=== PATIENT | female | born 1980 | race Caucasian/White ===

== ENCOUNTER 2016-06-22 16:48 | Emergency (ER) | payer MEDICAID ==
[~2016-06-22] VITALS: Ht 167.6 cm; Wt 132.3 kg
[~2016-06-22 16:48] MED LIST: ALBU17AE3 IH; AZIT-21; CEPH500C PO; CIPR-225 PO; HYDR-3714 PO; HYDR-87 PO; IBP600T1 PO; LORA10TA2; PHEN-640 PO; PRM25T PO; QUET100T PO; VNL75T PO
--- OUTSIDE RECORDS SUMMARY | 2016-06-22 16:53 | XMS REPORT | Continuity of Care Document ---
Author Author [facility] Organization [facility] Address Unknown Phone Unavailable Care Team Providers Care Web Systems Developer Name Role Phone PCP Unavailable Source Comments Some departments are not documenting in the electronic medical record. If you do not see the information that you expected, contact Release of Information in the Health Information Management department at [phone] for further assistance in locating additional records.[facility] Active Allergies and Adverse Reactions Not on File Current Medications Not on file Active Problems Not on file Social History Tobacco Use Types Packs/Day Years Used Date Never Assessed Plan of Care Health Maintenance Due Date Last Done Comments Physical (Comprehensive) 02/23/1988 Exam Pertussis Vaccine 02/23/1992 Tetanus Vaccine 1998 Cervical Cancer Screening 2002 Influenza Vaccine 01/15/2016 Results from Last 3 Months Not on file
[2016-06-22] MEDS ORDERED: FURO40TA4 PO (17:31)
[2016-06-22] MEDS ORDERED: POTA10TA10 PO (17:31)
--- NOTE | 2016-06-22 17:38 | ED Upper Extremity ---
General Chief Complaint: Upper Extremity Stated Complaint: L HAND PAIN FROM INJURY Nursing Triage Note: l finger pain after injuring it last night. Nursing Sepsis Screen: No Definite Risk Source: patient, family (sister) Exam Limitations: language barrier (sister interprets) History of Present Illness Time seen by provider: 17:38 Initial Comments 36-year-old female patient presents to the emergency department complains of left 2nd finger pain after falling last night. Reports jamming the finger into the ground. Denies hitting her head, loss of consciousness, neck pain, back pain. Location Injury Occurred: home Onset: yesterday Pain/Injury Location: left 2nd finger Method of Injury: direct blow Modifying Factors: Worse With Movement Allergies and Home Medications Allergies Coded Allergies: pseudoephedrine (Unverified Allergy, Unknown, 01/20/16) Home Medications Furosemide 40 Mg Tablet #30 40 MG PO DAILY (Reported) Hydrocodone/Ibuprofen 1 Each Tablet 1 EACH PO Q6H PRN PRN PAIN (Reported) Potassium Chloride 10 Meq Tablet.er #30 10 MEQ PO DAILY (Reported) Quetiapine Fumarate 100 Mg Tablet 100 MG PO HS (Reported) Venlafaxine HCl 75 Mg Tab 75 MG PO BID (Reported) Constitutional: no symptoms reported Musculoskeletal: see HPI joint pain (left second finger)No joint swelling Skin: No change in color, No lumps Psychiatric/Neurological: Denies Numbness, Denies Paresthesia, Denies Tingling , Denies Weakness All Other Systems Reviewed Negative Unless Noted: Yes (Negative excepted noted.) Past Dhehbsf-Vhhlmj-Xwnech Hx Patient Social History Alcohol Use: Denies Use Recreational Drug Use: No Smoking Status: Current Everyday Smoker Type Used: Cigarettes Recent Foreign Travel: No Contact w/Someone Who Travel: No Recent Infectious Disease Expo: No Recent Hopitalizations: No Seasonal Allergies Seasonal Allergies: No Surgeries HX Surgeries: Yes (kidney surgery at age 4, R knee scope) Surgeries: Gallbladder, Orthopedic Respiratory Hx Respiratory Disorders: Yes Respiratory Disorders: Asthma Cardiovascular Hx Cardiac Disorders: No Neurological Hx Neurological Disorders: No Reproductive System Hx Reproductive Disorders: No Sexually Transmitted Disease: No Genitourinary Hx Genitourinary Disorders: Yes (kidney surgery at age 4, left ureteral obstruction) Gastrointestinal Hx Gastrointestinal Disorders: No Musculoskeletal Hx Musculoskeletal Disorders: No Endocrine Hx Endocrine Disorders: No HEENT HX ENT Disorders: Yes Hearing Impairment: Hard of Hearing, Deaf Cancer Hx Cancer: No Psychosocial Hx Psychiatric Problems: Yes Behavioral Health Disorders: Anxiety, Bipolar, Depression Integumentary HX Skin/Integumentary Disorder: Yes Skin/Integumentary Disorders: Psoriasis Blood Transfusions Hx Blood Disorders: No Reviewed Nursing Assessment Reviewed/Agree w Nursing PMH: Yes Family Medical History Significant Family History: No Pertinent Family Hx Physical Exam Vital Signs Vital Sign - Last 12Hours 06/22/16 17:31 Temp 96.0 Pulse 66 Resp 20 B/P 116/72 Pulse Ox 100 Capillary Refill : Less Than 3 Seconds General Appearance: WD/WN no apparent distress Elbow/Forearm: normal inspection, non-tender, no evidence of injury, normal ROM , Left Wrist: Yes normal inspection, Yes non-tender, Yes no evidence of injury, Yes normal ROM Hand: Left, bone tenderness (left second finger), limited ROM (left second finger), soft tissue tenderness (left second finger), stiffness (left second finger) Neurologic/Tendon: normal sensation normal motor functions normal tendon functions responds to pain no evidence tendon injury Neurologic/Psychiatric: no motor/sensory deficits alert normal mood/affect oriented x 3 Skin: normal color warm/dry Progress/Results/Core Measures Results/Orders My Orders Orders-ASIA MCMILLAN Hand, Left, 3 Views (06/22/16 17:09) Tramadol Tablet (Ultram Tablet) (06/22/16 17:53) Vital Signs/I&O Vital Sign - Last 12Hours 06/22/16 17:31 Temp 96.0 Pulse 66 Resp 20 B/P 116/72 Pulse Ox 100 Blood Pressure Mean: 87 Diagnostic Imaging Diagonstic Imaging: Xray Plain Films/CT/US/NM/MRI: hand Comments FINDINGS: Three views of the left hand demonstrate normal ossification. No fracture, dislocation or foreign body is present. IMPRESSION: Normal left hand. Dictated by: Dictated on workstation # [id number] Reviewed: Reviewed by Me (radiology report reviewed by me) Departure Communication Progress Notes Diagnostic findings discussed with the patient and family. Proceed with discharge to home. Fingers jaylin taped in the ED. Impression Impression: Primary Impression: Jammed interphalangeal joint of finger of left hand Qualified Code: S69.92XA - Unspecified injury of left wrist, hand and finger(s ), initial encounter Disposition: 01 HOME, SELF-CARE Condition: Improved Departure-Patient Inst. Decision time for Depature: :56 Referrals: SINAN QUINONES MD (PCP/Family) Primary Care Physician Patient Instructions: Lissa Stout (DC) Add. Discharge Instructions: All discharge instructions reviewed with patient and/or family. Voiced understanding. Tylenol extra strength [id number] as directed for pain. Ibuprofen 800 mg by mouth every 8 hours as needed for pain. Elevate the left hand on pillows, ice pack for 20 minute intervals as needed for pain. States that he tape the finger to the middle finger. Follow-up with the family practitioner if no improvement in symptoms in 7-10 days. Return to the emergency department for worsened symptoms or any other concerns. ASIA MCMILLAN Jun 22, 2016 17:38
--- NOTE | 2016-06-22 17:40 | Diagnostic Imaging Report ---
INDICATION: Fell last night, jammed left second digit; pain entire digit. FINDINGS: Three views of the left hand demonstrate normal ossification. No fracture, dislocation or foreign body is present. IMPRESSION: Normal left hand. Dictated by: Dictated on workstation # [id number]
[2016-06-22 18:06] VITALS: BP 130/72
== END 2016-06-22 18:06 | disposition home or self-care (01) ==
LOC: EDUNIT# 16:48 → ER 16:49
DX: S69.82XA Other specified injuries of left wrist, hand and finger(s), initial encounter (principal); W23.1XXA Caught, crushed, jammed, or pinched between stationary objects, initial encounter; W01.0XXA Fall on same level from slipping, tripping and stumbling without subsequent striking against object, initial encounter; Y99.8 Other external cause status; F17.210 Nicotine dependence, cigarettes, uncomplicated
CPT/HCPCS: 73130; 99282

== ENCOUNTER 2016-07-10 22:33 | Emergency (ER) | payer MEDICAID ==
[~2016-07-10] VITALS: Ht 167.6 cm; Wt 127.9 kg
[~2016-07-10 22:33] MED LIST changes: +FURO40TA4 PO; +POTA10TA10 PO
--- OUTSIDE RECORDS SUMMARY | 2016-07-10 22:39 | XMS REPORT | Continuity of Care Document ---
Author Author [facility] Organization [facility] Address Unknown Phone Unavailable Care Team Providers Care C Developer Name Role Phone PCP Unavailable Source Comments Some departments are not documenting in the electronic medical record. If you do not see the information that you expected, contact Release of Information in the Health Information Management department at [phone] for further assistance in locating additional records.[facility] Active Allergies and Adverse Reactions Not on [...]
--- NOTE | 2016-07-10 23:00 | ED Lower Extremity ---
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 NO OTHER C/O VOICED Nursing Sepsis Screen: No Definite Risk Source: patient, RN notes reviewed Exam Limitations: no limitations History of Present Illness Time seen by provider: 23:00 Initial Comments As above and below. C/O pain and an abrasion. Tetanus is reportedly up to date. Denies any other injuries. Onset: just prior to arrival Severity: moderate Pain/Injury Location: left knee Method of Injury: fell Modifying Factors: Worse With Movement, Improves With Rest Allergies and Home Medications Allergies Coded Allergies: pseudoephedrine (Unverified Allergy, Unknown, 01/20/16) Home Medications Diclofenac Potassium 50 Mg Tablet #30 50 MG PO Q8H PRN PRN KNEE PAIN/SWELLING Prescribed by: BANDAR OSORIO on 07/10/16 2340 Furosemide 40 Mg Tablet #30 40 MG PO DAILY (Reported) Hydrocodone/Ibuprofen 1 Each Tablet 1 EACH PO Q6H PRN PRN PAIN (Reported) Potassium Chloride 10 Meq Tablet.er #30 10 MEQ PO DAILY (Reported) Quetiapine Fumarate 100 Mg Tablet 100 MG PO HS (Reported) Venlafaxine HCl 75 Mg Tab 75 MG PO BID (Reported) Constitutional: see HPI : No Musculoskeletal: see HPI other ((+) left knee pain) Skin: see HPI other ((+) abrasion left knee) All Other Systems Reviewed Negative Unless Noted: Yes (Negative excepted noted.) Past Cvctyit-Rbkihk-Jrimqf Hx Patient Social History Alcohol Use: Denies Use Recreational Drug Use: No Smoking Status: Current Everyday Smoker Type Used: Cigarettes Recent Foreign Travel: No Contact w/Someone Who Travel: No Recent Infectious Disease Expo: No Recent Hopitalizations: No Seasonal Allergies Seasonal Allergies: No Surgeries HX Surgeries: Yes (kidney surgery at age 4, R knee scope) Surgeries: Gallbladder, Orthopedic Respiratory Hx Respiratory Disorders: Yes Respiratory Disorders: Asthma Cardiovascular Hx Cardiac Disorders: No Neurological Hx Neurological Disorders: No Reproductive System Hx Reproductive Disorders: No Sexually Transmitted Disease: No Genitourinary Hx Genitourinary Disorders: Yes (kidney surgery at age 4, left ureteral obstruction) Gastrointestinal Hx Gastrointestinal Disorders: No Musculoskeletal Hx Musculoskeletal Disorders: No Endocrine Hx Endocrine Disorders: No HEENT HX ENT Disorders: Yes Hearing Impairment: Hard of Hearing, Deaf Cancer Hx Cancer: No Psychosocial Hx Psychiatric Problems: Yes Behavioral Health Disorders: Anxiety, Bipolar, Depression Integumentary HX Skin/Integumentary Disorder: Yes Skin/Integumentary Disorders: Psoriasis Blood Transfusions Hx Blood Disorders: No Family Medical History Significant Family History: No Pertinent Family Hx Physical Exam Vital Signs Vital Sign - Last 12Hours 07/10/16 22:45 Temp 97.8 Pulse 77 Resp 20 B/P 116/81 Pulse Ox 99 O2 Delivery Room Air Capillary Refill : Less Than 3 Seconds General Appearance: WD/WN mild distress obese Cardiovascular: regular rate, rhythm Respiratory: no respiratory distress Gastrointestinal: other (obese) Knees: left knee pain, left knee soft tissue tenderness Neurologic/Psychiatric: no motor/sensory deficits alert oriented x 3 Skin: warm/dry other (road rash like abrasion left anterior knee) Progress/Results/Core Measures Results/Orders My Orders Orders-BANDAR OSORIO DO Knee, Left, 3 Views (07/10/16 23:00) Knee Immobilizer (07/10/16 23:36) Rx-Tramadol Hcl (Rx-Ultram) (07/10/16 23:36) Vital Signs/I&O Vital Sign - Last 12Hours 07/10/16 22:45 Temp 97.8 Pulse 77 Resp 20 B/P 116/81 Pulse Ox 99 O2 Delivery Room Air Blood Pressure Mean: 93 Diagnostic Imaging Diagonstic Imaging: Xray Plain Films/CT/US/NM/MRI: knee (appears negative for anything acute) Departure Impression Impression: Primary Impression: Fall Additional Impressions: Contusion of knee, left Abrasion Disposition: 01 HOME, SELF-CARE Condition: Stable Departure-Patient Inst. Decision time for Depature: 23:38 Referrals: SINAN QUINONES MD (PCP/Family) Primary Care Physician Patient Instructions: Contusion (DC), Skin Abrasions (DC) Add. Discharge Instructions: All discharge instructions reviewed with patient and/or family. Voiced understanding. WILL NEED TO FOLLOW UP WITH YOUR PCP IF NOT DOING BETTER IN 5-7 DAYS. IF THAT IS THE CASE, MAY NEED A MRI OF YOUR KNEE. Scripts Diclofenac Potassium 50 Mg Tcreia91 Mg PO Q8H PRN KNEE PAIN/SWELLING #30 TAB Ref 0 Prov:BANDAR OSORIO DO 07/10/16 BANDAR OSORIO DO Jul 10, 2016 23:00
[2016-07-10] MEDS ORDERED: RX-TRAMADOL 50 MG (ULTRAM) TAB PPK#4 PO STA (23:36)
[2016-07-10] MEDS ORDERED: DICL50TA4 PO (23:40)
[2016-07-10 23:43] VITALS: BP 0/0
--- NOTE | 2016-07-11 06:45 | Diagnostic Imaging Report ---
INDICATION: Knee pain COMPARISON: 01/11/13 FINDINGS: 3 views of the left knee are obtained. No acute fracture, malalignment or osseous destructive process is seen. The joint spaces are preserved and the articular margins appear smooth. There is no evidence of joint effusion. There is, however, moderate soft tissue swelling ventral to the patella and patellar tendon. IMPRESSION: Soft tissue swelling ventral to the knee. No additional abnormality is demonstrated. Dictated by: Dictated on workstation # [id number]
== END 2016-07-10 23:43 | disposition home or self-care (01) ==
LOC: EDUNIT# 22:33 → ER 22:36
DX: S80.02XA Contusion of left knee, initial encounter (principal); F17.210 Nicotine dependence, cigarettes, uncomplicated; W01.0XXA Fall on same level from slipping, tripping and stumbling without subsequent striking against object, initial encounter; Y99.8 Other external cause status
CPT/HCPCS: 73562; 99283

== ENCOUNTER 2016-07-28 08:45 | Outpatient (RCR) | payer MEDICAID ==
--- OUTSIDE RECORDS SUMMARY | 2016-07-27 16:37 | XMS REPORT | Continuity of Care Document ---
Author Author [facility] Organization [facility] Address Unknown Phone Unavailable Care Team Providers Care Die Barber Name Role Phone PCP Unavailable Source Comments Some departments are not documenting in the electronic medical record. If you do not see the information that you expected, contact Release of Information in the Health Information Management department at [phone] for further assistance in locating additional records.[facility] Active Allergies and Adverse Reactions Not [...]
[2016-07-27 17:00] LABS: RED BLOOD COUNT 2.72 10^6/uL (4.35-5.85); RETICULOCYTE % 2.31 % (0.50-2.40)
[~2016-07-28] VITALS: Ht 167.6 cm; Wt 128.2 kg
[2016-07-28] VITALS (8 sets, daily range): BP systolic 107–128; BP diastolic 61–83
[~2016-07-28 08:45] MED LIST changes: +DICL50TA4 PO
--- OUTSIDE RECORDS SUMMARY | 2016-07-28 08:57 | XMS REPORT | Continuity of Care Document ---
Author Author [facility] Organization [facility] Address Unknown Phone Unavailable Care Team Providers Care Surfboard Maker Name Role Phone PCP Unavailable Source Comments Some departments are not documenting in the electronic medical record. If you do not see the information that you expected, contact Release of Information in the Health Information Management department at [phone] for further assistance in locating additional records.[facility] Active Allergies and Adverse Reactions Not [...]
[2016-07-28] MEDS ORDERED: NS IV 500 ML 500 ML IV ONE (14:15)
[2016-07-28 15:34] LABS: %SAT TOTAL IRON BINDING CAPIC 2 % (15-50); TIBC <461 ug/dL (280-380)
[2016-07-29 07:37] LABS: UIBC 451 ug/dL (55-450)
[2016-08-01] MEDS ORDERED: CEFD300C3 PO (02:32)
[2016-08-20] MEDS ORDERED: FERR-65 PO (02:02)
[2016-08-20] MEDS ORDERED: PERM60CR4 TP (02:06)
[2016-08-20] MEDS ORDERED: PERM59LI4 TP (02:06)
[2016-09-20] MEDS ORDERED: FERR-74 PO (16:36)
[2016-09-20] MEDS ORDERED: QUET100T69 PO (16:36)
[2016-09-21] MEDS ORDERED: VNL75T PO (15:46)
[2016-09-25] MEDS ORDERED: SULF1TAB35 PO (10:47)
[2016-09-25] MEDS ORDERED: PANT40TA3 PO (10:47)
== END 2016-10-25 | disposition home or self-care (01) ==
LOC: LAB 08:45 → EDSTATUS 08:53
PROVIDERS: ATTEND Internal Medicine
DX: D64.9 Anemia, unspecified (principal)
CPT/HCPCS: 36415; 36430; 82728; 83540; 85045; 86850; 86900; 86901; 86920

== ENCOUNTER 2016-07-31 23:12 | Emergency (ER) | payer MEDICAID ==
[~2016-07-31] VITALS: Ht 167.6 cm; Wt 127.5 kg
--- OUTSIDE RECORDS SUMMARY | 2016-07-31 23:19 | XMS REPORT | Continuity of Care Document ---
Author Author [facility] Organization [facility] Address Unknown Phone Unavailable Care Team Providers Care Continuous Improvement Facilitator Name Role Phone PCP Unavailable Source Comments Some departments are not documenting in the electronic medical record. If you do not see the information that you expected, contact Release of Information in the Health Information Management department at [phone] for further assistance in locating additional records.[facility] Active Allergies and Adverse Reactions Not [...]
[2016-08-01 00:40] LABS: BASOPHILS % (AUTO) 0 % (0-10); EOSINOPHILS # (AUTO) 0.7 10^3/uL (0.0-0.3); EOSINOPHILS % (AUTO) 7 % (0-10); LYMPHOCYTES # (AUTO) 1.3 X 10^3 (1.0-4.0); LYMPHOCYTES % (AUTO) 12 % (12-44); MEAN CORPUSCULAR HEMOGLOBIN 22 PG (25-34); MEAN CORPUSCULAR HGB CONC 29 G/DL (32-36); MEAN CORPUSCULAR VOLUME 73 FL (80-99); MEAN PLATELET VOLUME 9.8 FL (7.4-10.4); MONOCYTES % (AUTO) 9 % (0-12); NEUTROPHILS # (AUTO) 7.8 X 10^3 (1.8-7.8); NEUTROPHILS % (AUTO) 72 % (42-75); PLATELET COUNT 510 10^3/uL (130-400); RED BLOOD COUNT 3.25 10^6/uL (4.35-5.85); WHITE BLOOD COUNT 10.8 10^3/uL (4.3-11.0)
[2016-08-01 00:48] LABS: INR 1.1 (0.8-1.4); PROTHROMBIN TIME PATIENT 14.3 SEC (12.2-14.7)
[2016-08-01 01:02] LABS: ALANINE AMINOTRANSFERASE 12 U/L (0-55); ALBUMIN 3.1 G/DL (3.2-4.5); ANION GAP 11 MMOL/L (5-14); ASPARTATE AMINO TRANSFERASE 12 U/L (5-34); BILIRUBIN,TOTAL 0.4 MG/DL (0.1-1.0); BLOOD UREA NITROGEN 11 MG/DL (7-18); BUN/CREATININE RATIO 15; CALCIUM 9.1 MG/DL (8.5-10.1); CARBON DIOXIDE 24 MMOL/L (21-32); CHLORIDE 102 MMOL/L (98-107); CREATININE SERUM 0.74 MG/DL (0.60-1.30); GFR ESTIMATED > 60; GLUCOSE 96 MG/DL (70-105); POTASSIUM 2.8 MMOL/L (3.6-5.0); SODIUM 137 MMOL/L (135-145)
[2016-08-01 01:51] LABS: BILIRUBIN,URINE NEGATIVE (NEGATIVE); KETONES,URINE NEGATIVE (NEGATIVE); LEUKOCYTE ESTERASE ,URINE 3+ (NEGATIVE); NITRITE,URINE NEGATIVE (NEGATIVE); PH,URINE 6 (5-9); PROTEIN,URINE 1+ (NEGATIVE); UROBILINOGEN,URINE NORMAL (NORMAL)
[2016-08-01 02:18] LABS: WBC,URINE 0-2 /HPF
--- NOTE | 2016-08-01 02:22 | ED General ---
General Chief Complaint: General Problems/Pain Stated Complaint: COUGH/SOA WEAK/LETHARGIC Nursing Triage Note: PT TO ED 4 W/ C/O WEAKNESS X2-3 WKS. SISTER REPORTS PT RECENTLY HAD BLOOD TRANSFUSION ORDERED BY DR QUINONES BUT HAS NOT HAD F/U SINCE. Nursing Sepsis Screen: No Definite Risk Source of Information: Other (SISTER DOES ALL TALKING FOR PT--PT IS DEAF AND ALSO APPEARS TO BE M.R. ) History of Present Illness Time Seen by Provider: 23:45 Initial Comments PT AND SISTER ARE BOTH BEING SEEN TONIGHT FOR UNRELATED PROBLEMS PT HAD LAB DONE OUTPATIENT AT [facility] ON TUESDAY, RESULTS RECEIVED ON TUESDAY , WAS TOLD HGB WAS 4 AND HAD 2 UNITS OF BLOOD ON TUESDAY. NO HISTORY OF ANEMIA. NO ADDITIONAL TESTS DONE WAS FINE ON TUESDAY, AND BEGAN FEELING WEAK AGAIN ON TUESDAY AND CONTINUES TO FEEL WEAK AND TIRED--"SLEPT ALL DAY TODAY" AND WOKE UP AT 3:00 PM FEELING WEAK AND DIZZY HAS HAD DECREASED APPETITE--HAD MACARONI AND CHEESE AND SPAGHETTI TODAY TO EAT AND DRANK 88 OZ OF LIQUIDS TODAY. HAS HAD A COUGH SINCE TUESDAY NO FEVER NO CHEST PAIN HAS FELT SHORT OF BREATH NO ABDOMINAL PAIN NO NAUSEA/VOMITING/DIARRHEA--NO BLACK / BLOODY/TARRY/ STOOLS NO URINARY SYMPTOMS PCP: DR. QUINONES Allergies and Home Medications Allergies Coded Allergies: pseudoephedrine (Unverified Allergy, Unknown, 01/20/16) Home Medications Cefdinir 300 Mg Capsule #20 300 MG PO BID Prescribed by: RON FOY on 08/01/16 0232 Diclofenac Potassium 50 Mg Tablet #30 50 MG PO Q8H PRN PRN KNEE PAIN/SWELLING Prescribed by: BANDAR OSORIO on 07/10/16 2340 Furosemide 40 Mg Tablet #30 40 MG PO DAILY (Reported) Hydrocodone/Ibuprofen 1 Each Tablet 1 EACH PO Q6H PRN PRN PAIN (Reported) Potassium Chloride 10 Meq Tablet.er #30 10 MEQ PO DAILY (Reported) Quetiapine Fumarate 100 Mg Tablet 100 MG PO HS (Reported) Venlafaxine HCl 75 Mg Tab 75 MG PO BID (Reported) Constitutional: see HPINo chills, No diaphoresis, dizzinessNo fever, malaise weakness EENTM: no symptoms reported Respiratory: see HPI cough dyspnea on exertion short of breath Cardiovascular: no symptoms reported Gastrointestinal: see HPINo abdominal pain, No constipation, No diarrhea, No hematemesis, loss of appetiteNo melena, No nausea, No vomiting Genitourinary: no symptoms reported Musculoskeletal: no symptoms reported Skin: no symptoms reported Psychiatric/Neurological: No Symptoms Reported Hematologic/Lymphatic: See HPI Anemia Immunological/Allergic: no symptoms reported Past Jacjezf-Prdcqi-Qvxphm Hx Patient Social History Alcohol Use: Denies Use Recreational Drug Use: No Smoking Status: Current Everyday Smoker Type Used: Cigarettes Recent Foreign Travel: No Contact w/Someone Who Travel: No Recent Infectious Disease Expo: No Recent Hopitalizations: No Seasonal Allergies Seasonal Allergies: No Surgeries HX Surgeries: Yes (kidney surgery at age 4, R knee scope) Surgeries: Gallbladder, Orthopedic, Renal Respiratory Hx Respiratory Disorders: Yes Respiratory Disorders: Asthma Cardiovascular Hx Cardiac Disorders: No Neurological Hx Neurological Disorders: No Reproductive System Hx Reproductive Disorders: No Sexually Transmitted Disease: No Genitourinary Hx Genitourinary Disorders: Yes (kidney surgery at age 4, left ureteral obstruction) Gastrointestinal Hx Gastrointestinal Disorders: No Musculoskeletal Hx Musculoskeletal Disorders: No Endocrine Hx Endocrine Disorders: Yes (OBESITY) HEENT HX ENT Disorders: Yes Hearing Impairment: Hard of Hearing, Deaf Cancer Hx Cancer: No Psychosocial Hx Psychiatric Problems: Yes Behavioral Health Disorders: Anxiety, Bipolar, Depression Integumentary HX Skin/Integumentary Disorder: Yes Skin/Integumentary Disorders: Psoriasis Blood Transfusions Hx Blood Disorders: Yes (ANEMIA) Family Medical History Significant Family History: No Pertinent Family Hx Physical Exam Vital Signs Vital Sign - Last 12Hours 07/31/16 23:27 Temp 99.7 Pulse 85 Resp 16 B/P 126/80 Pulse Ox 98 O2 Delivery Room Air Capillary Refill : Less Than 3 Seconds General Appearance: No Apparent Distress Other (MORBIDLY OBESE, SLEEPING. VERY MALODOROUS. PT IS DEAF, ALSO APPEARS TO BE M.R. 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 Norm as Tested Other (DROWSY) Skin: Normal Color Warm/Dry Focused Exam Lactic Acid Level Laboratory Tests Test 08/01/16 00:15 08/01/16 02:18 Alanine Aminotransferase (ALT/SGPT) 12U/L (0-55) Albumin 3.1G/DL (3.2-4.5) L Alkaline Phosphatase 99U/L (40-136) Anion Gap 11MMOL/L (5-14) Aspartate Amino Transf (AST/SGOT) 12U/L (5-34) BUN/Creatinine Ratio 15 Blood Urea Nitrogen 11MG/DL (7-18) Calcium Level 9.1MG/DL (8.5-10.1) Carbon Dioxide Level 24MMOL/L (21-32) Chloride Level 102MMOL/L (98-107) Creatinine 0.74MG/DL (0.60-1.30) Estimat Glomerular Filtration Rate > 60 Glucose Level 96MG/DL (70-105) Lactic Acid Level 2.20MMOL/L (0.50-2.00) *H Potassium Level 2.8MMOL/L (3.6-5.0) L Serum Test, Qualitative NEGATIVE (NEGATIVE) Sodium Level 137MMOL/L (135-145) Total Bilirubin 0.4MG/DL (0.1-1.0) Total Protein 7.0G/DL (6.4-8.2) Progress/Results/Core Measures Results/Orders Lab Results Laboratory Tests Test 08/01/16 00:15 08/01/16 01:44 08/01/16 02:18 Range/Units Activated Partial Thromboplast Time 27 24-35 SEC Alanine Aminotransferase (ALT/SGPT) 12 0-55 U/L Albumin 3.1 L 3.2-4.5 G/DL Alkaline Phosphatase 99 40-136 U/L Anion Gap 11 5-14 MMOL/L Aspartate Amino Transf (AST/SGOT) 12 5-34 U/L BUN/Creatinine Ratio 15 Basophils # (Auto) 0.0 0.0-0.1 10^3/uL Basophils (%) (Auto) 0 0-10 % Blood Urea Nitrogen 11 7-18 MG/DL Calcium Level 9.1 8.5-10.1 MG/DL Carbon Dioxide Level 24 21-32 MMOL/L Chloride Level 102 98-107 MMOL/L Creatinine 0.74 0.60-1.30 MG/DL Eosinophils # (Auto) 0.7 H 0.0-0.3 10^3/uL Eosinophils (%) (Auto) 7 0-10 % Estimat Glomerular Filtration Rate > 60 Glucose Level 96 70-105 MG/DL Hematocrit 24 L 35-52 % Hemoglobin 7.0 L 11.5-16.0 G/DL INR Comment 1.1 0.8-1.4 Lactic Acid Level 2.20 *H 0.50-2.00 MMOL/L Lymphocytes # (Auto) 1.3 1.0-4.0 X 10^3 Lymphocytes (%) (Auto) 12 12-44 % Mean Corpuscular Hemoglobin 22 L 25-34 PG Mean Corpuscular Hemoglobin Concent 29 L 32-36 G/DL Mean Corpuscular Volume 73 L 80-99 FL Mean Platelet Volume 9.8 7.4-10.4 FL Monocytes # (Auto) 1.0 0.0-1.0 X 10^3 Monocytes (%) (Auto) 9 0-12 % Neutrophils # (Auto) 7.8 1.8-7.8 X 10^3 Neutrophils (%) (Auto) 72 42-75 % Platelet Count 510 H 130-400 10^3/uL Potassium Level 2.8 L 3.6-5.0 MMOL/L Prothrombin Time 14.3 12.2-14.7 SEC Red Blood Count 3.25 L 4.35-5.85 10^6/uL Red Cell Distribution Width 19.0 H 10.0-14.5 % Serum Test, Qualitative NEGATIVE NEGATIVE Sodium Level 137 135-145 MMOL/L Total Bilirubin 0.4 0.1-1.0 MG/DL Total Protein 7.0 6.4-8.2 G/DL White Blood Count 10.8 4.3-11.0 10^3/uL Urine Amorphous Sediment FEW SARA URATES H /LPF Urine Bacteria MODERATE H /HPF Urine Bilirubin NEGATIVE NEGATIVE Urine Casts NONE /LPF Urine Clarity SLIGHTLY CLOUDY Urine Color YELLOW Urine Crystals PRESENT H /LPF Urine Culture Indicated YES Urine Glucose (UA) NEGATIVE NEGATIVE Urine Ketones NEGATIVE NEGATIVE Urine Leukocyte Esterase 3+ H NEGATIVE Urine Mucus SMALL H /LPF Urine Nitrite NEGATIVE NEGATIVE Urine Protein 1+ H NEGATIVE Urine RBC 0-2 /HPF Urine RBC (Auto) 2+ H NEGATIVE Urine Specific [place] 1.010 L 1.016-1.022 Urine Squamous Epithelial Cells 2-5 /HPF Urine Urobilinogen NORMAL NORMAL MG/DL Urine WBC 0-2 /HPF Urine pH 6 5-9 Micro Results Microbiology 08/01/16 Influenza Types A,B Antigen (KYLIE) - Final, Complete My Orders Orders-LAWRON Perez DO Saline Lock/Iv-Start (08/01/16 00:07) Cbc With Automated Diff (08/01/16 00:07) Comprehensive Metabolic Panel (08/01/16 00:07) Hcg,Qualitative Serum (08/01/16 00:07) Lactic Acid Analyzer (08/01/16 00:07) Protime With Inr (08/01/16 00:07) Partial Thromboplastin Time (08/01/16 00:07) Ua Culture If Indicated (08/01/16 00:07) Blood Culture (08/01/16 00:07) Influenza A And B Antigens (08/01/16 00:07) Chest Pa/Lat (2 View) (08/01/16 00:07) Urine Culture (08/01/16 01:44) Potassium Chloride (Tablet) (Klor Con Ta (08/01/16 02:30) Ceftriaxone Injection (Rocephin Injectio (08/01/16 02:30) Ceftriaxone Injection (Rocephin Injectio (08/01/16 02:34) Ns (Ivpb) (Sodium Chloride 0.9% Ivpb Bag (08/01/16 02:35) Vital Signs/I&O Vital Sign - Last 12Hours 07/31/16 23:27 Temp 99.7 Pulse 85 Resp 16 B/P 126/80 Pulse Ox 98 O2 Delivery Room Air Blood Pressure Mean: 95 Progress Note : Progress Note UNEVENTFUL ER STAY Diagnostic Imaging Comments CXR--NO ACUTE PROCESS, PENDING RADIOLOGIST REVIEW Reviewed: Reviewed by Me Departure Communication Progress Notes 0225--SPOKE WITH DR. PARMAR, ADVISES TO SEND PT HOME AND SHE WILL ARRANGE FOR PT TO BE SEEN ON TUESDAY Impression Impression: Primary Impression: Anemia of unknown etiology Additional Impressions: Acute bronchitis UTI (urinary tract infection) Disposition: HOME, SELF-CARE Condition: Stable Departure-Patient Inst. Referrals: SINAN QUINONES MD (PCP/Family) Primary Care Physician Patient Instructions: Acute Bronchitis, Adult (DC), Normocytic Normochromic Anemia (DC), Urinary Tract Infection, Adult (DC) Add. Discharge Instructions: HOME REST TAKE YOUR MEDICATIONS PRESCRIBED FOLLOW UP WITH [facility] ON TUESDAY FOR FURTHER CARE--CALL IN AM FOR APPOINTMENT All discharge instructions reviewed with patient and/or family. Voiced understanding. Scripts Cefdinir 300 Mg [id number] Mg PO BID FOR INFECTION #20 CAP Prov:RON FOY DO 08/01/16 RON FOY DO Aug 01, 2016 02:22
[2016-08-01] MEDS ORDERED: cefTRIAXone INJECTION 1,000 MG in NS (IVPB) 50 ML IV ONE (02:30)
[2016-08-01] MEDS ORDERED: KCL 10 MEQ TAB (MICRO K) PO ONE ×2 (02:30→02:35)
[2016-08-01] MEDS ORDERED: CEFD300C3 PO (02:32)
[2016-08-01] MEDS ORDERED: cefTRIAXone 1 GM (ROCEPHIN) VIAL ONE (02:34)
[2016-08-01] MEDS ORDERED: NS (IVPB) 50 ML ONE (02:35)
[2016-08-01 02:55] VITALS: BP 131/78
--- NOTE | 2016-08-01 07:58 | Diagnostic Imaging Report ---
EXAM: PA and lateral chest at 1:22. INDICATION: Weakness COMPARISON: There are no prior studies available for comparison. FINDINGS: The heart size is within normal limits. There is elevation of the left hemidiaphragm. Most likely this is long-standing in nature. The lungs are clear. There is no sign of failure, pneumonia or pleural effusion. The mediastinum is not widened. The osseous structures are intact. IMPRESSION: 1. There is no evidence for acute cardiopulmonary abnormality. 2. The elevation of left hemidiaphragm is most likely chronic in nature. If previous studies are available, they would be helpful. Dictated by: Dictated on workstation # [id number]
== END 2016-08-01 02:55 | disposition home or self-care (01) ==
LOC: EDUNIT# 23:12 → ER 23:15
DX: D64.9 Anemia, unspecified (principal); J20.9 Acute bronchitis, unspecified; N39.0 Urinary tract infection, site not specified; E66.01 Morbid (severe) obesity due to excess calories; F17.210 Nicotine dependence, cigarettes, uncomplicated; F79 Unspecified intellectual disabilities; H91.93 Unspecified hearing loss, bilateral
CPT/HCPCS: 36415; 71020; 80053; 81000; 83605; 84703; 85025; 85610; 85730; 87040; 87088; 87804; 96374

== ENCOUNTER 2016-08-05 05:55 | Outpatient (CLI) | payer MEDICAID ==
[~2016-08-05] VITALS: Ht 167.6 cm; Wt 127.7 kg
[~2016-08-05 05:55] MED LIST changes: +CEFD300C3 PO
== END 2016-08-05 14:50 ==
LOC: PREOP 05:55
PROVIDERS: ATTEND Internal Medicine
DX: Z01.818 Encounter for other preprocedural examination (principal); R10.12 Left upper quadrant pain; R63.4 Abnormal weight loss; D50.9 Iron deficiency anemia, unspecified

== ENCOUNTER 2016-08-06 08:04 | Day surgery (SDC) | payer MEDICAID ==
[2016-08-06] VITALS (10 sets, daily range): BP systolic 103–134; BP diastolic 53–87
[~2016-08-06] VITALS: Ht 167.6 cm; Wt 127.7 kg
--- NOTE | 2016-08-06 08:20 | HISTORY AND PHYSICAL ---
DATE OF ADMISSION: 08/06/2016 DICTATING PHYSICIAN: Dr. John REASON FOR ADMISSION: EGD Mrs. Calderon is a 36-year-old white female with developmental disability, as well as severe hearing impairment that hampered history taking. She comes with her sister who is her primary caregiver and most of the history is taken from her sister. Apparently she has not felt well for 6 months and is noted to be anemic for at least the past month. Her hemoglobin had gotten down to as low as 5 approximately 10 days ago and a week ago she received 2 units of packed cells which increased her level to 7. Her sister said that she been increasing lethargic the past several weeks sleeping for 18 hours a day. Her sister does sometimes help her with toileting and had not noted black stools or melena. She has been experiencing left upper quadrant, left upper side and left flank pain. On a CT ABD scan in April, she was noted to have proximal and mid left-sided hydronephrosis. She must have had some earlier studies showing similar findings as an outpatient, as she had undergone cystoscopy and L ureteroscopy per Dr. Julian that did not reveal any evidence for ureteral obstruction with visualization to the left ureteral pelvis. She was most recently noted to be positive for MRSA in the urine. on 08/01; however, she only had 0 to 2 white cells per high power field. Her CBC and iron studies were compatible with iron deficiency. She is still menstruating with last menstrual period reportedly 2 weeks ago. She has just finished up a course of Cipro. Her p.o. intake remains poor although she is keeping fluids down without nausea or vomiting. Sister reports no association with meal timing and her abdominal pain. She denies diarrhea or constipation. She has not been aware of any chills, fever, night sweats. There is a significant smoking history still about a pack per day and NSAID use in the form of ibuprophen. PAST MEDICAL HISTORY: Significant for: 1. Asthma. 2. Peripheral edema. 3. Depression. MEDICATIONS: On admission include: 1. Hydroxyzine 25 mg q.8 h. p.r.n. 2. Ibuprofen 600 mg t.i.d. p.r.n. 3. ProAir 2 puffs q.4 p.r.n. 4. Zofran 8 mg q.4 p.r.n. nausea. 5. Venlafaxine 75 mg b.i.d. 6. Furosemide 40 mg p.o. daily. 7. Gabapentin 300 mg t.i.d. 8. Seroquel 100 mg at bedtime. 9. Hydrocodone 7.5 plus 200 mg of ibuprofen q.6 p.r.n. PAST SURGICAL HISTORY: Significant for: 1. Cholecystectomy. 2. Bilateral knee arthroscopy. 3. She does have morbid obesity. She has lost 33 pounds since March 2016. PHYSICAL EXAMINATION: Reveals an obese white female with flat affect. VITAL SIGNS: Blood pressure is 100/60, with a heart rate is 80 and regular. NECK: Revealed no JVD, adenopathy or bruits. CHEST: Clear. No wheezing, rales or rhonchi are noted. CV: Reveals a regular rate and rhythm without murmur, S3 or S4. ABDOMEN: Reveals left upper quadrant and left pain to palpation. There is guarding present. No mass or organomegaly is noted. No pain is noted elsewhere in the abdomen. Obesity does preclude sensitivity to determination of mass. EXTREMITIES: Reveal no cyanosis, clubbing, or edema. Chronic venous insufficiency changes are noted in the lower extremities without evidence for ulceration. SKIN: Skin is dry. There is some generalized pallor present. ASSESSMENT: 1. Iron deficiency anemia with left upper quadrant, left side and left flank pain. She does have risk factors including smoking and nonsteroidal usage for peptic ulcer disease, so we will initiate EGD evaluation. Her sister did not believe there is anyway that she could get her prepped for an adequate colonoscopy, so we will hold off on this. We will obtain anesthesiology consultation for David to insure patient's safety. 2. With only 0 to 2 white cells per high-powered field, MRSA is more likely a contaminant than a urinary tract infection. May need to repeat CT scanning, perinephric abscess is a concern or other intra-abdominal pathology if EGD does not reveal ulceration or other upper GI tract pathology. We will likely repeat CBC, sedimentation rate and CRP levels after the patient's EGD. Sincerely, Job ID: [id number] Dictated Date: 08/05/2016 17:09:00 Slip Caster Date: 08/06/2016 06:23:27/hernan MCGOWAN
[2016-08-06] MEDS ORDERED: D5 LR IV SOLUTION 1,000 ML IV PRN (08:30)
[2016-08-06] MEDS ORDERED: MIDAZOLAM 2 MG/2 ML (VERSED) VIAL IVP PRN (08:30)
[2016-08-06] MEDS ORDERED: LIDOCAINE JELLY 2% (XYLOCAINE) 5 ML TUBE MM PRN (08:30)
[2016-08-06] MEDS ORDERED: FLUMAZENIL (ROMAZICON) 0.1 MG/ML 5 ML VIAL INJ PRN (08:30)
[2016-08-06] MEDS ORDERED: fentaNYL INJECTION 100 MCG/2 ML AMP IVP PRN (08:30)
[2016-08-06] MEDS ORDERED: NALOXONE 0.4 MG/ML 1 ML (NARCAN) VIAL IVP PRN (08:30)
[2016-08-06] MEDS ORDERED: HURRICAINE EXT TUBE (BENZOCAINE) XX PRN (08:30)
[2016-08-06] MEDS ORDERED: MIDAZOLAM 5 MG/5 ML (VERSED) VIAL ONE (08:56)
[2016-08-06] MEDS ORDERED: proPOfol 200 MG/20 ML (DIPRIVAN) VIAL IV ONE (08:56)
[2016-08-06 09:09] LABS: BASOPHILS % (AUTO) 0 % (0-10); EOSINOPHILS # (AUTO) 0.7 10^3/uL (0.0-0.3); EOSINOPHILS % (AUTO) 8 % (0-10); LYMPHOCYTES # (AUTO) 1.2 X 10^3 (1.0-4.0); LYMPHOCYTES % (AUTO) 15 % (12-44); MEAN CORPUSCULAR HEMOGLOBIN 21 PG (25-34); MEAN CORPUSCULAR HGB CONC 29 G/DL (32-36); MEAN CORPUSCULAR VOLUME 73 FL (80-99); MEAN PLATELET VOLUME 9.5 FL (7.4-10.4); MONOCYTES # (AUTO) 0.5 X 10^3 (0.0-1.0); MONOCYTES % (AUTO) 6 % (0-12); NEUTROPHILS # (AUTO) 5.4 X 10^3 (1.8-7.8); NEUTROPHILS % (AUTO) 70 % (42-75); PLATELET COUNT 467 10^3/uL (130-400); RED BLOOD COUNT 2.86 10^6/uL (4.35-5.85); RED CELL DISTRIBUTION WIDTH 19.3 % (10.0-14.5); WHITE BLOOD COUNT 7.8 10^3/uL (4.3-11.0)
[2016-08-06 09:28] LABS: ALANINE AMINOTRANSFERASE 10 U/L (0-55); ALBUMIN 2.9 G/DL (3.2-4.5); ANION GAP 12 MMOL/L (5-14); ASPARTATE AMINO TRANSFERASE 10 U/L (5-34); BILIRUBIN,TOTAL 0.3 MG/DL (0.1-1.0); BLOOD UREA NITROGEN 9 MG/DL (7-18); BUN/CREATININE RATIO 12; CARBON DIOXIDE 21 MMOL/L (21-32); CHLORIDE 106 MMOL/L (98-107); CREATININE SERUM 0.77 MG/DL (0.60-1.30); GFR ESTIMATED > 60; GLUCOSE 102 MG/DL (70-105); POTASSIUM 3.1 MMOL/L (3.6-5.0); SODIUM 139 MMOL/L (135-145); TOTAL PROTEIN 6.5 G/DL (6.4-8.2)
[2016-08-06 09:31] LABS: ANISOCYTOSIS MARKED; BAND NEUTROPHILS 0 %; BASOPHILS % (MANUAL) 0 %; EOSINOPHILS % (MANUAL) 14 %; HYPOCHROMASIA MARKED; LYMPHOCYTES % (MANUAL) 15 %; MICROCYTOSIS SLIGHT; NEUTROPHILS % (MANUAL) 68 %; POLYCHROMASIA SLIGHT; TARGET CELLS SLIGHT
[2016-08-06] MEDS ORDERED: LIDOCAINE JELLY 2% (XYLOCAINE) 5 ML TUBE ONE (09:36)
[2016-08-06 09:38] LABS: ERYTHROCYTE SEDIMENTATION RATE 72 MM/HR (0-20)
[2016-08-06] MEDS ORDERED: NS 100 ML (IVPB) BAG IV ONE (11:00)
[2016-08-06] MEDS ORDERED: IOHEXOL 350 MG/ML 100 ML (OMNIPAQUE 350) VIAL IV ONE (11:00)
[2016-08-06] MEDS ORDERED: CATHETER FLUSH 10 ML SYR IV PRN (11:00)
[2016-08-06] MEDS ORDERED: NS IV 500 ML 500 ML ONE (12:10)
--- NOTE | 2016-08-06 12:40 | Diagnostic Imaging Report ---
PROCEDURE: CT of the abdomen with and without contrast and CT of the pelvis with contrast. TECHNIQUE: Precontrast acquisitions were acquired through the abdomen. Multiple contiguous axial images were obtained through the abdomen and pelvis after administration of intravenous contrast. INDICATION: Anemia. History of hydronephrosis. 100 mL of Omnipaque 350 is administered intravenously. COMPARISON: 05/11/2016. FINDINGS: There are patchy groundglass opacities in the lung bases may relate to atelectasis or atypical pneumonia. The liver, the spleen, the pancreas, and the adrenal glands demonstrate no definite change from prior exam. This is of low density with suggestion of some fat components suggestive of adrenal myelolipoma. It is 3.4 cm in size and demonstrates no significant change from prior exams. There is mild/ moderate atrophy of the left renal parenchyma There is a severe left hydronephrosis associated with hydroureter with transition into normal caliber of the ureter in the upper aspect of the pelvis. There is no stone identified. There is delayed contrast excretion with no opacification of the dilated proximal left ureter. The right kidney demonstrates slight prominence of the renal collecting system with no evidence of obstruction and with excretion through the right ureter into the urinary bladder seen. The abdominal aorta is normal in caliber. Cholecystectomy clips are seen. No significant free fluid or fluid collection is seen in the abdomen or pelvis. There is moderate amount of fecal material in the colon. There is question of soft tissue fullness seen in the cecum. Underlying mass is not excluded. The area of fullness appears to be about 3.5 cm along the posterior wall at the base of the cecum. The osseous structures appear grossly unremarkable. IMPRESSION: 1. Patchy groundglass opacities in the lung bases are presumably related to atelectasis. If there is clinical suspicion, atypical pneumonia could be considered. 2. Worsening severe left hydronephrosis and hydroureter with transition point to normal caliber in the mid left ureter at the upper pelvis level. No stone is seen. Differential includes an occult TCC, fibrotic stricture, or functional abnormality. 3. There is question of soft tissue fullness in the base of the cecum. Colonoscopy is suggested to rule out a cecal mass. Findings were discussed with Dr. John by Dr. Merlos at time of dictation. Dictated by: Dictated on workstation # [id number]
--- OUTSIDE RECORDS SUMMARY | 2016-08-08 12:02 | XMS REPORT ---
Author SINAN Pinzon [facility] eClinical[employer] Address Unknown Phone Unavailable Care Team Providers Care Community Placement Worker Name Role Phone SINAN QUINONES CP Unavailable Allergies No Known Allergies Problems Problem Type Condition Code Onset Dates Condition Status Problem Low back pain M54.5 Active Problem Severe episode of recurrent major depressive disorder, without psychotic features F33.2 Active Problem Arthritis M19.90 Active Medications Medication Code System Code Instructions Start Date End Date Status Dosage Hydrocodone-Ibuprofen [facility] [address]-61 7.5-200 MG Orally every 6 hrs 1 tablet as needed Results No Known Results Summary Purpose eClinicalWorks Submission
--- OUTSIDE RECORDS SUMMARY | 2016-08-08 12:03 | XMS REPORT ---
Author Author SINAN QUINONES [facility] Address [address] [place] [address] Care Team Providers Care Rn Building Name Role Phone SINAN QUINONES Unavailable PROBLEMS Type Condition ICD9-CM Code [id number] Code Onset Dates Condition Status SNOMED Code Problem Hearing loss, bilateral H91.93 Active 23642679 Problem Arthritis M19.90 Active 5414600 Problem Low back pain M54.5 Active 087752651 Problem Severe episode of recurrent major depressive disorder, without psychotic features F33.2 Active 24589595 ALLERGIES No Known Allergies SOCIAL HISTORY No smoking Hx information available PLAN OF CARE VITAL SIGNS MEDICATIONS Medication Instructions Dosage Frequency Start Date End Date Duration Status Hydrocodone-Ibuprofen 7.5-200 MG Orally every 6 hrs 1 tablet as needed 6h Active RESULTS No Results PROCEDURES No Known procedures IMMUNIZATIONS No Known Immunizations
--- OUTSIDE RECORDS SUMMARY | 2016-08-08 12:03 | XMS REPORT ---
Author BANDAR Maloney Organization [employer] Address Unknown Phone Unavailable Care Team Providers Care Entry Level Staff Accountant Name Role Phone BANDAR SCHMIDT CP Unavailable Allergies, Adverse Reactions, Alerts Substance Reaction Event Type Sudafed hives Drug Allergy Problems Problem Type Condition Code Onset Dates Condition Status Problem Arthritis M19.90 Active Problem Low back pain M54.5 Active Problem Hearing loss, bilateral H91.93 Active Assessment Nail, ingrown L60.0 Active Problem Severe episode of recurrent major depressive disorder, without psychotic features F33.2 Active Assessment Onychomycosis B35.1 Active Medications Medication Code System Code Instructions Start Date End Date Status Dosage Ibuprofen [facility] [address]-31 600 MG Orally Three times a day, pc October 09, 2015 1 tablet Venlafaxine HCl [facility] [address]-45 75 MG Orally Twice a day November 07, 2015 1 tablet with food HydrOXYzine HCl [facility] [address]-14 25 MG Orally every 8 hrs 1 tablet as needed Hydrocodone-Ibuprofen [facility] [address]-12 7.5-200 MG Orally every 6 hrs 1 tablet as needed Seroquel [facility] [address]-47 100 MG Orally Once a day, at HS December 05, 2015 1 tablet ProAir HFA [facility] [address]-86 108 (90 Base) MCG/ACT Inhalation every 4 hrs 2 puffs as needed Procedures Procedure Coding System Code Date Office Visit, Est Pt., Level 2 CPT-4 35928 Mar 02, 2016 Vital Signs Date/Time: Mar 02, 2016 Cardiac Monitoring Heart Rate 88 bpm Weight 294 lbs Height 66 in BMI 47.45 Index Blood Pressure Diastolic 82 mmHg Blood Pressure Systolic 130 mmHg Results No Known Results Summary Purpose eClinicalWorks Submission
--- OUTSIDE RECORDS SUMMARY | 2016-08-08 12:03 | XMS REPORT ---
Author Author SINAN QUINONES [facility] Address [address] [place] [address] Care Team Providers Care Supervisor Cell Operation Name Role Phone SINAN QUINONES Unavailable PROBLEMS Type Condition ICD9-CM Code [id number] Code Onset Dates Condition Status SNOMED Code Problem Severe episode of recurrent major depressive disorder, without psychotic features F33.2 Active 19114771 Assessment Low back pain M54.5 Apr, Active 356129425 Problem Other chronic pain G89.29 Active 60025880 Problem Side pain R10.9 Active 068309694 Problem Arthritis M19.90 Active 9101667 Problem Low back pain M54.5 Active 679080176 Problem Hydronephrosis with ureteral stricture, not elsewhere classified N13.1 Active 42767744 Problem Hearing loss, bilateral H91.93 Active 24400609 ALLERGIES No Known Allergies SOCIAL HISTORY No smoking Hx information available PLAN OF CARE VITAL SIGNS MEDICATIONS Medication Instructions Dosage Frequency Start Date End Date Duration Status Gabapentin 300 MG Orally Three times a day 1 capsule 8h Apr, Active RESULTS No Results PROCEDURES No Known procedures IMMUNIZATIONS No Known Immunizations
--- OUTSIDE RECORDS SUMMARY | 2016-08-08 12:03 | XMS REPORT ---
Author Author SINAN QUINONES [facility] eClinicalWorks Address Unknown Phone Unavailable Care Team Providers Care Leather Belt Shaper Name Role Phone SINAN QUINONES CP Unavailable Allergies No Known Allergies Problems Problem Type Condition Code Onset Dates Condition Status Problem Hearing loss, bilateral H91.93 Active Problem Arthritis M19.90 Active Problem Hydronephrosis with ureteral stricture, not elsewhere classified N13.1 Active Assessment Severe episode of recurrent major depressive disorder, without psychotic features F33.2 Active Problem Low back pain M54.5 Active Problem Severe episode of recurrent major depressive disorder, without psychotic features F33.2 Active Medications Medication Code System Code Instructions Start Date End Date Status Dosage Venlafaxine HCl [facility] [address]-87 75 MG Orally Twice a day November 07, 2015 1 tablet with food Results No Known Results Summary Purpose eClinicalWorks Submission
--- OUTSIDE RECORDS SUMMARY | 2016-08-08 12:03 | XMS REPORT ---
Author Author SINAN QUINONES [facility] Address [address] [place] [address] Care Team Providers Care Electric Meter Setter Name Role Phone SINAN QUINONES Unavailable PROBLEMS Type Condition ICD9-CM Code [id number] Code Onset Dates Condition Status SNOMED Code Problem Severe episode of recurrent major depressive disorder, without psychotic features F33.2 Active 85758975 Problem Other chronic pain G89.29 Active 61319160 Problem Side pain R10.9 Active 192448132 Problem Arthritis M19.90 Active 5756722 Problem Low back pain M54.5 Active 385586260 Problem Hydronephrosis with ureteral stricture, not elsewhere classified N13.1 Active 36997643 Problem Hearing loss, bilateral H91.93 Active 06367492 ALLERGIES No Known Allergies SOCIAL HISTORY No smoking Hx information available PLAN OF CARE VITAL SIGNS MEDICATIONS No Known Medications RESULTS No Results PROCEDURES No Known procedures IMMUNIZATIONS No Known Immunizations
--- OUTSIDE RECORDS SUMMARY | 2016-08-08 12:04 | XMS REPORT ---
Author SINAN Pinzon [facility] eClinicalWorks Address Unknown Phone Unavailable Care Team Providers Care Foam Rubber Curer Name Role Phone SINAN QUINONES CP Unavailable Allergies, Adverse Reactions, Alerts Substance Reaction Event Type Sudafed hives Drug Allergy Problems Problem Type Condition Code Onset Dates Condition Status Problem Arthritis M19.90 Active Problem Low back pain M54.5 Active Problem Hearing loss, bilateral H91.93 Active Assessment Edema, unspecified type R60.9 Active Problem Severe episode of recurrent major depressive disorder, without psychotic features F33.2 Active Assessment Dermatitis L30.9 Active Medications Medication Code System Code Instructions Start Date End Date Status Dosage HydrOXYzine HCl [facility] [address]-49 25 MG Orally every 8 hrs 1 tablet as needed Hydrocodone-Ibuprofen [facility] [address]-76 7.5-200 MG Orally every 6 hrs 1 tablet as needed Benadryl [facility] [address]-34 25 MG Orally every 6 hrs Feb 10, 2016 Feb 17, 2016 1 capsule as needed Venlafaxine HCl [facility] [address]-84 75 MG Orally Twice a day November 07, 2015 1 tablet with food ProAir HFA [facility] [address]-85 108 (90 Base) MCG/ACT Inhalation every 4 hrs 2 puffs as needed Seroquel [facility] [address]-62 100 MG Orally Once a day, at HS December 05, 2015 1 tablet Ibuprofen [facility] [address]-64 600 MG Orally Three times a day, pc October 09, 2015 1 tablet Procedures Procedure Coding System Code Date VENIPUNCT, ROUTINE* CPT-4 73112 Feb 17, 2016 Office Visit, Est Pt., Level 3 CPT-4 43273 Feb 17, 2016 LAB NOT BILLED BY [facility] CPT-4 NOBLL Feb 17, 2016 Vital Signs Date/Time: Feb 17, 2016 Cardiac Monitoring Heart Rate 78 bpm Weight 293.5 lbs Height 66 in BMI 47.37 Index Blood Pressure Diastolic 84 mmHg Blood Pressure Systolic 144 mmHg Results Name Result Date Reference Range Unit Abnormality Flag ROUTINE VENIPUNCTURE CMP ----Sodium, Serum 140 22877848 134-144 mmol/L ----BUN/Creatinine Ratio 13 47014148 8-20 ----Chloride, Serum 100 93775073 97-108 mmol/L ----Potassium, Serum 3.8 59748345 3.5-5.2 mmol/L ----Calcium, Serum 9.5 42930305 8.7-10.2 mg/dL ----Protein, Total, Serum 6.9 06415388 6.0-8.5 g/dL ----Carbon Dioxide, Total 23 30659018 18-29 mmol/L ----A/G Ratio 1.1 20160217 1.1-2.5 ----eGFR If NonAfricn Am 114 [id number] >59 mL/min/1.73 ----Bilirubin, Total 0.3 33983758 0.0-1.2 mg/dL ----eGFR If Africn Am 131 [id number] >59 mL/min/1.73 ----BUN 9 20160217 6-20 mg/dL ----Albumin, Serum 3.6 74089861 3.5-5.5 g/dL ----Globulin, Total 3.3 75826455 1.5-4.5 g/dL ----Creatinine, Serum 0.69 02902616 0.57-1.00 mg/dL ----ALT (SGPT) 11 20160217 0-32 IU/L ----Glucose, Serum 83 74652251 65-99 mg/dL ----Alkaline Phosphatase, S 111 20160217 39-117 IU/L ----AST (SGOT) 12 20160217 0-40 IU/L Summary Purpose eClinicalWorks Submission
--- OUTSIDE RECORDS SUMMARY | 2016-08-08 12:04 | XMS REPORT | Continuity of Care Document ---
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 Automated blood lymphocytes/100 leukocytes 12 % 12-44 Blood monocytes/100 leukocytes 9 % 0-12 Automated blood eosinophils/100 leukocytes 7 % 0-10 Automated blood basophils/100 leukocytes 0 % 0-10 Blood neutrophils automated count (number/volume) 7.8 10*3 1.8-7.8 Blood lymphocytes automated count (number/volume) 1.3 10*3 1.0-4.0 Blood monocytes automated count (number/volume) 1.0 10*3 0.0-1.0 Automated eosinophil count 0.7 10*3/uL 0.0-0.3 Automated blood basophil count (count/volume) 0.0 10*3/uL 0.0-0.1 PT panel in platelet poor plasma by coagulation assay - 08/01/16 00:15 Prothrombin time (PT) in platelet poor plasma by coagulation assay 14.3 s 12.2-14.7 INR in platelet poor plasma or blood by coagulation assay 1.1 0.8-1.4 Activated partial thromboplastin time (aPTT) in platelet poor plasma bycoagulation assay - 08/01/16 00:15 Activated partial thromboplastin time (aPTT) in platelet poor plasma bycoagulation assay 27 s 24-35 Serum or plasma choriogonadotropin ( test) detection - 08/01/16 00:15 Serum or plasma choriogonadotropin ( test) detection NEGATIVE NEGATIVE Blood lactic acid measurement (moles/volume) - 08/01/16 00:15 Blood lactic acid measurement (moles/volume) 2.20 mmol/L 0.50-2.00 Comprehensive metabolic panel - 08/01/16 00:15 Serum or plasma sodium measurement (moles/volume) 137 mmol/ L 135-145 Serum or plasma potassium measurement (moles/volume) 2.8 mmol/L 3.6-5.0 Serum or plasma chloride measurement (moles/volume) 102 mmol /L 98-107 Carbon dioxide 24 mmol/L 21-32 Serum or plasma anion gap determination (moles/volume) 11 mmol/L 5-14 Serum or plasma urea nitrogen measurement (mass/volume) 11 mg/dL 7-18 Serum or plasma creatinine measurement (mass/volume) 0.74 mg /dL 0.60-1.30 Serum or plasma urea nitrogen/creatinine mass ratio 15 NRG Serum or plasma creatinine measurement with calculation of estimated glomerular filtration rate > NRG Serum or plasma glucose measurement (mass/volume) 96 mg/dL 70-105 Serum or plasma calcium measurement (mass/volume) 9.1 mg/dL 8.5-10.1 Serum or plasma total bilirubin measurement (mass/volume) 0.4 mg/dL 0.1-1.0 Serum or plasma alkaline phosphatase measurement (enzymatic activity/volume) 99 U/L 40-136 Serum or plasma aspartate aminotransferase measurement (enzymatic activity/ volume) 12 U/L 5-34 Serum or plasma alanine aminotransferase measurement (enzymatic activity/volume ) 12 U/L 0-55 Serum or plasma protein measurement (mass/volume) 7.0 g/dL 6.4-8.2 Serum or plasma albumin measurement (mass/volume) 3.1 g/dL 3.2-4.5 Bacterial blood culture - 08/01/16 00:15 Bacterial blood culture NG NRG Influenza virus A and B antigen detection - 08/01/16 00:17 FLU RESULT NEGATIVE FOR INFLUENZA A AND B ANTIGENS BY IA NRG Complete urinalysis with reflex to culture - 08/01/16 01:44 Urine color determination YELLOW NRG Urine clarity determination SLIGHTLY CLOUDY NRG Urine pH measurement by test strip 6 5- 9 Specific gravity of urine by test strip 1.010 1.016-1.022 Urine protein assay by test strip, semi-quantitative 1+ NEGATIVE Urine glucose detection by automated test strip NEGATIVE NEGATIVE Erythrocytes detection in urine sediment by light microscopy 2+ NEGATIVE Urine ketones detection by automated test strip NEGATIVE NEGATIVE Urine nitrite detection by test strip NEGATIVE NEGATIVE Urine total bilirubin detection by test strip NEGATIVE NEGATIVE Urine urobilinogen measurement by automated test strip (mass/volume) NORMAL NORMAL Urine leukocyte esterase detection by dipstick 3+ NEGATIVE Automated urine sediment erythrocyte count by microscopy (number/high power field) [HPF] NRG Automated urine sediment leukocyte count by microscopy (number/high power field ) [HPF] NRG Bacteria detection in urine sediment by light microscopy MODERATE NRG Squamous epithelial cells detection in urine sediment by light microscopy 2-5 NRG Crystals detection in urine sediment by light microscopy PRESENT NRG Casts detection in urine sediment by light microscopy NONE NRG Mucus detection in urine sediment by light microscopy SMALL NRG Complete urinalysis with reflex to culture YES NRG Amorphous sediment detection in urine sediment by light microscopy FEW SARA URATES NRG Bacterial urine culture - 08/01/16 01:44 Bacterial urine culture FOOTNOTE NRG Serum or plasma lactate measurement (moles/volume) - 08/01/16 02:18 Serum or plasma lactate measurement (moles/volume) 1.45 mmol /L 0.50-2.00 Bacterial blood culture - 08/01/16 02:18 Bacterial blood culture NG NRG Serum or plasma choriogonadotropin ( test) detection - 08/06/16 08:50 Serum or plasma choriogonadotropin ( test) detection NEGATIVE NEGATIVE Blood CBC with ordered manual differential panel - 08/06/16 09:01 Blood leukocytes automated count (number/volume) 7.8 10*3/ uL 4.3-11.0 Blood erythrocytes automated count (number/volume) 2.86 10*6 /uL 4.35-5.85 Venous blood hemoglobin measurement (mass/volume) 6.0 g/dL 11.5-16.0 Blood hematocrit (volume fraction) 21 % 35-52 Automated erythrocyte mean corpuscular volume 73 [foz_us] 80-99 Automated erythrocyte mean corpuscular hemoglobin (mass per erythrocyte) 21 pg 25-34 Automated erythrocyte mean corpuscular hemoglobin concentration measurement ( mass/volume) 29 g/dL 32-36 Automated erythrocyte distribution width ratio 19.3 % 10.0-14.5 Automated blood platelet count (count/volume) 467 10*3/uL 130-400 Automated blood platelet mean volume measurement 9.5 [foz_us ] 7.4-10.4 Automated blood neutrophils/100 leukocytes 70 % 42-75 Automated blood lymphocytes/100 leukocytes 15 % 12-44 Blood monocytes/100 leukocytes 3 % NRG Automated blood eosinophils/100 leukocytes 8 % 0-10 Automated blood basophils/100 leukocytes 0 % 0-10 Blood neutrophils automated count (number/volume) 5.4 10*3 1.8-7.8 Blood lymphocytes automated count (number/volume) 1.2 10*3 1.0-4.0 Blood monocytes automated count (number/volume) 0.5 10*3 0.0-1.0 Automated eosinophil count 0.7 10*3/uL 0.0-0.3 Automated blood basophil count (count/volume) 0.0 10*3/uL 0.0-0.1 Manual blood segmented neutrophils/100 leukocytes 68 % NRG Blood band neutrophils/100 leukocytes 0 % NRG Manual blood lymphocytes/100 leukocytes 15 % NRG Manual eosinophils/100 leukocytes in nose 14 % NRG Manual blood basophils/100 leukocytes 0 % NRG Blood polychromasia detection by light microscopy SLIGHT NRG Blood anisocytosis detection by light microscopy MARKED NRG Blood hypochromia detection by light microscopy MARKED NRG Blood microcytes detection by light microscopy SLIGHT NRG Blood target cells detection by light microscopy SLIGHT NRG Comprehensive metabolic panel - 08/06/16 09:01 Serum or plasma sodium measurement (moles/volume) 139 mmol/ L 135-145 Serum or plasma potassium measurement (moles/volume) 3.1 mmol/L 3.6-5.0 Serum or plasma chloride measurement (moles/volume) 106 mmol /L 98-107 Carbon dioxide 21 mmol/L 21-32 Serum or plasma anion gap determination (moles/volume) 12 mmol/L 5-14 Serum or plasma urea nitrogen measurement (mass/volume) 9 mg /dL 7-18 Serum or plasma creatinine measurement (mass/volume) 0.77 mg /dL 0.60-1.30 Serum or plasma urea nitrogen/creatinine mass ratio 12 NRG Serum or plasma creatinine measurement with calculation of estimated glomerular filtration rate > NRG Serum or plasma glucose measurement (mass/volume) 102 mg/dL 70-105 Serum or plasma calcium measurement (mass/volume) 9.0 mg/dL 8.5-10.1 Serum or plasma total bilirubin measurement (mass/volume) 0.3 mg/dL 0.1-1.0 Serum or plasma alkaline phosphatase measurement (enzymatic activity/volume) 83 U/L 40-136 Serum or plasma aspartate aminotransferase measurement (enzymatic activity/ volume) 10 U/L 5-34 Serum or plasma alanine aminotransferase measurement (enzymatic activity/volume ) 10 U/L 0-55 Serum or plasma protein measurement (mass/volume) 6.5 g/dL 6.4-8.2 Serum or plasma albumin measurement (mass/volume) 2.9 g/dL 3.2-4.5 Erythrocyte sedimentation rate by westergren method - 08/06/16 09:01 Erythrocyte sedimentation rate by westergren method 72 mm 0-20 RED CELLS LEUKO REDUCED AS1 - 08/06/16 10:45 RED CELLS LEUKO REDUCED AS1 TRANSFUSED 1205 NRG Blood type T Indirect antibody screen panel - 08/06/16 10:45 ABO+Rh group AP NRG Transfusion band number [id number] NRG Blood group antibody screen NEGATIVE NRG Encounters ACCT No. Visit Date/Time Discharge Status Pt. Type Provider Facility Loc./Unit Complaint [id number] 04/11/2013 13:49:00 04/11/2013 23: 59:59 C[facility] Outpatient RENZO SMART DO
--- OUTSIDE RECORDS SUMMARY | 2016-08-08 12:05 | XMS REPORT ---
Author Author CARRIE HUANG Organization [employer] Address Unknown Phone Unavailable Care Team Providers Care Infrastructure Tech Name Role Phone CARRIE HUANG CP Unavailable Allergies, Adverse Reactions, Alerts Substance Reaction Event Type N.K.D.A. Info Not Available Non Drug Allergy Problems Problem Type Condition Code Onset Dates Condition Status Problem Low back pain M54.5 Active Problem Severe episode of recurrent major depressive disorder, without psychotic features F33.2 Active Problem Arthritis M19.90 Active Assessment Acute upper respiratory infection, unspecified J06.9 Active Assessment Sore throat J02.9 Active Assessment Other viral agents as the cause of diseases classified elsewhere B97.89 Active Medications Medication Code System Code Instructions Start Date End Date Status Dosage Ibuprofen [facility] [address]-86 600 MG Orally Three times a day, pc October 09, 2015 1 tablet Venlafaxine HCl [facility] [address]-72 75 MG Orally Twice a day November 07, 2015 1 tablet with food ProAir HFA [facility] [address]-86 108 (90 Base) MCG/ACT Inhalation every 4 hrs 2 puffs as needed Hydrocodone-Ibuprofen [facility] [address]-50 7.5-200 MG Orally every 6 hrs 1 tablet as needed HydrOXYzine HCl [facility] [address]-98 25 MG Orally every 8 hrs 1 tablet as needed Procedures Procedure Coding System Code Date Office Visit, Est Pt., Level 3 CPT-4 16268 November 28, 2015 STREP A ASSAY W/OPTIC CPT-4 62243 November 28, 2015 Vital Signs Date/Time: November 28, 2015 Cardiac Monitoring Heart Rate 84 bpm Weight 289.2 lbs Height 66 in Blood Pressure Diastolic 74 mmHg Blood Pressure Systolic 118 mmHg Results No Known Results Summary Purpose [employer] Submission
--- OUTSIDE RECORDS SUMMARY | 2016-08-08 12:05 | XMS REPORT ---
Author Author BRADLY VELEZ Organization [employer] Address Unknown Phone Unavailable Care Team Providers Care Instrument Repair Technician Name Role Phone BRADLY VELEZ Unavailable Allergies No Known Allergies Problems Problem Type Condition Code Onset Dates Condition Status Assessment Scabies exposure Z20.89 Active Problem Need for prophylactic vaccination and inoculation, Influenza V04.81 Active Medications Medication Code System Code Instructions Start Date End Date Status Dosage Elimite [facility] [address]-03 5 % Externally once September 12, 2015 September 14, 2015 apply to entire body from neck down, leave on x 8-10 hours, then wash off Results No Known Results Summary Purpose [employer] Submission
--- OUTSIDE RECORDS SUMMARY | 2016-08-08 12:05 | XMS REPORT ---
Author Author SINAN QUINONES [facility] [place] [employer] Address Unknown Phone Unavailable Care Team Providers Care Woven Label Designer Name Role Phone SINAN QUINONES CP Unavailable Allergies No Known Allergies Problems Problem Type Condition Code Onset Dates Condition Status Problem Arthritis M19.90 Active Problem Low back pain M54.5 Active Problem Hearing loss, bilateral H91.93 Active Problem Severe episode of recurrent major depressive disorder, without psychotic features F33.2 Active Medications Medication Code System Code Instructions Start Date End Date Status Dosage Hydrocodone-Ibuprofen [facility] [address]-91 7.5-200 MG Orally every 6 hrs 1 tablet as needed Results No Known Results Summary Purpose [employer] Submission
--- OUTSIDE RECORDS SUMMARY | 2016-08-08 12:05 | XMS REPORT ---
Author Author SINAN QUINONES [facility] [employer] Address Unknown Phone Unavailable Care Team Providers Care Whale Fisherman Name Role Phone SINAN QUINONES CP Unavailable Allergies, Adverse Reactions, Alerts Substance Reaction Event Type N.K.D.A. Info Not Available Non Drug Allergy Problems Problem Type Condition Code Onset Dates Condition Status Problem Low back pain M54.5 Active Problem Severe episode of recurrent major depressive disorder, without psychotic features F33.2 Active Problem Arthritis M19.90 Active Assessment Severe episode of recurrent major depressive disorder, without psychotic features F33.2 Active Assessment Upper respiratory tract infection, unspecified type J06.9 Active Medications Medication Code System Code Instructions Start Date End Date Status Dosage HydrOXYzine HCl [facility] [address]-30 25 MG Orally every 8 hrs 1 tablet as needed ProAir HFA [facility] [address]-53 108 (90 Base) MCG/ACT Inhalation every 4 hrs 2 puffs as needed Seroquel [facility] [address]-85 100 MG Orally Once a day, at HS December 05, 2015 1 tablet Hydrocodone-Ibuprofen [facility] [address]-04 7.5-200 MG Orally every 6 hrs 1 tablet as needed Ibuprofen [facility] [address]-29 600 MG Orally Three times a day, pc October 09, 2015 1 tablet Venlafaxine HCl [facility] [address]-33 75 MG Orally Twice a day November 07, 2015 1 tablet with food Procedures Procedure Coding System Code Date Office Visit, Est Pt., Level 3 CPT-4 83610 December 05, 2015 Vital Signs Date/Time: December 05, 2015 Cardiac Monitoring Heart Rate 77 bpm Weight 289.0 lbs Height 66 in Blood Pressure Diastolic 90 mmHg Blood Pressure Systolic 126 mmHg Results No Known Results Summary Purpose [employer]Works Submission
--- OUTSIDE RECORDS SUMMARY | 2016-08-08 12:05 | XMS REPORT ---
Author SINAN Pinzon [facility] e[employer]Works Address Unknown Phone Unavailable Care Team Providers Care Gasfitter Name Role Phone SINAN QUINONES CP Unavailable Allergies, Adverse Reactions, Alerts Substance Reaction Event Type Sudafed hives Drug Allergy Problems Problem Type Condition Code Onset Dates Condition Status Problem Hearing loss, bilateral H91.93 Active Problem Arthritis M19.90 Active Problem Hydronephrosis with ureteral stricture, not elsewhere classified N13.1 Active Assessment Urinary tract infection without hematuria, site unspecified N39.0 Active Assessment Hydronephrosis with ureteral stricture, not elsewhere classified N13.1 Active Problem Low back pain M54.5 Active Problem Severe episode of recurrent major depressive disorder, without psychotic features F33.2 Active Medications Medication Code System Code Instructions Start Date End Date Status Dosage Zofran ODT [facility] [address]-87 8 MG Orally q4h prn nausea Mar 30, 2016 1 Keflex [facility] [address]-64 500 MG Orally 3 times a day Mar 30, 2016 Apr 06, 2016 1 capsule Seroquel [facility] [address]-76 100 MG Orally Once a day, at HS December 05, 2015 1 tablet Ibuprofen [facility] [address]-19 600 MG Orally Three times a day, pc October 09, 2015 1 tablet HydrOXYzine HCl [facility] [address]-87 25 MG Orally every 8 hrs 1 tablet as needed Venlafaxine HCl [facility] [address]-80 75 MG Orally Twice a day November 07, 2015 1 tablet with food ProAir HFA [facility] [address]-49 108 (90 Base) MCG/ACT Inhalation every 4 hrs 2 puffs as needed Hydrocodone-Ibuprofen [facility] [address]-02 7.5-200 MG Orally every 6 hrs 1 tablet as needed Procedures Procedure Coding System Code Date THER/PROPH/DIAG INJ, SC/IM CPT-4 39123 Mar 30, 2016 Office Visit, Est Pt., Level 3 CPT-4 80920 Mar 30, 2016 DANIELLE 1 GM (IM) CPT-4 J0696 Mar 30, 2016 Vital Signs Date/Time: Mar 30, 2016 Cardiac Monitoring Heart Rate 80 bpm Weight 304.4 lbs Height 66 in BMI 49.13 Index Blood Pressure Diastolic 86 mmHg Blood Pressure Systolic 140 mmHg Results No Known Results Summary Purpose eClinicalWorks Submission
--- OUTSIDE RECORDS SUMMARY | 2016-08-08 12:05 | XMS REPORT ---
Author Author SINAN QUINONES [facility] Address [address] [place] [address] Care Team Providers Care Survey Operations Director Name Role Phone SINAN QUINONES Unavailable PROBLEMS Type Condition ICD9-CM Code [id number] Code Onset Dates Condition Status SNOMED Code Problem Severe episode of recurrent major depressive disorder, without psychotic features F33.2 Active 79914912 Assessment Side pain R10.9 Apr, Active 308858354 Problem Other chronic pain G89.29 Active 92993160 Problem Side pain R10.9 Active 051165378 Problem Arthritis M19.90 Active 5344321 Problem Low back pain M54.5 Active 917938043 Problem Hydronephrosis with ureteral stricture, not elsewhere classified N13.1 Active 85304442 Problem Hearing loss, bilateral H91.93 Active 23800443 ALLERGIES Substance Reaction Event Type Date Status Sudafed hives Drug Allergy Apr, Active SOCIAL HISTORY No smoking Hx information available PLAN OF CARE VITAL SIGNS Height 66 in 2016-04-16 Weight 305 lbs 2016-04-16 Heart Rate 78 bpm 2016-04-16 Respiratory Rate 22 2016-04-16 BMI 49.22 kg/m2 2016-04-16 Blood pressure systolic 138 mmHg 2016-04-16 Blood pressure diastolic 78 mmHg 2016-04-16 MEDICATIONS Medication Instructions Dosage Frequency Start Date End Date Duration Status Pyridium 200 MG Orally Three times a day 1 tablet after meals 8h Active Venlafaxine HCl 75 MG Orally Twice a day 1 tablet with food 12h 24 Oct, 2015 Active Ciprofloxacin HCl 500 MG Orally Twice a day 1 tablet 12h Active HydrOXYzine HCl 25 MG Orally every 8 hrs 1 tablet as needed 8h Active Hydrocodone-Ibuprofen 7.5-200 MG Orally every 6 hrs 1 tablet as needed 6h Active Gabapentin 300 MG Orally Three times a day 1 capsule 8h Apr, Active Zofran ODT 8 MG Orally q4h prn nausea 1 Mar, Active Seroquel 100 MG Orally Once a day, at HS 1 tablet Active ProAir HFA 108 (90 Base) MCG/ACT Inhalation every 4 hrs 2 puffs as needed 4h Active Ibuprofen 600 MG Orally Three times a day, pc 1 tablet September, Active RESULTS No Results PROCEDURES Procedure Date Ordered Related Diagnosis Body Site LAB NOT BILLED BY [facility] Apr 16, 2016 VENIPUNCT, ROUTINE* Apr 16, 2016 Office Visit, Est Pt., Level 3 Apr 16, 2016 IMMUNIZATIONS No Known Immunizations
--- OUTSIDE RECORDS SUMMARY | 2016-08-08 12:05 | XMS REPORT ---
Author Author SINAN QUINONES [facility] Address [address] [place] [address] Care Team Providers Care Industrial Aerial Installer Name Role Phone SINAN QUINONES Unavailable PROBLEMS Type Condition ICD9-CM Code [id number] Code Onset Dates Condition Status SNOMED Code Problem Severe episode of recurrent major depressive disorder, without psychotic features F33.2 Active 25185670 Assessment Hydronephrosis with ureteral stricture, not elsewhere classified N13.1 Apr, Active 12934434 Problem Other chronic pain G89.29 Active 75347699 Problem Side pain R10.9 Active 786311897 Problem Arthritis M19.90 Active 3089414 Problem Low back pain M54.5 Active 487911853 Problem Hydronephrosis with ureteral stricture, not elsewhere classified N13.1 Active 75160667 Problem Hearing loss, bilateral H91.93 Active 37371619 ALLERGIES No Known Allergies SOCIAL HISTORY No smoking Hx information available PLAN OF CARE VITAL SIGNS MEDICATIONS No Known Medications RESULTS No Results PROCEDURES No Known procedures IMMUNIZATIONS No Known Immunizations
--- OUTSIDE RECORDS SUMMARY | 2016-08-08 12:06 | XMS REPORT ---
Author BANDAR Maloney Organization [employer] Address Unknown Phone Unavailable Care Team Providers Care Parts Puller Name Role Phone BANDAR SCHMIDT CP Unavailable Allergies No Known Allergies Problems Problem Type Condition Code Onset Dates Condition Status Problem Arthritis M19.90 Active Problem Low back pain M54.5 Active Problem Hearing loss, bilateral H91.93 Active Problem Severe episode of recurrent major depressive disorder, without psychotic features F33.2 Active Medications No Known Medications Results No Known Results Summary Purpose eClinicalWorks Submission
--- OUTSIDE RECORDS SUMMARY | 2016-08-08 12:06 | XMS REPORT ---
Author Author SINAN QUINONES [facility] eClinicalWorks Address Unknown Phone Unavailable Care Team Providers Care Manager Trainee Name Role Phone SINAN QUINONES CP Unavailable Allergies No Known Allergies Problems Problem Type Condition Code Onset Dates Condition Status Problem Low back pain M54.5 Active Problem Severe episode of recurrent major depressive disorder, without psychotic features F33.2 Active Problem Arthritis M19.90 Active Assessment Low back pain M54.5 Active Medications Medication Code System Code Instructions Start Date End Date Status Dosage Hydrocodone-Ibuprofen [facility] [address]-54 7.5-200 MG Orally every 6 hrs 1 tablet as needed Results No Known Results Summary Purpose eClinicalWorks Submission
--- OUTSIDE RECORDS SUMMARY | 2016-08-08 12:06 | XMS REPORT ---
Author Author ALYSSA BAILEY [facility] eClinicalWorks Address Unknown Phone Unavailable Care Team Providers Care Business Intelligence Engineer Name Role Phone ALYSSA BAILEY CP Unavailable Allergies, Adverse Reactions, Alerts Substance Reaction Event Type Sudafed Info Not Available Drug Allergy Problems Problem Type Condition Code Onset Dates Condition Status Problem Arthritis M19.90 Active Problem Low back pain M54.5 Active Problem Hearing loss, bilateral H91.93 Active Problem Severe episode of recurrent major depressive disorder, without psychotic features F33.2 Active Assessment Scabies B86 Active Medications Medication Code System Code Instructions Start Date End Date Status Dosage Benadryl [facility] [address]-27 25 MG Orally every 6 hrs Feb 10, 2016 Feb 17, 2016 1 capsule as needed HydrOXYzine HCl [facility] [address]-94 25 MG Orally every 8 hrs 1 tablet as needed Venlafaxine HCl [facility] [address]-61 75 MG Orally Twice a day November 07, 2015 1 tablet with food Hydrocodone-Ibuprofen [facility] [address]-04 7.5-200 MG Orally every 6 hrs 1 tablet as needed Ibuprofen [facility] [address]-70 600 MG Orally Three times a day, pc October 09, 2015 1 tablet ProAir HFA [facility] [address]-54 108 (90 Base) MCG/ACT Inhalation every 4 hrs 2 puffs as needed Seroquel [facility] [address]-07 100 MG Orally Once a day, at HS December 05, 2015 1 tablet Permethrin [facility] [address]-12 5 % Externally Once a day Feb 10, 2016 Feb 11, 2016 1 application to affected area Procedures Procedure Coding System Code Date Office Visit, Est Pt., Level 3 CPT-4 21373 Feb 10, 2016 Vital Signs Date/Time: Feb 10, 2016 Blood Pressure Systolic 132 mmHg Cardiac Monitoring Heart Rate 86 bpm Height 66 in Blood Pressure Diastolic 82 mmHg Results No Known Results Summary Purpose eClinicalWorks Submission
--- OUTSIDE RECORDS SUMMARY | 2016-08-08 12:06 | XMS REPORT ---
Author Author SINAN QUINONES [facility] eClinicalWorks Address Unknown Phone Unavailable Care Team Providers Care Validation Technician Name Role Phone SINAN QUINONES CP Unavailable Allergies No Known Allergies Problems Problem Type Condition Code Onset Dates Condition Status Problem Hearing loss, bilateral H91.93 Active Problem Arthritis M19.90 Active Problem Hydronephrosis with ureteral stricture, not elsewhere classified N13.1 Active Assessment Low back pain M54.5 Active Problem Low back pain M54.5 Active Problem Severe episode of recurrent major depressive disorder, without psychotic features F33.2 Active Medications Medication Code System Code Instructions Start Date End Date Status Dosage Hydrocodone-Ibuprofen [facility] [address]-80 7.5-200 MG Orally every 6 hrs 1 tablet as needed Results No Known Results Summary Purpose eClinicalWorks Submission
--- NOTE | 2016-08-12 09:31 | PROCEDURE REPORT ---
PROCEDURE PHYSICIAN: TOO JACKSON DATE OF PROCEDURE: 08/06/2016 EGD was performed for evaluation of left upper quadrant abdominal pain and iron deficiency anemia. The patient was placed in the left lateral decubitus position. Because of his significant developmental disability anesthesia with Diprivan administration was requested. The endoscope was inserted in the oral cavity and under direct visualization, the esophagus was intubated. The scope was passed down the esophagus to the stomach, and second portion of duodenum. Careful inspection was made as the endoscope was withdrawn. The patient tolerated the procedure well. FINDINGS: The posterior hypopharynx, arytenoid aperture and true and false vocal folds were unremarkable. The proximal mid and distal esophagus were unremarkable. There was no evidence for erosive esophagitis, rings, webs, strictures or Montanez's change. The stomach was unremarkable except for the fact that was loss of the usual rugal fold pattern suggesting the possibility of atrophic gastritis. No potential bleeding sites were identified. A biopsy was obtained and submitted for histopathology. There was no evidence for increased friability. The pylorus, the pyloric channel, the duodenal bulb, and second portion duodenum were unremarkable with no evidence for peptic ulcer disease. There is the usual villous pattern noted. ASSESSMENT: Except for loss of the usual rugal fold pattern in the stomach, this is an otherwise normal EGD. No potential bleeding sites were identified. Biopsy was obtained and submitted for histopathology. The patient was noted to have severe infestation of predominately dark-colored mites involving her hair. Lotion was called out and her sister was advised to set off a bug bomb in her room, wash bedding in hot water and then apply lotion tonight. We did obtain a CBC and a CMP and sed rate. Interestingly manual count did reveal 14% eosinophils, which may be secondary to her parasite infestation. Her hemoglobin was 6 with an MCV of 73. White count was 7.8 thousand. Sed rate is still significantly elevated at 72 and other than her eosinophilia, white count differential was unremarkable. We did give her 2 units of packed cells. Her chemistry panel was unremarkable except for mild hypokalemia with potassium of 3.1 and a slightly low albumin at 2.9. CT scan of the abdomen was repeated and there have been progression of hydronephrosis involving the proximal ureter on the left. We advised referral back to Dr. Julian for consideration of a functional obstruction, consideration for repeat ureteroscopy and consideration for stent placement. The CT scan also revealed questionable soft tissue prominence in the cecum so we will need to attempt colon lavage and return for colonoscopy which we will set up in the next 1 to 2 weeks. 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
== END 2016-08-06 15:40 | disposition home or self-care (01) ==
LOC: DELPENDDIS → ENDO 08:04
PROVIDERS: ATTEND Internal Medicine
DX: D50.9 Iron deficiency anemia, unspecified (principal); R10.12 Left upper quadrant pain; E87.6 Hypokalemia; N13.30 Unspecified hydronephrosis; B88.0 Other acariasis; Z79.899 Other long term (current) drug therapy
CPT/HCPCS: 36415; 36430; 74178; 80053; 84703; 85007; 85027; 85652; 86850; 86900; 86901; 86920; 88305

== ENCOUNTER 2016-08-19 21:39 | Emergency (ER) | payer MEDICAID ==
[~2016-08-19] VITALS: Ht 170.2 cm; Wt 125.6 kg
[2016-08-19] MEDS ORDERED: KETOROLAC 60 MG/2 ML VIAL IM ONE (23:30)
[2016-08-20 01:24] LABS: BASOPHILS % (AUTO) 0 % (0-10); EOSINOPHILS # (AUTO) 0.9 10^3/uL (0.0-0.3); EOSINOPHILS % (AUTO) 9 % (0-10); LYMPHOCYTES # (AUTO) 1.5 X 10^3 (1.0-4.0); LYMPHOCYTES % (AUTO) 15 % (12-44); MEAN CORPUSCULAR HEMOGLOBIN 22 PG (25-34); MEAN CORPUSCULAR HGB CONC 29 G/DL (32-36); MEAN CORPUSCULAR VOLUME 74 FL (80-99); MEAN PLATELET VOLUME 9.6 FL (7.4-10.4); MONOCYTES # (AUTO) 0.9 X 10^3 (0.0-1.0); MONOCYTES % (AUTO) 9 % (0-12); NEUTROPHILS # (AUTO) 6.7 X 10^3 (1.8-7.8); NEUTROPHILS % (AUTO) 67 % (42-75); PLATELET COUNT 522 10^3/uL (130-400); RED BLOOD COUNT 3.13 10^6/uL (4.35-5.85); RED CELL DISTRIBUTION WIDTH 21.3 % (10.0-14.5); WHITE BLOOD COUNT 10.1 10^3/uL (4.3-11.0)
[2016-08-20 01:41] LABS: ANION GAP 10 MMOL/L (5-14); BLOOD UREA NITROGEN 8 MG/DL (7-18); BUN/CREATININE RATIO 11; CARBON DIOXIDE 23 MMOL/L (21-32); CHLORIDE 103 MMOL/L (98-107); CREATININE SERUM 0.75 MG/DL (0.60-1.30); GFR ESTIMATED > 60; GLUCOSE 100 MG/DL (70-105); MAGNESIUM 1.9 MG/DL (1.8-2.4); SODIUM 136 MMOL/L (135-145)
[2016-08-20] MEDS ORDERED: KCL 10 MEQ TAB (MICRO K) PO ONE (02:00)
[2016-08-20] MEDS ORDERED: FERR-65 PO (02:02)
[2016-08-20] MEDS ORDERED: PERM60CR4 TP (02:06)
[2016-08-20] MEDS ORDERED: PERM59LI4 TP (02:06)
--- NOTE | 2016-08-20 02:07 | ED Chest Pain ---
General Chief Complaint: Chest Wall/Rib Pain Stated Complaint: L SIDE AND CHEST PAIN/SOB Nursing Triage Note: Pt reports L sided chest pain and L arm pain worse when taking a deep breath x1.5 hours. Pt also reports cough that started yesterday. Nursing Sepsis Screen: No Definite Risk Source: patient Exam Limitations: no limitations History of Present Illness Time seen by provider: 23:16 Initial Comments This 36-year-old woman presents to the emergency room complaining of left-sided chest pain that is worse with cough. She has had cough since yesterday. There is no tachycardia or hypoxia. She also complains of lower extremity cramping for several days. Review of her chart notes recent ER visit in which severe anemia was identified. She was worked up with endoscopy on an outpatient basis. She was also given a transfusion. Allergies and Home Medications Allergies Coded Allergies: pseudoephedrine (Unverified Allergy, Unknown, 01/20/16) Home Medications Ferrous Sulfate 325 Mg Tablet, 325 MG PO BID, #60 Prescribed by: SANDY DICKERSON on 08/20/16 0202 Hydrocodone/Ibuprofen 1 Each Tablet, 1 EACH PO Q6H PRN for PAIN, (Reported) Permethrin 60 Gm Cream..g., 60 GM TP ONCE, #1 Ref 1 Cover skin head to toe before bed and wash off in the morning. Repeat in 1 to 2 weeks if needed. Prescribed by: SANDY DICKERSON on 08/20/16 0206 Permethrin 60 Ml Liquid, 60 ML TP ONCE, #1 Used per package instructions. Prescribed by: SANDY DICKERSON on 08/20/16 0206 Potassium Chloride 10 Meq Tablet.er, 10 MEQ PO DAILY, #30 (Reported) Venlafaxine HCl 75 Mg Tab, 75 MG PO BID, (Reported) Review of Systems Constitutional: no symptoms reported EENTM: No Symptoms Reported Respiratory: See HPI Cardiovascular: No Symptoms Reported Gastrointestinal: No Symptoms Reported Genitourinary: No Symptoms Reported Musculoskeletal: see HPI Skin: no symptoms reported Psychiatric/Neurological: No Symptoms Reported Endocrine: No Symptoms Reported Hematologic/Lymphatic: Anemia Past Eefobpj-Nujvxs-Givbey Hx Patient Social History Alcohol Use: Denies Use Recreational Drug Use: No Smoking Status: Current Everyday Smoker Type Used: Cigarettes Recent Foreign Travel: No Contact w/Someone Who Travel: No Recent Infectious Disease Expo: No Recent Hopitalizations: No Seasonal Allergies Seasonal Allergies: No Surgeries HX Surgeries: Yes (kidney surgery at age 4, R knee scope, cystoscopy) Surgeries: Gallbladder, Orthopedic, Renal Respiratory Hx Respiratory Disorders: Yes Respiratory Disorders: Asthma Cardiovascular Hx Cardiac Disorders: No Neurological Hx Neurological Disorders: No Reproductive System Hx Reproductive Disorders: No Sexually Transmitted Disease: No Genitourinary Hx Genitourinary Disorders: Yes (kidney surgery at age 4, left ureteral obstruction) Gastrointestinal Hx Gastrointestinal Disorders: No Musculoskeletal Hx Musculoskeletal Disorders: No Endocrine Hx Endocrine Disorders: Yes (OBESITY) HEENT HX ENT Disorders: Yes Hearing Impairment: Hard of Hearing, Deaf Cancer Hx Cancer: No Psychosocial Hx Psychiatric Problems: Yes Behavioral Health Disorders: Anxiety, Bipolar, Depression Integumentary HX Skin/Integumentary Disorder: Yes Skin/Integumentary Disorders: Psoriasis Blood Transfusions Hx Blood Disorders: Yes (ANEMIA) Hx of Blood Transfusion yes Family Medical History Significant Family History: No Pertinent Family Hx Physical Exam Vital Signs Vital Sign - Last 12Hours 08/19/16 22:42 Temp 98.9 Pulse 87 Resp 18 B/P (MAP) 117/58 Pulse Ox 100 O2 Delivery Room Air Capillary Refill : Less Than 3 Seconds General Appearance: WD/WN, Mild Distress, Obese HEENT: PERRL/EOMI, Pharynx Normal, Other (Patient appears to have nits in her hair) Neck: Normal Inspection Respiratory: Lungs Clear, Normal Breath Sounds, No Accessory Muscle Use, No Respiratory Distress, Other (Eft upper chest tender to palpation) Cardiovascular: Regular Rate, Rhythm, No Edema, No Murmur Gastrointestinal: Non Tender, Soft Extremity: Swelling (Mild edema equal bilaterally), Other (Bilateral lower extremity muscle tenderness from cramping) Neurologic/Psychiatric: Alert, Oriented x3, No Motor/Sensory Deficits, Normal Mood/Affect, Other (Hard of hearing) Skin: Warm/Dry, Rash (Pruritic rash suggestive of scabies) Progress/Results/Core Measures Results/Orders Lab Results Laboratory Tests Test 08/20/16 01:17 Range/Units White Blood Count 10.1 4.3-11.0 10^3/uL Red Blood Count 3.13 L 4.35-5.85 10^6/uL Hemoglobin 6.8 *L 11.5-16.0 G/DL Hematocrit 23 L 35-52 % Mean Corpuscular Volume 74 L 80-99 FL Mean Corpuscular Hemoglobin 22 L 25-34 PG Mean Corpuscular Hemoglobin Concent 29 L 32-36 G/DL Red Cell Distribution Width 21.3 H 10.0-14.5 % Platelet Count 522 H 130-400 10^3/uL Mean Platelet Volume 9.6 7.4-10.4 FL Neutrophils (%) (Auto) 67 42-75 % Lymphocytes (%) (Auto) 15 12-44 % Monocytes (%) (Auto) 9 0-12 % Eosinophils (%) (Auto) 9 0-10 % Basophils (%) (Auto) 0 0-10 % Neutrophils # (Auto) 6.7 1.8-7.8 X 10^3 Lymphocytes # (Auto) 1.5 1.0-4.0 X 10^3 Monocytes # (Auto) 0.9 0.0-1.0 X 10^3 Eosinophils # (Auto) 0.9 H 0.0-0.3 10^3/uL Basophils # (Auto) 0.0 0.0-0.1 10^3/uL Sodium Level 136 135-145 MMOL/L Potassium Level 3.0 L 3.6-5.0 MMOL/L Chloride Level 103 98-107 MMOL/L Carbon Dioxide Level 23 21-32 MMOL/L Anion Gap 10 5-14 MMOL/L Blood Urea Nitrogen 8 7-18 MG/DL Creatinine 0.75 0.60-1.30 MG/DL Estimat Glomerular Filtration Rate > 60 BUN/Creatinine Ratio 11 Glucose Level 100 70-105 MG/DL Calcium Level 9.0 8.5-10.1 MG/DL Magnesium Level 1.9 1.8-2.4 MG/DL My Orders Orders - SANDY LARA MD Ketorolac Injection (Toradol Injection) (08/19/16 23:30) Ekg Tracing (08/19/16 23:23) Chest Pa/Lat (2 View) (08/19/16 23:24) Saline Lock/Iv-Start (08/20/16 01:09) Basic Metabolic Panel (08/20/16 01:09) Cbc With Automated Diff (08/20/16 01:09) Magnesium (08/20/16 01:09) Potassium Chloride (Tablet) (Klor Con Ta (08/20/16 02:00) Medications Given in ED Vital Signs/I&O Vital Sign - Last 12Hours 08/19/16 08/20/16 22:42 02:37 Temp 98.9 98.9 Pulse 87 76 Resp 18 18 B/P (MAP) 117/58 Pulse Ox 100 100 O2 Delivery Room Air Blood Pressure Mean: 77 Progress Note : Progress Note Patient's chest pain seems to be musculoskeletal in nature. Toradol was administered which improved her pain. She was found to be severely anemic although hemoglobin was higher than on her prior CBC. Cramping is likely secondary to anemia and hypokalemia. Potassium was replaced orally in the ER. Patient and family were strongly advised to follow up on the anemia and electrolyte disturbances. ECG Initial ECG Impression Date: Aug 19, 2016 Initial ECG Impression Time: 22:49 Initial ECG Rate: 80 Initial ECG Rhythm: Normal Sinus Initial ECG Intervals: Normal Initial ECG Impression: Normal Comment Normal sinus rhythm with no ST elevation or depression. No abnormal intervals or axis deviation. Diagnostic Imaging Diagonstic Imaging: Xray Plain Films/CT/US/NM/MRI: chest Comments Chest x-ray viewed by me. Report not yet available. No acute abnormalities appreciated. Departure Impression Impression: Primary Impression: Chest wall pain Additional Impressions: Iron deficiency anemia Qualified Codes: D50.9 - Iron deficiency anemia, unspecified Leg cramps Qualified Codes: R25.2 - Cramp and spasm Hypokalemia Rash Head lice Scabies Disposition: 01 HOME, SELF-CARE Condition: Improved Departure-Patient Inst. Decision time for Depature: 02:02 Referrals: SINAN QUINONES MD (PCP/Family) Primary Care Physician Patient Instructions: Chest Pain That Is Not Caused by the Heart (DC), Hypokalemia Add. Discharge Instructions: Take Tylenol up to 1000 mg every 6 hours as needed for pain. Add ibuprofen sparingly up to 600 mg 3 times daily. Start iron replacement as prescribed and follow-up with your primary care provider as soon as possible to further evaluate your anemia. Please take a multivitamin daily as well as this will help your body absorb the iron. Follow-up with your primary care provider regarding your low potassium as well. All discharge instructions reviewed with patient and/or family. Voiced understanding. Scripts Permethrin (Nix) 60 Ml Liquid 60 ML TP ONCE, #1 EA Used per package instructions. Prov: SANDY LARA MD 08/20/16 Permethrin (Permethrin) 60 Gm Cream..g. 60 GM TP ONCE, #1 TUBE 1 Refill Cover skin head to toe before bed and wash off in the morning. Repeat in 1 to 2 weeks if needed. Prov: SANDY LARA MD 08/20/16 Ferrous Sulfate (Feosol) 325 Mg Tablet 325 MG PO BID, #60 TAB Prov: SANDY LARA MD 08/20/16 Copy Copies To 1: SINAN QUINONES MD, JOSHUA T MD Aug 20, 2016 02:07
[2016-08-20 02:37] VITALS: BP 111/99
--- NOTE | 2016-08-20 07:36 | Diagnostic Imaging Report ---
PA and lateral views of the chest. INDICATION: Chest pain. FINDINGS: There is slight prominence of the bronchovascular markings which could be related to less than optimal inspiration. There are no definite focal infiltrates. There is no effusion or pneumothorax. The heart size is borderline enlarged. The mediastinum and jose appear unremarkable. IMPRESSION: Borderline cardiomegaly. Prominent interstitial markings are probably exaggerated by the incomplete expansion of the lungs. Consider possibility of vascular congestion. Dictated by: Dictated on workstation # [id number]
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
== END 2016-08-20 02:37 | disposition home or self-care (01) ==
LOC: EDUNIT# 21:39 → ER 21:41
DX: R07.89 Other chest pain (principal); D50.9 Iron deficiency anemia, unspecified; R25.2 Cramp and spasm; E86.9 Volume depletion, unspecified; R21 Rash and other nonspecific skin eruption; E66.9 Obesity, unspecified; B85.0 Pediculosis due to Pediculus humanus capitis; F17.210 Nicotine dependence, cigarettes, uncomplicated
CPT/HCPCS: 36415; 71020; 80048; 83735; 85025; 93005; 96372

== ENCOUNTER → 2016-08-24 | Outpatient (CLI) | payer MEDICAID ==
[~2016-08-24] MED LIST changes: +CATHETER FLUSH 10 ML SYR IV PRN; +FERR-65 PO; +FERR-74 PO; +FUROSEMIDE 40 MG/4 ML INJ (LASIX) ONE; +PANT40TA3 PO; +PERM59LI4 TP; +PERM60CR4 TP; +QUET100T69 PO; +SULF1TAB35 PO
--- NOTE | 2016-08-24 13:25 | Diagnostic Imaging Report ---
EXAMINATION: Renal scan with Lasix INDICATION: Left hydronephrosis. TECHNIQUE: After the intravenous administration of 4.8 mCi of Tc 99m MAG3, imaging over the abdomen and pelvis was obtained. Multiple phases include the flow images, renal the junction with the split function measurements obtained. This was followed by administration of Lasix 40 mg is administered intravenously, with post-Lasix the images are performed. The area of interest for measurements of radiotracer uptake over the renal collecting system with the assessment of a excretion performed. FINDINGS: There is asymmetric flow slightly decreased to the left kidney. The split renal function is the percent on the right is 67 % and is 33 % on the left. The poor excretion and clearance of renal collecting system and the left kidney is seen prior to Lasix administration. This has moderately improved after Lasix administration. IMPRESSION: There is decreased split function, flow, and excretion in the left kidney with improvement after Lasix administration suggestive of probable functional obstruction component. Prior CT scan demonstrated transition to nondilated segment of the ureter on the left side distally with no stone. Differential possibilities include functional abnormality versus partial obstruction related to a stricture or underlying ureteric lesion. Correlation with direct visualization is recommended. Dictated by: Dictated on workstation # [id number]
== END ==
LOC: CARD 09:04
PROVIDERS: ATTEND Urology
DX: N36.8 Other specified disorders of urethra (principal)
CPT/HCPCS: 78708

== ENCOUNTER → 2016-08-24 | Outpatient (CLI) | payer MEDICAID ==
[~2016-08-24] MED LIST changes: -CATHETER FLUSH 10 ML SYR IV PRN; -FUROSEMIDE 40 MG/4 ML INJ (LASIX) ONE
--- NOTE | 2016-08-24 19:48 | Diagnostic Imaging Report ---
INDICATION: Left leg pain. Left leg venous Doppler study was performed in the routine fashion with color flow Doppler and waveform analysis. FINDINGS: The left common femoral vein, superficial femoral vein, popliteal vein and visualized portion of the posterior tibial vein show normal compressibility and venous flow patterns. There is normal augmentation. IMPRESSION: No evidence of deep vein thrombosis of the major veins of the left leg. Dictated by: Dictated on workstation # [id number]
== END ==
LOC: RAD 18:22
PROVIDERS: ATTEND Nurse Practitioner Family
DX: M79.662 Pain in left lower leg (principal)

== ENCOUNTER 2016-09-17 08:13 | Outpatient (RCR) | payer MEDICAID ==
[~2016-09-17 08:13] MED LIST changes: -FERR-74 PO; -PANT40TA3 PO; -QUET100T69 PO; -SULF1TAB35 PO
== END 2016-09-17 16:00 | disposition home or self-care (01) ==
LOC: WOUNDCARE 08:13
PROVIDERS: ATTEND Surgery
DX: L97.221 Non-pressure chronic ulcer of left calf limited to breakdown of skin (principal); I87.332 Chronic venous hypertension (idiopathic) with ulcer and inflammation of left lower extremity; I89.0 Lymphedema, not elsewhere classified; I70.242 Atherosclerosis of native arteries of left leg with ulceration of calf; H91.3 Deaf nonspeaking, not elsewhere classified; E66.01 Morbid (severe) obesity due to excess calories; Z68.41 Body mass index [BMI] 40.0-44.9, adult
CPT/HCPCS: 99214

== ENCOUNTER → 2016-09-17 | Outpatient (CLI) | payer MEDICAID ==
[2016-09-17 10:55] LABS: BASOPHILS % (AUTO) 0 % (0-10); EOSINOPHILS # (AUTO) 0.3 10^3/uL (0.0-0.3); EOSINOPHILS % (AUTO) 2 % (0-10); LYMPHOCYTES # (AUTO) 1.2 X 10^3 (1.0-4.0); LYMPHOCYTES % (AUTO) 9 % (12-44); MEAN CORPUSCULAR HEMOGLOBIN 21 PG (25-34); MEAN CORPUSCULAR HGB CONC 28 G/DL (32-36); MEAN CORPUSCULAR VOLUME 76 FL (80-99); MEAN PLATELET VOLUME 9.9 FL (7.4-10.4); MONOCYTES # (AUTO) 1.5 X 10^3 (0.0-1.0); MONOCYTES % (AUTO) 11 % (0-12); NEUTROPHILS # (AUTO) 10.1 X 10^3 (1.8-7.8); NEUTROPHILS % (AUTO) 77 % (42-75); PLATELET COUNT 476 10^3/uL (130-400); WHITE BLOOD COUNT 13.1 10^3/uL (4.3-11.0)
[2016-09-17 11:19] LABS: ALANINE AMINOTRANSFERASE 10 U/L (0-55); ALBUMIN 3.3 G/DL (3.2-4.5); ANION GAP 10 MMOL/L (5-14); ASPARTATE AMINO TRANSFERASE 10 U/L (5-34); BILIRUBIN,TOTAL 0.7 MG/DL (0.1-1.0); BLOOD UREA NITROGEN 6 MG/DL (7-18); BUN/CREATININE RATIO 8; CALCIUM 9.4 MG/DL (8.5-10.1); CARBON DIOXIDE 22 MMOL/L (21-32); CHLORIDE 103 MMOL/L (98-107); CREATININE SERUM 0.76 MG/DL (0.60-1.30); GFR ESTIMATED > 60; GLUCOSE 100 MG/DL (70-105); POTASSIUM 3.8 MMOL/L (3.6-5.0); SODIUM 135 MMOL/L (135-145); TOTAL PROTEIN 7.8 G/DL (6.4-8.2)
== END ==
LOC: LAB 10:39
PROVIDERS: ATTEND Surgery
DX: I70.242 Atherosclerosis of native arteries of left leg with ulceration of calf (principal); L97.221 Non-pressure chronic ulcer of left calf limited to breakdown of skin; I87.332 Chronic venous hypertension (idiopathic) with ulcer and inflammation of left lower extremity; I89.0 Lymphedema, not elsewhere classified; E66.01 Morbid (severe) obesity due to excess calories; H91.3 Deaf nonspeaking, not elsewhere classified
CPT/HCPCS: 36415; 80053; 85025

== ENCOUNTER 2016-09-20 10:46 | Inpatient (IN) | payer MEDICAID ==
[~2016-09-20] VITALS: Ht 172.7 cm; Wt 125.7 kg
[2016-09-20 11:43] LABS: BASOPHILS % (AUTO) 0 % (0-10); EOSINOPHILS % (AUTO) 0 % (0-10); LYMPHOCYTES # (AUTO) 1.5 X 10^3 (1.0-4.0); LYMPHOCYTES % (AUTO) 11 % (12-44); MEAN CORPUSCULAR HEMOGLOBIN 21 PG (25-34); MEAN CORPUSCULAR HGB CONC 28 G/DL (32-36); MEAN CORPUSCULAR VOLUME 76 FL (80-99); MEAN PLATELET VOLUME 10.3 FL (7.4-10.4); MONOCYTES # (AUTO) 1.4 X 10^3 (0.0-1.0); MONOCYTES % (AUTO) 9 % (0-12); NEUTROPHILS # (AUTO) 11.5 X 10^3 (1.8-7.8); NEUTROPHILS % (AUTO) 80 % (42-75); PLATELET COUNT 325 10^3/uL (130-400); RED BLOOD COUNT 2.86 10^6/uL (4.35-5.85); RED CELL DISTRIBUTION WIDTH 20.7 % (10.0-14.5); WHITE BLOOD COUNT 14.4 10^3/uL (4.3-11.0)
[2016-09-20] MEDS ORDERED: FAMOTIDINE 20MG/2ML IV (PEPCID) IV STA (11:52)
[2016-09-20] MEDS ORDERED: fentaNYL INJECTION 100 MCG/2 ML AMP IVP STA (11:52)
[2016-09-20 11:56] LABS: ALBUMIN 3.1 G/DL (3.2-4.5); BILIRUBIN,TOTAL 0.9 MG/DL (0.1-1.0); CALCIUM 8.9 MG/DL (8.5-10.1); CREATININE SERUM 1.04 MG/DL (0.60-1.30); POTASSIUM 3.2 MMOL/L (3.6-5.0); TOTAL PROTEIN 7.7 G/DL (6.4-8.2)
--- NOTE | 2016-09-20 12:02 | ED General ---
General Chief Complaint: General Problems/Pain Stated Complaint: IRR LAB RESULTS Nursing Triage Note: TO ED PER W/C FROM [facility]. DR RUIZ OFFICE CALLED AN REPORTS TAHT HER HGB WAS 6.7 DRAWN ON TUESDAY. WAS CALLED BY LAB TO WOUND. CENTER. ON ADMIT NITS NOTICED IN BACK ON HEAD. DR RUIZ OFFICE REPORTS SHE MAY ALSO HAVE BED BUGS.PATIENT IS UNKEPT Nursing Sepsis Screen: No Definite Risk Source of Information: Patient, Family (mother) Exam Limitations: No Limitations History of Present Illness Time Seen by Provider: 11:33 Initial Comments 36-year-old female patient presents to the emergency department from Dr. Ruiz' s office with reports of a hemoglobin of 6.7 drawn on Tuesday. Result was reportedly called to wound care. Patient states no orders for blood were given. Mother reports patient has had anemia for the last 2 months. Was supposed to see Dr. Munoz today as an outpatient. Does have a family history for iron deficiency anemia. Dr. Ruiz's office reports patient also may have bedbugs and head lice. Mother reports patient has become more short of breath over the last several days. Denies melena, but it usually a, hematemesis. Patient did have an EGD by Dr. John approximately 6 wks ago which mother states was normal. Mother states they did not do a colonoscopy as the didn't think patient could tolerate the colonoscopy prep. Severity: Moderate Allergies and Home Medications Allergies Coded Allergies: pseudoephedrine (Unverified Allergy, Unknown, 01/20/16) Home Medications Ferrous Sulfate 325 Mg Tablet, 325 MG PO BID, (Reported) Hydrocodone/Ibuprofen 1 Each Tablet, 1 EACH PO Q6H PRN for PAIN, (Reported) Quetiapine Fumarate 100 Mg Tablet, 100 MG PO HS, (Reported) Constitutional: No chills, No diaphoresis, No dizziness, No fever, malaise, weakness EENTM: no symptoms reported Respiratory: No cough, No phlegm, short of breath, No stridor, No wheezing Cardiovascular: No chest pain, No edema, No palpitations, No syncope Gastrointestinal: No abdominal pain, No constipation, No diarrhea, No nausea, No vomiting Genitourinary: No decreased output, No dysuria, No frequency, No hematuria, No pain Musculoskeletal: other (patient reports chronic pain of the BLE) Skin: no symptoms reported Psychiatric/Neurological: No Symptoms Reported All Other Systems Reviewed Negative Unless Noted: Yes (Negative excepted noted.) Past Yxxwqrp-Onjvzy-Kcjieh Hx Patient Social History Alcohol Use: Denies Use Recreational Drug Use: No Smoking Status: Current Everyday Smoker Type Used: Cigarettes Recent Foreign Travel: No Contact w/Someone Who Travel: No Recent Infectious Disease Expo: No Recent Hopitalizations: No Seasonal Allergies Seasonal Allergies: No Surgeries HX Surgeries: Yes (kidney surgery at age 4, R knee scope, cystoscopy) Surgeries: Gallbladder, Orthopedic, Renal Respiratory Hx Respiratory Disorders: Yes Respiratory Disorders: Asthma Cardiovascular Hx Cardiac Disorders: No Neurological Hx Neurological Disorders: No Reproductive System Hx Reproductive Disorders: No Sexually Transmitted Disease: No Genitourinary Hx Genitourinary Disorders: Yes (kidney surgery at age 4, left ureteral obstruction) Gastrointestinal Hx Gastrointestinal Disorders: No Musculoskeletal Hx Musculoskeletal Disorders: No Endocrine Hx Endocrine Disorders: Yes (OBESITY) HEENT HX ENT Disorders: Yes Hearing Impairment: Hard of Hearing, Deaf Cancer Hx Cancer: No Psychosocial Hx Psychiatric Problems: Yes Behavioral Health Disorders: Anxiety, Bipolar, Depression Integumentary HX Skin/Integumentary Disorder: Yes Skin/Integumentary Disorders: Psoriasis Blood Transfusions Hx Blood Disorders: Yes (ANEMIA) Reviewed Nursing Assessment Reviewed/Agree w Nursing PMH: Yes Family Medical History Significant Family History: No Pertinent Family Hx Physical Exam Vital Signs Vital Sign - Last 12Hours 09/20/16 09/20/16 10:46 15:02 Temp 100.0 Pulse 83 Resp 18 B/P (MAP) 140/71 Pulse Ox 98 O2 Delivery Room Air O2 Flow Rate 2.00 Capillary Refill : Less Than 3 Seconds General Appearance: No Apparent Distress, Other (dirty, malodorous.) HEENT: PERRL/EOMI, Pharynx Normal Neck: Normal Inspection, Supple Respiratory: Lungs Clear, Normal Breath Sounds, No Respiratory Distress, Accessory Muscle Use, No Pleural Rub, No Rales, No Rhonci, No Stridor, No Wheezing, Other (anterior chest wall tender to palpation.) Cardiovascular: Regular Rate, Rhythm, No Murmur Gastrointestinal: Normal Bowel Sounds, Soft, No Distended, No Guarding, No Rebound, Tenderness (mild epigastric tenderness.) Extremity: Normal Capillary Refill, Pedal Edema (2+ pedal edema bilaterally.), Other (skin dry, scaly. small scabs scattered over the BLE and BUE.) Neurologic/Psychiatric: Alert, Oriented x3, Normal Mood/Affect Skin: Normal Color, Warm/Dry, No Cool, No Cyanosis, No Damp, No Diaphoresis, No Erythema, Other (skin dry, scaly. small scabs scattered over the BLE and BUE.) Progress/Results/Core Measures Results/Orders Lab Results Laboratory Tests Test 09/20/16 11:09 09/20/16 13:33 09/20/16 15:22 Range/Units White Blood Count 14.4 H 4.3-11.0 10^3/uL Red Blood Count 2.86 L 4.35-5.85 10^6/uL Hemoglobin 6.0 *L 11.5-16.0 G/DL Hematocrit 22 L 35-52 % Mean Corpuscular Volume 76 L 80-99 FL Mean Corpuscular Hemoglobin 21 L 25-34 PG Mean Corpuscular Hemoglobin Concent 28 L 32-36 G/DL Red Cell Distribution Width 20.7 H 10.0-14.5 % Platelet Count 325 130-400 10^3/uL Mean Platelet Volume 10.3 7.4-10.4 FL Neutrophils (%) (Auto) 80 H 42-75 % Lymphocytes (%) (Auto) 11 L 12-44 % Monocytes (%) (Auto) 9 0-12 % Eosinophils (%) (Auto) 0 0-10 % Basophils (%) (Auto) 0 0-10 % Neutrophils # (Auto) 11.5 H 1.8-7.8 X 10^3 Lymphocytes # (Auto) 1.5 1.0-4.0 X 10^3 Monocytes # (Auto) 1.4 H 0.0-1.0 X 10^3 Eosinophils # (Auto) 0.0 0.0-0.3 10^3/uL Basophils # (Auto) 0.0 0.0-0.1 10^3/uL Neutrophils % (Manual) 86 % Lymphocytes % (Manual) 9 % Monocytes % (Manual) 5 % Eosinophils % (Manual) 0 % Basophils % (Manual) 0 % Band Neutrophils 0 % Nucleated Red Blood Cells 1 Polychromasia SLIGHT Hypochromasia MARKED Anisocytosis MARKED Microcytosis MODERATE Prothrombin Time 16.5 H 12.2-14.7 SEC INR Comment 1.4 0.8-1.4 Activated Partial Thromboplast Time 38 H 24-35 SEC Sodium Level 135 135-145 MMOL/L Potassium Level 3.2 L 3.6-5.0 MMOL/L Chloride Level 100 98-107 MMOL/L Carbon Dioxide Level 24 21-32 MMOL/L Anion Gap 11 5-14 MMOL/L Blood Urea Nitrogen 16 7-18 MG/DL Creatinine 1.04 0.60-1.30 MG/DL Estimat Glomerular Filtration Rate 60 BUN/Creatinine Ratio 15 Glucose Level 116 H 70-105 MG/DL Calcium Level 8.9 8.5-10.1 MG/DL Magnesium Level 2.1 1.8-2.4 MG/DL Iron Level <10 L 35-180 ug/dL Total Iron Binding Capacity <374 280-380 ug/dL Unsaturated Iron Binding Capacity 364 55-450 ug/dL Transferrin % Saturation 2 15-50 % Total Bilirubin 0.9 0.1-1.0 MG/DL Aspartate Amino Transf (AST/SGOT) 15 5-34 U/L Alanine Aminotransferase (ALT/SGPT) 10 0-55 U/L Alkaline Phosphatase 76 40-136 U/L Troponin I < 0.30 <0.30 NG/ML Total Protein 7.7 6.4-8.2 G/DL Albumin 3.1 L 3.2-4.5 G/DL TSH [place] Testing 3.95 0.35-4.94 UIU/ML Urine Color YELLOW Urine Clarity SLIGHTLY CLOUDY Urine pH 5 5-9 Urine Specific [place] 1.025 H 1.016-1.022 Urine Protein 2+ H NEGATIVE Urine Glucose (UA) NEGATIVE NEGATIVE Urine Ketones NEGATIVE NEGATIVE Urine Nitrite NEGATIVE NEGATIVE Urine Bilirubin NEGATIVE NEGATIVE Urine Urobilinogen 1 NORMAL MG/DL Urine Leukocyte Esterase 1+ H NEGATIVE Urine RBC (Auto) NEGATIVE NEGATIVE Urine RBC NONE /HPF Urine WBC RARE /HPF Urine Squamous Epithelial Cells 2-5 /HPF Urine Crystals PRESENT H /LPF Urine Amorphous Sediment LARGE SARA URATES H /LPF Urine Bacteria NEGATIVE /HPF Urine Casts NONE /LPF Urine Mucus NEGATIVE /LPF Urine Culture Indicated NO Lactic Acid Level 1.35 0.50-2.00 MMOL/L My Orders Orders - ASIA MCMILLAN Cbc With Automated Diff (09/20/16 11:37) Comprehensive Metabolic Panel (09/20/16 11:37) Saline Lock/Iv-Start (09/20/16 11:37) Manual Differential (09/20/16 11:09) Magnesium (09/20/16 11:52) Protime With Inr (09/20/16 11:52) Partial Thromboplastin Time (09/20/16 11:52) Thyroid Analyzer (09/20/16 11:52) Troponin I (09/20/16 11:52) Ua Culture If Indicated (09/20/16 11:52) Chest 1 View, Ap/Pa Only (09/20/16 11:52) Fentanyl Injection (Sublimaze Injection (09/20/16 11:52) Famotidine Injection (Pepcid Injection) (09/20/16 11:52) Vitamin B 12 (09/20/16 13:50) Folic Acid (09/20/16 13:50) Iron Tibc %Sat & Ferritin (09/20/16 13:50) Blood Culture (09/20/16 14:51) Levofloxacin 750 Mg/150 Ml Iv (Levaquin (09/20/16 14:51) Lactic Acid Analyzer (09/20/16 14:51) Vital Signs/I&O Vital Sign - Last 12Hours 09/20/16 09/20/16 09/20/16 09/20/16 15:02 18:00 20:01 20:59 Temp 103.2 103.0 101.7 Pulse 84 95 87 Resp 18 28 22 B/P (MAP) 145/75 130/75 Pulse Ox 100 91 95 O2 Delivery Room Air Room Air O2 Flow Rate 2.00 Blood Pressure Mean: 94 Diagnostic Imaging Diagonstic Imaging: Xray Plain Films/CT/US/NM/MRI: chest Comments COMPARISON: 08/20/2016. FINDINGS: The heart is mildly enlarged. There is some mild left perihilar infiltrate. There is poor inspiration which limits the study. There is mild central vascular congestion. There is no pneumothorax or pleural fluid. IMPRESSION: Mild cardiomegaly with central vascular congestion. There is some mild left perihilar infiltrate. There is no pleural fluid. Dictated by: Dictated on workstation # [id number] Reviewed: Reviewed by Me (radiology report reviewed by me.) Departure Communication Time/Spoke to Admitting Phy: 13:[address] poe accepts pt to her medical service for IV antibiotics, IV fluids, and further evaluation. Progress Notes Patient seen and evaluated. Records reviewed. Patient is noted to have had a HGB between 6.0-7.0 for the last 8 wks. This was discussed with the patient and family. Both state they were aware of this. Patient requested something for her chronic pain and was given 1 dose of fentanyl. Patient is noted to have dropped from 6.7 to 6.0 hgb since Tuesday. Patient again denies melena, hematochezia, or hematemesis. All laboratory findings, diagnostic study findings, and plan for admission discussed with the patient. Patient voices understanding and agrees with the treatment plan. Patient case discussed with Dr. Rees, he agrees with the plan of care. Impression Impression: Primary Impression: Pneumonia Additional Impressions: Anemia Hypokalemia Head lice infestation Bedbug bite Disposition: ADMITTED INPATIENT Condition: Stable Decision to Admit Reason: Admit from ER (General) Decision to Admit/Date: September 20, 2016 Departure-Patient Inst. Referrals: SINAN QUINONES MD (PCP/Family) Primary Care Physician ASIA MCMILLAN September 20, 2016 12:02
[2016-09-20 12:12] LABS: BAND NEUTROPHILS 0 %; BASOPHILS % (MANUAL) 0 %; EOSINOPHILS % (MANUAL) 0 %; LYMPHOCYTES % (MANUAL) 9 %; NEUTROPHILS % (MANUAL) 86 %; POLYCHROMASIA SLIGHT
[2016-09-20 12:13] LABS: ANISOCYTOSIS MARKED; HYPOCHROMASIA MARKED; MICROCYTOSIS MODERATE
--- NOTE | 2016-09-20 12:38 | Diagnostic Imaging Report ---
INDICATION: Abnormal hemoglobin. TECHNIQUE: A PA chest was obtained at 1219 hours. COMPARISON: 08/20/2016. FINDINGS: The heart is mildly enlarged. There is some mild left perihilar infiltrate. There is poor inspiration which limits the study. There is mild central vascular congestion. There is no pneumothorax or pleural fluid. IMPRESSION: Mild cardiomegaly with central vascular congestion. There is some mild left perihilar infiltrate. There is no pleural fluid. Dictated by: Dictated on workstation # [id number]
[2016-09-20 12:49] LABS: INR 1.4 (0.8-1.4); PROTHROMBIN TIME PATIENT 16.5 SEC (12.2-14.7)
[2016-09-20 12:52] LABS: MAGNESIUM 2.1 MG/DL (1.8-2.4)
[2016-09-20 13:19] LABS: TROPONIN I < 0.30 NG/ML (<0.30)
[2016-09-20 13:44] LABS: BILIRUBIN,URINE NEGATIVE (NEGATIVE); KETONES,URINE NEGATIVE (NEGATIVE); LEUKOCYTE ESTERASE ,URINE 1+ (NEGATIVE); NITRITE,URINE NEGATIVE (NEGATIVE); PH,URINE 5 (5-9); PROTEIN,URINE 2+ (NEGATIVE); UROBILINOGEN,URINE 1 MG/DL (NORMAL)
[2016-09-20 13:55] LABS: WBC,URINE RARE /HPF
[2016-09-20] MEDS ORDERED: LEVOFLOXACIN 750 MG/150 ML IV 150 ML IV STA (14:51)
[2016-09-20] MEDS ORDERED: QUET100T69 PO (16:36)
[2016-09-20] MEDS ORDERED: FERR-74 PO (16:36)
[2016-09-20 16:45] LABS: %SAT TOTAL IRON BINDING CAPIC 2 % (15-50); TIBC <374 ug/dL (280-380)
[2016-09-20] MEDS ORDERED: PIPERACILLIN/TAZOBACTAM 4.5 GM/NS 100 ML IV NR ×2 (16:45)
[2016-09-20] MEDS ORDERED: CATHETER FLUSH 10 ML SYR IV PRN (17:00)
[2016-09-20] MEDS ORDERED: VANCOMYCIN 1,750 MG/NS 500 ML IVPB IV NR ×2 (17:00)
[2016-09-20] MEDS ORDERED: FUROSEMIDE 40 MG/4 ML INJ (LASIX) IV NR (17:00)
[2016-09-20] MEDS ORDERED: NS IV 500 ML 500 ML IV SCH (17:00)
[2016-09-20] MEDS ORDERED: HYDROcodone/APAP 5 MG/325 MG (LORTAB) TAB PO PRN (17:00)
[2016-09-20] MEDS ORDERED: ONDANSETRON 4 MG/2 ML (SDV) Z0FRAN IV PRN (17:00)
[2016-09-20] MEDS: LINDANE 1% SHAMPOO (KWELL) 60ML BTL TOP SCH (17:03)
[2016-09-20 17:08] LABS: UIBC 364 ug/dL (55-450)
[2016-09-20 18:00] VITALS: BP 145/75
[2016-09-20] MEDS ORDERED: ACETAMINOPHEN 325 MG TABLET/CAPLET (TYLENOL) PO NR (19:15)
[2016-09-20] MEDS: PANTOPRAZOLE 40 MG (PROTONIX) TAB PO SCH (20:00)
[2016-09-20 20:59] VITALS: BP 130/75
[2016-09-20] MEDS: IBUPROFEN 600 MG (MOTRIN) TAB PO SCH (22:16)
[2016-09-20] MEDS: PIPERACILLIN/TAZOBACTAM 4.5 GM/NS 100 ML IVPB IV SCH ×2 (23:00)
[2016-09-20] MEDS: NS W/KCL 40 MEQ/L 1,000 ML IV SCH ×2 (23:07→23:40)
[2016-09-20] MEDS: FAMOTIDINE 20MG/2ML IV (PEPCID) IV SCH (23:13)
[2016-09-21] VITALS (14 sets, daily range): BP systolic 106–130; BP diastolic 52–84
[2016-09-21] MEDS ORDERED: VANCOMYCIN 1500 MG/NS 500 ML IVPB IV SCH ×2 (05:00)
[2016-09-21 06:10] LABS: BASOPHILS % (AUTO) 0 % (0-10); EOSINOPHILS % (AUTO) 0 % (0-10); LYMPHOCYTES # (AUTO) 1.2 X 10^3 (1.0-4.0); LYMPHOCYTES % (AUTO) 12 % (12-44); MEAN CORPUSCULAR HEMOGLOBIN 21 PG (25-34); MEAN CORPUSCULAR HGB CONC 27 G/DL (32-36); MEAN CORPUSCULAR VOLUME 76 FL (80-99); MEAN PLATELET VOLUME 10.4 FL (7.4-10.4); MONOCYTES % (AUTO) 9 % (0-12); NEUTROPHILS # (AUTO) 8.4 X 10^3 (1.8-7.8); NEUTROPHILS % (AUTO) 79 % (42-75); PLATELET COUNT 273 10^3/uL (130-400); RED BLOOD COUNT 2.58 10^6/uL (4.35-5.85); RED CELL DISTRIBUTION WIDTH 20.3 % (10.0-14.5); WHITE BLOOD COUNT 10.7 10^3/uL (4.3-11.0)
[2016-09-21 06:34] LABS: ALBUMIN 2.6 G/DL (3.2-4.5); BILIRUBIN,TOTAL 0.7 MG/DL (0.1-1.0); CALCIUM 8.4 MG/DL (8.5-10.1); CREATININE SERUM 1.06 MG/DL (0.60-1.30); POTASSIUM 3.5 MMOL/L (3.6-5.0); TOTAL PROTEIN 6.6 G/DL (6.4-8.2)
[2016-09-21] MEDS: IBUPROFEN 600 MG (MOTRIN) TAB PO SCH ×2 (06:53→15:18)
--- NOTE | 2016-09-21 07:57 | Diagnostic Imaging Report ---
Indication: Lower respiratory infection Portable chest 6:22 AM Heart size and pulmonary vascularity are normal. Lungs are clear. There are no effusions or pneumothoraces. Impression: Negative chest Dictated by: Dictated on workstation # [id number]
[2016-09-21] MEDS ORDERED: GOLYTELY POWDER 4000 ML BTL PO NR (08:00)
[2016-09-21] MEDS: PANTOPRAZOLE 40 MG (PROTONIX) TAB PO SCH (08:12)
[2016-09-21] MEDS: NS W/KCL 40 MEQ/L 1,000 ML IV SCH ×4 (09:52→19:14)
[2016-09-21] MEDS: LEVOFLOXACIN 750 MG/D5W 150 ML PRE-MIX IV SCH (11:13)
[2016-09-21] MEDS ORDERED: FUROSEMIDE 40 MG/4 ML INJ (LASIX) IVP NR (11:45)
--- NOTE | 2016-09-21 11:48 | HISTORY AND PHYSICAL ---
DATE OF SERVICE: COLONOSCOPY HISTORY AND PHYSICAL AND CONSULTATION HISTORY OF PRESENT ILLNESS: The patient is a 36-year-old white female who is a very difficult historian due to deafness and likely personality disorder issues. I initially saw her 6 weeks ago for EGD evaluation for left upper quadrant abdominal pain and anemia. Her EGD did not reveal any potential bleeding sites. She has also had issues with progressive left-sided hydronephrosis and I did repeat her CT scan. It revealed progressive hydronephrosis, but there were also some questionable irregularity in the cecum. At that time, her hemoglobin was in the 6-7 range. We were waiting on a workup for her hydronephrosis as getting her prepped for colonoscopy was going to be extremely difficult, according to her sister, who has been her primary childcare worker. The patient also had a severe bed bug infestation and a mild eosinophilia which may have been contributing to her iron deficiency anemia as well. The patient is unable to give significant history, but apparently is feeling increasingly weak and her sister, who normally looks after her, is currently hospitalized. Her mother is in the home, but is wheelchair bound and unable to help much with her care needs. She apparently has run a fever overnight and she is just now getting her first unit of blood, having had a temperature of 103 overnight. The patient appeared to be comfortable during the interview and only when we started asking about her left upper quadrant abdominal pain did she report that it was still there. PAST MEDICAL HISTORY: Significant for severe hearing impairment with history of low IQ. In regards to progressive left hydroureter, she had undergone cystoscopy and ureteroscopy per Dr. Julian, but there was no evidence for mechanical obstruction nor did there appear to be evidence for significant reflux and she is being sent for second opinion at . There is still a significant bed bug infestation issue and her sister does reportedly have exterminators coming into the home, although while Saumya is hospitalized she usually keeps her room locked and is very private about her affairs and they have not been able to get into her room earlier to achieve fumigation. FAMILY HISTORY: Pertinent for 1 first-degree relative with colon polyps and several second-degree relatives with colon cancer. SOCIAL HISTORY: She has an approximate 15-pack year smoking history with no reported recreational drug use or alcohol use. PAST SURGICAL HISTORY: She did have reported left ureteral obstruction requiring surgery at the age of 4 and has had cholecystectomy in the past and arthroscopy of the right knee on several occasions. PHYSICAL EXAMINATION: GENERAL: Obese, white female who appeared to be resting comfortably in bed with significant pallor. VITAL SIGNS: Blood pressure was 107/58 with a heart rate of 61. O2 saturation on 2 liters was 99%. CHEST: The patient did exhibit a loose, nonproductive cough during the interview. Her chest, however, was clear. CARDIOVASCULAR: Regular rate and rhythm without murmur or S3 or S4. ABDOMEN: Soft, supple without mass or organomegaly. She did have some left upper quadrant discomfort to palpation. With distraction, there was no rebound or guarding. Bowel sounds are positive. EXTREMITIES: Reveal brawny, 1-2+ edema at the left lower extremity with hyperpigmentation, scaling skin, but no underlying ulceration. Right lower extremity revealed 1-2+ edema without chronic venous insufficiency change. SKIN: Revealed no evidence for cellulitis or ulceration. RADIOGRAPHY AND LABORATORY: Chest x-ray revealed no evidence for acute infiltrates. Initial urine revealed rare white cells and no evidence for bacteria, large amorphous urates were noted with specific gravity of 1.025. Laboratory evaluation revealed a hemoglobin of 6 last night, with hydration down to 5.3. This morning, a MCV of 76, platelet count was 273,000 with a white count last night of 14.4 thousand with left shift. Eosinophilia was not noted on the automated diff. Her chemistry panel revealed mild AST elevation of 60, alkaline phosphatase was elevated at 162 with a sodium of 134 and potassium of 3.5 and glucose is 106. BUN was 19 with a creatinine of 1.06. ASSESSMENT: 1. Iron deficiency anemia, previous occult positive blood in the stool with questionable cecal abnormality on CAT scan. Will set the patient up for colonoscopy, for which she will need anesthesia for Diprivan for patient's safety. Will set this up for Tuesday, provided that the patient's medical status is stable. 2. Febrile illness. Patient is on broad-spectrum antibiotics. As of yet, there is no definitive etiology of her infection. Will continue to monitor and again proceed with colonoscopy if the patient's condition is stable. 3. Noted hypoxia last night, for which oxygen was applied. The patient's body habitus is strongly suggestive of significant sleep apnea; however, it is highly doubtful that this patient would comply with nasal CPAP. Would likely hold off on workup until after colonoscopy and it is debatable if one cannot treat the underlying condition whether or not you should look into diagnosis. Would defer to her primary care provider. 4. Severe iron deficiency anemia with occult positive blood in the stool, as well as sever bed bug parasitic infection. The patient has undergone treatment with extermination of the home to follow. The patient is receiving 2 units of packed cells with followup CBC to follow. 5. Mild liver function test elevation. Continue to monitor. Job ID: [id number] DocumentID: [id number] Dictated Date: 09/21/2016 10:58:49 Tire Technician Date: 09/21/2016 11:47:54 Dictated By: TOO JACKSON MD
[2016-09-21] MEDS: FAMOTIDINE 20MG/2ML IV (PEPCID) IV SCH ×2 (12:25→21:51)
[2016-09-21] MEDS: VANCOMYCIN 1500 MG/NS 500 ML IVPB IV SCH ×2 (13:16)
[2016-09-21] MEDS: PIPERACILLIN/TAZOBACTAM 4.5 GM/NS 100 ML IVPB IV SCH ×4 (13:16→21:51)
[2016-09-21] MEDS ORDERED: VNL75T PO (15:46)
[2016-09-21 16:04] LABS: FOLIC ACID 11.4 ng/mL (1.5-24.0)
--- NOTE | 2016-09-21 16:20 | Oncology Consultation ---
Visit Information Visit Information Date of Admission September 20, 2016 at 14:27 Attending Physician Anneliese Sy MD Admitting Physician Fred Harrington MD Chief Complaint anemia Interval History Ms. Calderon is a 36 year old white female admitted from ER for fever and severe anemia. I was supposed to see as out-pt consult for anemia but she ended being admitted on Tuesday night with fever 103. Blood culture showed staph aures. She was treated with IV vancomycin. Her Hb was 6.9 on admission and then dropped to 5.3 after IVF. She was also noticed to have bed bugs infection. She is in isolation. She is morbid obese and very poor personal hygiene. She is mild mental retarded. I consulted the patient on: 09/21/16 16:14 Constitutional: weakness Respiratory: short of breath Cardiovascular: no symptoms reported Genitourinary: no symptoms reported Psychiatric/Neurological: Emotional Problems Health Status Allergies Coded Allergies: pseudoephedrine (Unverified Allergy, Unknown, 01/20/16) Home Medications Ferrous Sulfate (Ferrous Sulfate) 325 Mg Tablet, 325 MG PO BID, (Reported) Hydrocodone/Ibuprofen (Hydrocodone-Ibuprofen 7.5-200) 1 Each Tablet, 1 EACH PO Q6H PRN for PAIN, (Reported) Quetiapine Fumarate (Quetiapine Fumarate) 100 Mg Tablet, 100 MG PO HS, (Reported ) Venlafaxine HCl (Venlafaxine HCl) 75 Mg Tab, 75 MG PO HS, (Reported) LAST FILLED 08/06/16 #60 [id number]-Bwyvcy Hx Patient Social History Alcohol Use: Denies Use Recreational Drug Use: No Smoking Status: Current Everyday Smoker Type Used: Cigarettes Recent Foreign Travel: No Contact w/other who traveled: No Recent Infectious Disease Expo: No Recent Hopitalizations: No Physical Abuse Screen: No Sexual Abuse: No Family Medical History Significant Family History: No Pertinent Family Hx Physical Exam Vital Signs Vital Sign - Last 12Hours 09/20/16 09/20/16 10:46 15:02 Temp 100.0 Pulse 83 Resp 18 B/P (MAP) 140/71 Pulse Ox 98 O2 Delivery Room Air O2 Flow Rate 2.00 Capillary Refill : Less Than 3 Seconds General Appearance: No Apparent Distress HEENT: PERRL/EOMI Neck: Non Tender, Supple Respiratory: Chest Non Tender, Decreased Breath Sounds, Expiration Cardiovascular: Regular Rate, Rhythm Neurologic/Psychiatric: Alert, Depressed Affect Data Review Labs Laboratory Tests 09/21/16 06:00 Laboratory Tests 09/20/16 11:09: White Blood Count 14.4H, Red Blood Count 2.86L, Hemoglobin 6.0*L, Hematocrit 22L , Mean Corpuscular Volume 76L, Mean Corpuscular Hemoglobin 21L, Mean Corpuscular Hemoglobin Concent 28L, Red Cell Distribution Width 20.7H, Neutrophils (%) (Auto) 80H, Lymphocytes (%) (Auto) 11L, Neutrophils # (Auto) 11.5H, Monocytes # (Auto) 1.4H, Prothrombin Time 16.5H, Activated Partial Thromboplast Time 38H, Potassium Level 3.2L, Glucose Level 116H, Iron Level <10L , Albumin 3.1L 09/20/16 13:33: Urine Specific [place] 1.025H, Urine Protein 2+H, Urine Leukocyte Esterase 1+H, Urine Crystals PRESENTH, Urine Amorphous Sediment LARGE SARA URATESH 09/20/16 15:22: 09/21/16 06:00: Red Blood Count 2.58L, Hemoglobin 5.3*L, Hematocrit 20*L, Mean Corpuscular Volume 76L, Mean Corpuscular Hemoglobin 21L, Mean Corpuscular Hemoglobin Concent 27L, Red Cell Distribution Width 20.3H, Neutrophils (%) (Auto) 79H, Neutrophils # (Auto) 8.4H, Potassium Level 3.5L, Glucose Level 106H, Albumin 2.6L, Sodium Level 134L, Blood Urea Nitrogen 19H, Calcium Level 8.4L, Aspartate Amino Transf (AST/SGOT) 60H, Alkaline Phosphatase 162H Impression & Plan Impression & Plan IMP: 1. Severe microcytic iron deficiency anemia. Hb 5-6 range, iron <10 and saturation <2%. Receiving 2 units RBC transfusion. 2. Bed bug infection on treatment. 3. Staph bacteremia on Vancomycin, Zosyn and Levaquin 4. Morbid obese 5. Mild mental retardation. 6. Poor personal hygiene. Plan: 1. Agree with current antibiotics and transfusion 2. She will need GI scope once her infection under control in both bed bug and staph 3. She will be a poor candidate for oral iron right now because of tolerance issues with so many things going on, specially GI track. 4. She is on Protonix. GENESIS LINDSAY MD September 21, 2016 16:20
[2016-09-21] MEDS ORDERED: TROUGH ORDER-PHARMACY XX NR (18:00)
--- NOTE | 2016-09-21 19:45 | History & Physicial (CHS) ---
HPI History of Present Illness: 36 yo F that was admitted for severe anemia requiring transfusion. She was brought in by her mother for increased shortness of breath and fatigue. Patient states that she also has a pain in her stomach in which she sees [facility] for. She has a severe infestation of bed bugs and lice on admission. Very poor hygiene. Otherwise has not other complaints this AM. She is asking why she feels so bad all the time. Primary careers adviser is her mother and sister. Mother recently admitted a few weeks ago and sister is currently admitted for abscess with I&D. Source: patient, RN/MD, old records Exam Limitations: other (Patient has hearing difficulties but able to answer questions appropriately by writing) Date seen by provider: September 21, 2016 Attending Physician Anneliese Sy MD PCP Fred Quinones MD Consult Date of Admission September 20, 2016 at 14:27 Home Medications Home Medications Reviewed patient Home Medication Reconciliation Form Allergies Coded Allergies: pseudoephedrine (Unverified Allergy, Unknown, 01/20/16) DVF-Ssfeuf-Hignjs Hx Patient Social History Living Status: Lives with mother and sister in home with infestation of bed bug and lice Alcohol Use: Denies Use Recreational Drug Use: No Smoking Status: Current Everyday Smoker Type Used: Cigarettes Recent Foreign Travel: No Contact w/other who traveled: No Recent Hopitalizations: No Recent Infectious Disease Expo: No Physical Abuse Screen: No Sexual Abuse: No Past Medical History Mild mental retardation Severe Anemia Family Medical History Significant Family History: No Pertinent Family Hx Review of Systems (CHC) Constitutional: No dizziness, malaise, No weakness, No weight gain, No weight loss EENTM: no symptoms reported, other (Parital deafness) Respiratory: cough, dyspnea on exertion, No hemoptysis, No orthopnea, short of breath, No wheezing Cardiovascular: no symptoms reported, No chest pain, No edema, No palpitations Gastrointestinal: abdominal pain (epigastric), No constipation, No diarrhea, No hematemesis, No nausea, No vomiting Genitourinary: no symptoms reported, No dysuria, No frequency, No hematuria : No Musculoskeletal: no symptoms reported, No back pain, No joint pain, No muscle pain Skin: rash Psychiatric/Neurological: Denies Headache Reviewed Test Results Reviewed Test Results Lab Laboratory Tests Test 09/20/16 11:09 09/20/16 13:33 09/20/16 15:22 09/21/16 06:00 Range/Units White Blood Count 14.4 H 10.7 4.3-11.0 10^3/uL Red Blood Count 2.86 L 2.58 L 4.35-5.85 10^6/uL Hemoglobin 6.0 *L 5.3 *L 11.5-16.0 G/DL Hematocrit 22 L 20 *L 35-52 % Mean Corpuscular Volume 76 L 76 L 80-99 FL Mean Corpuscular Hemoglobin 21 L 21 L 25-34 PG Mean Corpuscular Hemoglobin Concent 28 L 27 L 32-36 G/DL Red Cell Distribution Width 20.7 H 20.3 H 10.0-14.5 % Platelet Count 325 273 130-400 10^3/uL Mean Platelet Volume 10.3 10.4 7.4-10.4 FL Neutrophils (%) (Auto) 80 H 79 H 42-75 % Lymphocytes (%) (Auto) 11 L 12 12-44 % Monocytes (%) (Auto) 9 9 0-12 % Eosinophils (%) (Auto) 0 0 0-10 % Basophils (%) (Auto) 0 0 0-10 % Neutrophils # (Auto) 11.5 H 8.4 H 1.8-7.8 X 10^3 Lymphocytes # (Auto) 1.5 1.2 1.0-4.0 X 10^3 Monocytes # (Auto) 1.4 H 1.0 0.0-1.0 X 10^3 Eosinophils # (Auto) 0.0 0.0 0.0-0.3 10^3/uL Basophils # (Auto) 0.0 0.0 0.0-0.1 10^3/uL Neutrophils % (Manual) 86 % Lymphocytes % (Manual) 9 % Monocytes % (Manual) 5 % Eosinophils % (Manual) 0 % Basophils % (Manual) 0 % Band Neutrophils 0 % Nucleated Red Blood Cells 1 Polychromasia SLIGHT Hypochromasia MARKED Anisocytosis MARKED Microcytosis MODERATE Prothrombin Time 16.5 H 12.2-14.7 SEC INR Comment 1.4 0.8-1.4 Activated Partial Thromboplast Time 38 H 24-35 SEC Sodium Level 135 134 L 135-145 MMOL/L Potassium Level 3.2 L 3.5 L 3.6-5.0 MMOL/L Chloride Level 100 103 98-107 MMOL/L Carbon Dioxide Level 24 21 21-32 MMOL/L Anion Gap 11 10 5-14 MMOL/L Blood Urea Nitrogen 16 19 H 7-18 MG/DL Creatinine 1.04 1.06 0.60-1.30 MG/DL Estimat Glomerular Filtration Rate 60 59 BUN/Creatinine Ratio 15 18 Glucose Level 116 H 106 H 70-105 MG/DL Calcium Level 8.9 8.4 L 8.5-10.1 MG/DL Magnesium Level 2.1 1.8-2.4 MG/DL Iron Level <10 L 35-180 ug/dL Total Iron Binding Capacity <374 280-380 ug/dL Unsaturated Iron Binding Capacity 364 55-450 ug/dL Transferrin % Saturation 2 15-50 % Ferritin 36.0 15.0-150.0 ng/mL Total Bilirubin 0.9 0.7 0.1-1.0 MG/DL Aspartate Amino Transf (AST/SGOT) 15 60 H 5-34 U/L Alanine Aminotransferase (ALT/SGPT) 10 27 0-55 U/L Alkaline Phosphatase 76 162 H 40-136 U/L Troponin I < 0.30 <0.30 NG/ML Total Protein 7.7 6.6 6.4-8.2 G/DL Albumin 3.1 L 2.6 L 3.2-4.5 G/DL Vitamin B12 Level 592 269-2873 pg/mL Folate 11.4 1.5-24.0 ng/mL TSH [place] Testing 3.95 0.35-4.94 UIU/ML Urine Color YELLOW Urine Clarity SLIGHTLY CLOUDY Urine pH 5 5-9 Urine Specific [place] 1.025 H 1.016-1.022 Urine Protein 2+ H NEGATIVE Urine Glucose (UA) NEGATIVE NEGATIVE Urine Ketones NEGATIVE NEGATIVE Urine Nitrite NEGATIVE NEGATIVE Urine Bilirubin NEGATIVE NEGATIVE Urine Urobilinogen 1 NORMAL MG/DL Urine Leukocyte Esterase 1+ H NEGATIVE Urine RBC (Auto) NEGATIVE NEGATIVE Urine RBC NONE /HPF Urine WBC RARE /HPF Urine Squamous Epithelial Cells 2-5 /HPF Urine Crystals PRESENT H /LPF Urine Amorphous Sediment LARGE SARA URATES H /LPF Urine Bacteria NEGATIVE /HPF Urine Casts NONE /LPF Urine Mucus NEGATIVE /LPF Urine Culture Indicated NO Lactic Acid Level 1.35 0.50-2.00 MMOL/L Radiology Date of Exam: 09/21/16 CHEST 1 VIEW, AP/PA ONLY Indication: Lower respiratory infection Portable chest 6:22 AM Heart size and pulmonary vascularity are normal. Lungs are clear. There are no effusions or pneumothoraces. Impression: Negative chest Physical Exam-(CHC) Physical Exam Vital Signs VS - Last 72 Hours, by Label 09/20/16 09/20/16 09/20/16 09/20/16 10:46 15:02 18:00 20:01 Temp 100.0 103.2 103.0 Pulse 83 84 95 Resp 18 18 28 B/P (MAP) 140/71 145/75 Pulse Ox 98 100 91 O2 Delivery Room Air Room Air O2 Flow Rate 2.00 09/20/16 09/20/16 09/21/16 09/21/16 20:10 20:59 00:10 04:00 Temp 101.7 99.4 96.8 Pulse 87 73 53 Resp 22 24 23 B/P (MAP) 130/75 126/70 130/81 Pulse Ox 92 95 93 100 O2 Delivery Room Air Nasal Cannula Nasal Cannula O2 Flow Rate 2.00 2.00 09/21/16 09/21/16 09/21/16 09/21/16 05:11 07:55 08:00 08:15 Temp 96.6 96.9 Pulse 61 61 Resp 23 20 B/P (MAP) 107/58 107/56 Pulse Ox 95 99 100 O2 Delivery Nasal Cannula O2 Flow Rate 2.00 2.00 2.00 09/21/16 09/21/16 09/21/16 09/21/16 08:30 08:45 11:20 12:00 Temp 96.9 97.6 98.0 98.7 Pulse 63 62 63 60 Resp 20 18 19 B/P (MAP) 106/58 117/71 107/72 Pulse Ox 97 98 96 O2 Delivery Room Air 09/21/16 09/21/16 09/21/16 09/21/16 12:45 12:57 15:27 18:37 Temp 98.7 98.0 Pulse 63 60 69 Resp 18 19 18 B/P (MAP) 117/71 107/72 111/72 Pulse Ox 98 96 O2 Flow Rate 2.00 Capillary Refill : Less Than 3 Seconds General Appearance: no apparent distress, obese, other (unkempt) HEENT: PERRL/EOMI, pharynx normal, pale conjunctivae (R), pale conjunctivae (L) Neck: non-tender, full range of motion, supple, normal inspection Respiratory: chest non-tender, lungs clear, normal breath sounds, no respiratory distress, no accessory muscle use Cardiovascular: normal peripheral pulses, regular rate, rhythm, no edema, no gallop, no JVD, no murmur Gastrointestinal: normal bowel sounds, soft, no organomegaly, no pulsatile mass , tenderness (epigastric) Rectal: No black stool, No blood streaked stool Back: normal inspection, no CVA tenderness, no vertebral tenderness Extremities: normal range of motion, non-tender, normal inspection, no pedal edema, no calf tenderness, normal capillary refill Neurologic/Psychiatric: hearing aid specialist II-XII nml as tested, no motor/sensory deficits, alert, normal mood/affect, oriented x 3 Skin: normal color, warm/dry Lymphatic: no adenopathy Assessment/Plan Assessment/Plan Plan 36 yo with mild retardation admitted for fever and severe anemia Plan Severe Microcytic Iron Deficiency Anemia possible GI loss vs infestation of bugs - Plan to due inpatient colonoscopy once infection is under control, Dr John consulted for scope - Will replace Iron via IV after scope - s/p 2 units pRBCs - Consult Hematology as patient was to see them this week outpatient Staph Bacteremia - Continue IV antibiotics at this time D2 - Tylenol and motrin to help control fever Bed Bug and Lice infestation - Patient has been showered and treated, will continue to monitor - SW following case to help with home infestation Hypokalemia - replace and repeat in AM FEN: CLD DVT PPX: SCDs, lovenox contraindicated at this time due to severe anemia Dispo: Admit to Med Surg, Inpatient Scope and then IV iron replacement Social: SW consulted and following Diagnosis/Problems: Clinical Quality Measures DVT/VTE Risk/Contraindication: Risk Factor Score Per Nursin RFS Level Per Nursing on Admit: 4+=Very High Copy Copies To 1: FRED QUINONES MD, HOLLY R MD September 21, 2016 19:45
[2016-09-21] MEDS ORDERED: VENlafaxine 75 MG (EFFEXOR) TAB PO SCH (21:00)
[2016-09-21] MEDS: QUEtiapine 100 MG (SEROquel) TAB IMMEDIATE RELEASE PO SCH (21:52)
[2016-09-21] MEDS: ACETAMINOPHEN 325 MG TABLET/CAPLET (TYLENOL) PO PRN (23:19)
[2016-09-22] VITALS (9 sets, daily range): BP systolic 96–132; BP diastolic 62–84
[2016-09-22] MEDS: VANCOMYCIN 1500 MG/NS 500 ML IVPB IV SCH ×4 (03:20→17:22)
[2016-09-22] MEDS: PIPERACILLIN/TAZOBACTAM 4.5 GM/NS 100 ML IVPB IV SCH ×6 (05:52→22:16)
[2016-09-22] MEDS: PANTOPRAZOLE 40 MG (PROTONIX) TAB PO SCH (06:24)
[2016-09-22 06:47] LABS: BASOPHILS % (AUTO) 0 % (0-10); EOSINOPHILS # (AUTO) 0.1 10^3/uL (0.0-0.3); EOSINOPHILS % (AUTO) 1 % (0-10); LYMPHOCYTES # (AUTO) 1.9 X 10^3 (1.0-4.0); LYMPHOCYTES % (AUTO) 19 % (12-44); MEAN CORPUSCULAR HEMOGLOBIN 22 PG (25-34); MEAN CORPUSCULAR HGB CONC 29 G/DL (32-36); MEAN CORPUSCULAR VOLUME 76 FL (80-99); MEAN PLATELET VOLUME 11.5 FL (7.4-10.4); MONOCYTES # (AUTO) 0.7 X 10^3 (0.0-1.0); MONOCYTES % (AUTO) 7 % (0-12); NEUTROPHILS # (AUTO) 7.2 X 10^3 (1.8-7.8); NEUTROPHILS % (AUTO) 73 % (42-75); PLATELET COUNT 284 10^3/uL (130-400); RED BLOOD COUNT 3.02 10^6/uL (4.35-5.85); RED CELL DISTRIBUTION WIDTH 19.7 % (10.0-14.5); WHITE BLOOD COUNT 9.9 10^3/uL (4.3-11.0)
[2016-09-22 07:07] LABS: ALANINE AMINOTRANSFERASE 35 U/L (0-55); ALBUMIN 2.5 G/DL (3.2-4.5); ANION GAP 8 MMOL/L (5-14); ASPARTATE AMINO TRANSFERASE 89 U/L (5-34); BILIRUBIN,TOTAL 0.9 MG/DL (0.1-1.0); BLOOD UREA NITROGEN 14 MG/DL (7-18); BUN/CREATININE RATIO 16; CALCIUM 8.4 MG/DL (8.5-10.1); CARBON DIOXIDE 21 MMOL/L (21-32); CHLORIDE 106 MMOL/L (98-107); GFR ESTIMATED > 60; GLUCOSE 95 MG/DL (70-105); POTASSIUM 5.3 MMOL/L (3.6-5.0); SODIUM 135 MMOL/L (135-145); TOTAL PROTEIN 6.9 G/DL (6.4-8.2)
[2016-09-22] MEDS: LEVOFLOXACIN 750 MG/D5W 150 ML PRE-MIX IV SCH (08:51)
[2016-09-22] MEDS: NS W/KCL 40 MEQ/L 1,000 ML IV SCH (08:51)
[2016-09-22] MEDS: FAMOTIDINE 20MG/2ML IV (PEPCID) IV SCH ×2 (08:51→22:15)
[2016-09-22] MEDS ORDERED: NS IV 1000 ML 1,000 ML ONE (10:27)
[2016-09-22] MEDS: NS IV 1000 ML 1,000 ML IV SCH (10:40)
[2016-09-22] MEDS ORDERED: TROUGH ORDER-PHARMACY XX NR (11:00)
[2016-09-22] MEDS ORDERED: [UNRECOGNIZED DRUG - REMARK] TOP NR (12:00)
--- NOTE | 2016-09-22 15:22 | Oncology Progress Note ---
Subjective Subjective/Events-last exam No new issues. On triple antibiotics day 2 Still feeling very weak. Fever down from 102 to 100.6 Data Review Labs Laboratory Tests 09/22/16 06:30 Laboratory Tests 09/20/16 11:09: White Blood Count 14.4H, Red Blood Count 2.86L, Hemoglobin 6.0*L, Hematocrit 22L , Mean Corpuscular Volume 76L, Mean Corpuscular Hemoglobin 21L, Mean Corpuscular Hemoglobin Concent 28L, Red Cell Distribution Width 20.7H, Neutrophils (%) (Auto) 80H, Lymphocytes (%) (Auto) 11L, Neutrophils # (Auto) 11.5H, Monocytes # (Auto) 1.4H, Prothrombin Time 16.5H, Activated Partial Thromboplast Time 38H, Potassium Level 3.2L, Glucose Level 116H, Iron Level <10L , Albumin 3.1L 09/20/16 13:33: Urine Specific [place] 1.025H, Urine Protein 2+H, Urine Leukocyte Esterase 1+H, Urine Crystals PRESENTH, Urine Amorphous Sediment LARGE SARA URATESH 09/20/16 15:22: 09/21/16 06:00: Red Blood Count 2.58L, Hemoglobin 5.3*L, Hematocrit 20*L, Mean Corpuscular Volume 76L, Mean Corpuscular Hemoglobin 21L, Mean Corpuscular Hemoglobin Concent 27L, Red Cell Distribution Width 20.3H, Neutrophils (%) (Auto) 79H, Neutrophils # (Auto) 8.4H, Potassium Level 3.5L, Glucose Level 106H, Albumin 2.6L, Sodium Level 134L, Blood Urea Nitrogen 19H, Calcium Level 8.4L, Aspartate Amino Transf (AST/SGOT) 60H, Alkaline Phosphatase 162H 09/22/16 06:30: Red Blood Count 3.02L, Hemoglobin 6.7#*L, Hematocrit 23L, Mean Corpuscular Volume 76L, Mean Corpuscular Hemoglobin 22L, Mean Corpuscular Hemoglobin Concent 29L, Red Cell Distribution Width 19.7H, Mean Platelet Volume 11.5H, Potassium Level 5.3H, Calcium Level 8.4L, Aspartate Amino Transf (AST/SGOT) 89H , Alkaline Phosphatase 199H, Albumin 2.5L 09/22/16 11:45: Vancomycin Level Trough 21.6H Physical Exam Vital Signs Vital Sign - Last 12Hours 09/20/16 09/20/16 10:46 15:02 Temp 100.0 Pulse 83 Resp 18 B/P (MAP) 140/71 Pulse Ox 98 O2 Delivery Room Air O2 Flow Rate 2.00 Capillary Refill : Less Than 3 Seconds General Appearance: No Apparent Distress, Other (comfortably sleeping) Impression & Plan Impression & Plan IMP: 1. Severe microcytic iron deficiency anemia. Hb 5-6 range, iron <10 and saturation <2%. s/p 2 units RBC transfusion 09/21/2016. Hb from 5.3 to 6.7 today. Still feeling very weak. 2. Bed bug and lice infection on treatment. 3. pneumonia and Staph bacteremia on Vancomycin, Zosyn and Levaquin 4. Morbid obese 5. Mild mental retardation. 6. Poor personal hygiene. Plan: 1. Will give 2 more units of RBC transfusion today to get her Hb above 8. Then consider IV iron since it will take time for iron to be effective. 2. She will need GI scope once her infection under control in both bed bug and staph 3. She will be a poor candidate for oral iron right now because of tolerance issues with so many things going on, specially GI track. 4. Continue on Protonix 40 mg po. 5. Stool occult blood if possible. Clinical Quality Measures DVT/VTE Risk/Contraindication: Risk Factor Score Per Nursin RFS Level Per Nursing on Admit: 4+=Very High GENESIS LINDSAY MD September 22, 2016 15:22
[2016-09-22] MEDS: LINDANE 1% SHAMPOO (KWELL) 60ML BTL TOP SCH (17:14)
--- NOTE | 2016-09-22 18:31 | Progress Note (SOAP) ---
Subjective Subjective/Events-last exam Patient feels much better this AM. She is not happy with CLD. Tolerating PO and ambulation. States that she still has her chronic abdominal pain but it has not changed. Date seen by provider: September 22, 2016 Time seen by provider: 10:45 Objective Exam Last Set of Vital Signs Vital Signs Date Time Temp Pulse Resp B/P (MAP) Pulse Ox O2 Delivery O2 Flow Rate FiO2 09/22/16 12:00 97.9 65 20 132/84 98 Room Air 09/21/16 18:37 2.00 Capillary Refill : Less Than 3 Seconds I&O Intake and Output 09/22/16 00:00 Intake Total 4643 ml Output Total 3350 ml Balance 1293 ml Intake Oral 2598 ml IV Total 1700 ml Other 345 ml Output Urine Total 3350 ml # Bowel Movements 1 General: Alert, Oriented X3, No Acute Distress Lungs: Clear to Auscultation, Normal Air Movement Heart: Regular Rate, No Murmurs Abdomen: Normal Bowel Sounds, Soft, No Hepatosplenomegaly, Other (+ epigastric tenderness) Extremities: No Edema, Normal Pulses, No Tenderness/Swelling Neuro: Strength at 5/5 X4 Ext, Sensation Intact, Cranial Nerves 3-12 NL Psych/Mental Status: Mental Status NL, Mood NL Results/Procedures Lab Laboratory Tests 09/22/16 06:30: White Blood Count 9.9, Red Blood Count 3.02L, Hemoglobin 6.7#*L, Hematocrit 23L , Mean Corpuscular Volume 76L, Mean Corpuscular Hemoglobin 22L, Mean Corpuscular Hemoglobin Concent 29L, Red Cell Distribution Width 19.7H, Platelet Count 284, Mean Platelet Volume 11.5H, Neutrophils (%) (Auto) 73, Lymphocytes (% ) (Auto) 19, Monocytes (%) (Auto) 7, Eosinophils (%) (Auto) 1, Basophils (%) ( Auto) 0, Neutrophils # (Auto) 7.2, Lymphocytes # (Auto) 1.9, Monocytes # (Auto) 0.7, Eosinophils # (Auto) 0.1, Basophils # (Auto) 0.0, Sodium Level 135, Potassium Level 5.3H, Chloride Level 106, Carbon Dioxide Level 21, Anion Gap 8, Blood Urea Nitrogen 14, Creatinine 0.90, Estimat Glomerular Filtration Rate > 60 , BUN/Creatinine Ratio 16, Glucose Level 95, Hemoglobin A1c 4.7, Calcium Level 8.4L, Total Bilirubin 0.9, Aspartate Amino Transf (AST/SGOT) 89H, Alanine Aminotransferase (ALT/SGPT) 35, Alkaline Phosphatase 199H, Total Protein 6.9, Albumin 2.5L 09/22/16 11:45: Vancomycin Level Trough 21.6H Microbiology 09/20/16 Blood Culture - Preliminary, Resulted No growth Radiology Date of Exam: 09/21/16 CHEST 1 VIEW, AP/PA ONLY Indication: Lower respiratory infection Portable chest 6:22 AM Heart size and pulmonary vascularity are normal. Lungs are clear. There are no effusions or pneumothoraces. Impression: Negative chest Assessment/Plan Assessment/Plan Plan 36 yo with mild retardation admitted for fever and severe anemia Plan Severe Microcytic Iron Deficiency Anemia possible GI loss vs infestation of bugs - Plan to due inpatient colonoscopy once infection is under control, Dr John consulted for scope on Tuesday, prep - Venefrer #1/3 given today - s/p 3 units pRBCs - Consult Hematology as patient was to see them this week outpatient Staph Bacteremia - Continue IV antibiotics at this time D2 - Tylenol and motrin to help control fever, fever curve improving Bed Bug and Lice infestation - Patient has been showered and treated, will continue to monitor - SW following case to help with home infestation Hyperkalemia -took potassium out of IVFs, repeat in AM FEN: CLD DVT PPX: SCDs, lovenox contraindicated at this time due to severe anemia Dispo: Admit to Med Surg, Inpatient Scope tuesday Social: SW consulted and following Diagnosis/Problems: Clinical Quality Measures DVT/VTE Risk/Contraindication: Risk Factor Score Per Nursin RFS Level Per Nursing on Admit: 4+=Very High IVELISSE ROWE MD September 22, 2016 18:30
[2016-09-22] MEDS: ACETAMINOPHEN 325 MG TABLET/CAPLET (TYLENOL) PO PRN (20:18)
[2016-09-22] MEDS ORDERED: NS IV 500 ML 500 ML ONE (20:55)
[2016-09-22] MEDS ORDERED: IRON SUCROSE INJECTION 300 MG in NS (IVPB) 250 ML IV NR (22:00)
[2016-09-22] MEDS: QUEtiapine 100 MG (SEROquel) TAB IMMEDIATE RELEASE PO SCH (22:15)
[2016-09-23] VITALS (7 sets, daily range): BP systolic 90–116; BP diastolic 57–76
[2016-09-23] MEDS: NS IV 1000 ML 1,000 ML IV SCH ×2 (03:51→14:32)
[2016-09-23] MEDS: VANCOMYCIN 1500 MG/NS 500 ML IVPB IV SCH ×2 (03:53)
[2016-09-23] MEDS: VENlafaxine 75 MG (EFFEXOR) TAB PO SCH (06:20)
[2016-09-23] MEDS: PIPERACILLIN/TAZOBACTAM 4.5 GM/NS 100 ML IVPB IV SCH ×2 (06:20)
[2016-09-23] MEDS: PANTOPRAZOLE 40 MG (PROTONIX) TAB PO SCH (06:20)
[2016-09-23 07:09] LABS: BASOPHILS # (AUTO) 0.1 10^3/uL (0.0-0.1); BASOPHILS % (AUTO) 1 % (0-10); EOSINOPHILS # (AUTO) 0.2 10^3/uL (0.0-0.3); EOSINOPHILS % (AUTO) 3 % (0-10); LYMPHOCYTES # (AUTO) 1.8 X 10^3 (1.0-4.0); LYMPHOCYTES % (AUTO) 20 % (12-44); MEAN CORPUSCULAR HEMOGLOBIN 23 PG (25-34); MEAN CORPUSCULAR HGB CONC 30 G/DL (32-36); MEAN CORPUSCULAR VOLUME 78 FL (80-99); MONOCYTES % (AUTO) 10 % (0-12); NEUTROPHILS # (AUTO) 6.3 X 10^3 (1.8-7.8); NEUTROPHILS % (AUTO) 67 % (42-75); PLATELET COUNT 311 10^3/uL (130-400); RED BLOOD COUNT 3.35 10^6/uL (4.35-5.85); RED CELL DISTRIBUTION WIDTH 19.6 % (10.0-14.5); WHITE BLOOD COUNT 9.4 10^3/uL (4.3-11.0)
[2016-09-23 07:25] LABS: ANION GAP 10 MMOL/L (5-14); BLOOD UREA NITROGEN 7 MG/DL (7-18); BUN/CREATININE RATIO 9; CALCIUM 8.8 MG/DL (8.5-10.1); CARBON DIOXIDE 21 MMOL/L (21-32); CHLORIDE 107 MMOL/L (98-107); CREATININE SERUM 0.75 MG/DL (0.60-1.30); GFR ESTIMATED > 60; GLUCOSE 90 MG/DL (70-105); POTASSIUM 3.5 MMOL/L (3.6-5.0); SODIUM 138 MMOL/L (135-145)
[2016-09-23] MEDS ORDERED: GOLYTELY POWDER 4000 ML BTL PO NR (08:00)
--- NOTE | 2016-09-23 08:26 | Progress Note-Hospitalist ---
Progress Note Progress Notes/Assess & Plan Date Seen 09/23/16 Diagonsis/Assessment & Plan Saumya was sleeping this morning and did not arouse. She appears to be in no acute distress and this is likely more of a behavioral issue. She not received any sedating medications. I strongly suspect that she heard everything that I had to say about the importance of drinking her prep so that we can get a good look and try to determine if there are any bleeding sites. She has a CT scan that suggests cecal filling abnormality. We will need to exclude a neoplastic process. She is been afebrile her vital signs are stable and so we'll plan on proceeding with colonoscopy in the morning. Her hemoglobin is up to 7.9 after receiving blood yesterday. Final Diagnosis 1. Iron deficiency anemia combination of likely GI bleed with previously normal EGD and cecal out her malady on CT scanning. 2. Bedbug infestation heavy enough that it is likely contributing iron deficiency anemia as well patient is status post parasitic treatment and no living bedbugs have been seen by staff. TOO JACKOSN MD September 23, 2016 08:26
[2016-09-23] MEDS: FAMOTIDINE 20MG/2ML IV (PEPCID) IV SCH ×2 (09:46→20:50)
[2016-09-23] MEDS: LEVOFLOXACIN 750 MG/D5W 150 ML PRE-MIX IV SCH (10:20)
[2016-09-23] MEDS ORDERED: TROUGH ORDER-PHARMACY XX NR (14:00)
--- NOTE | 2016-09-23 15:24 | Progress Note (SOAP) ---
Subjective Subjective/Events-last exam Resting comfortably this AM. No concerns this AM. Tolerating PO diet and ambulation Date seen by provider: September 23, 2016 Objective Exam Last Set of Vital Signs Vital Signs Date Time Temp Pulse Resp B/P (MAP) Pulse Ox O2 Delivery O2 Flow Rate FiO2 09/23/16 12:00 99.4 63 20 90/62 98 09/23/16 07:46 Room Air 09/21/16 18:37 2.00 Capillary Refill : Less Than 3 Seconds I&O Intake and Output 09/23/16 00:00 Intake Total 2940 ml Output Total 1400 ml Balance 1540 ml Intake Oral 1910 ml IV Total 1030 ml Output Urine Total 1400 ml # Voids 2 # Bowel Movements 1 General: Alert, Oriented X3, Cooperative Lungs: Clear to Auscultation Heart: Regular Rate, No Murmurs Extremities: No Tenderness/Swelling Neuro: Strength at 5/5 X4 Ext, Sensation Intact Psych/Mental Status: Mood NL Results/Procedures Lab Laboratory Tests 09/23/16 07:00: White Blood Count 9.4, Red Blood Count 3.35L, Hemoglobin 7.8L, Hematocrit 26L, Mean Corpuscular Volume 78L, Mean Corpuscular Hemoglobin 23L, Mean Corpuscular Hemoglobin Concent 30L, Red Cell Distribution Width 19.6H, Platelet Count 311, Mean Platelet Volume 11.0H, Neutrophils (%) (Auto) 67, Lymphocytes (%) (Auto) 20 , Monocytes (%) (Auto) 10, Eosinophils (%) (Auto) 3, Basophils (%) (Auto) 1, Neutrophils # (Auto) 6.3, Lymphocytes # (Auto) 1.8, Monocytes # (Auto) 1.0, Eosinophils # (Auto) 0.2, Basophils # (Auto) 0.1, Sodium Level 138, Potassium Level 3.5L, Chloride Level 107, Carbon Dioxide Level 21, Anion Gap 10, Blood Urea Nitrogen 7, Creatinine 0.75, Estimat Glomerular Filtration Rate > 60, BUN/ Creatinine Ratio 9, Glucose Level 90, Calcium Level 8.8 09/23/16 15:08: Microbiology 09/20/16 Blood Culture - Preliminary, Resulted No growth Radiology Date of Exam: 09/21/16 CHEST 1 VIEW, AP/PA ONLY Indication: Lower respiratory infection Portable chest 6:22 AM Heart size and pulmonary vascularity are normal. Lungs are clear. There are no effusions or pneumothoraces. Impression: Negative chest Assessment/Plan Assessment/Plan Plan 36 yo with mild retardation admitted for fever and severe anemia Plan Severe Microcytic Iron Deficiency Anemia possible GI loss vs infestation of bugs - Plan to due inpatient colonoscopy once infection is under control, Dr John consulted for scope on Tuesday, prep - Venefrer #1/3 given today - s/p 4 units pRBCs - Hematology following patient Staph Bacteremia - Vanc D3, antibiotics narrowed today - Tylenol and motrin to help control fever, fever curve improving Bed Bug and Lice infestation - Patient has been showered and treated, will continue to monitor - SW following case to help with home infestation Elevated LFTs - Will continue to monitor FEN: CLD DVT PPX: SCDs, lovenox contraindicated at this time due to severe anemia Dispo: Admit to Med Surg, Inpatient Scope tuesday Social: SW consulted and following Diagnosis/Problems: Clinical Quality Measures DVT/VTE Risk/Contraindication: Risk Factor Score Per Nursin RFS Level Per Nursing on Admit: 4+=Very High IVELISSE ROWE MD September 23, 2016 15:24
--- NOTE | 2016-09-23 17:39 | Oncology Progress Note ---
Subjective Subjective/Events-last exam Feeling better. In bowel prep today for GI scope tomorrow. Want to go home after the procedure. Data Review Labs Laboratory Tests 09/23/16 07:00 Laboratory Tests 09/21/16 06:00: Red Blood Count 2.58L, Hemoglobin 5.3*L, Hematocrit 20*L, Mean Corpuscular Volume 76L, Mean Corpuscular Hemoglobin 21L, Mean Corpuscular Hemoglobin Concent 27L, Red Cell Distribution Width 20.3H, Neutrophils (%) (Auto) 79H, Neutrophils # (Auto) 8.4H, Sodium Level 134L, Potassium Level 3.5L, Blood Urea Nitrogen 19H, Glucose Level 106H, Calcium Level 8.4L, Aspartate Amino Transf ( AST/SGOT) 60H, Alkaline Phosphatase 162H, Albumin 2.6L 09/22/16 06:30: Red Blood Count 3.02L, Hemoglobin 6.7#*L, Hematocrit 23L, Mean Corpuscular Volume 76L, Mean Corpuscular Hemoglobin 22L, Mean Corpuscular Hemoglobin Concent 29L, Red Cell Distribution Width 19.7H, Potassium Level 5.3H, Calcium Level 8.4L, Aspartate Amino Transf (AST/SGOT) 89H, Alkaline Phosphatase 199H, Albumin 2.5L, Mean Platelet Volume 11.5H 09/22/16 11:45: Vancomycin Level Trough 21.6H 09/23/16 07:00: Red Blood Count 3.35L, Hemoglobin 7.8L, Hematocrit 26L, Mean Corpuscular Volume 78L, Mean Corpuscular Hemoglobin 23L, Mean Corpuscular Hemoglobin Concent 30L, Red Cell Distribution Width 19.6H, Potassium Level 3.5L, Mean Platelet Volume 11.0H 09/23/16 15:08: Vancomycin Level Trough 22.9H 09/23/16 16:24: Physical Exam Vital Signs Vital Sign - Last 12Hours 09/20/16 09/20/16 10:46 15:02 Temp 100.0 Pulse 83 Resp 18 B/P (MAP) 140/71 Pulse Ox 98 O2 Delivery Room Air O2 Flow Rate 2.00 Capillary Refill : Less Than 3 Seconds General Appearance: No Apparent Distress, Other (obese. She is up to the chair. She smiles) Impression & Plan Impression & Plan IMP: 1. Severe microcytic iron deficiency anemia. Hb 5-6 range, iron <10 and saturation <2%. s/p 2 units RBC transfusion 09/21/2016. Hb from 5.3 to 6.7, then two more units yesterday Hb up to 7.8. She is feeling better. 2. Bed bug and lice infection on treatment. 3. pneumonia and Staph bacteremia on Vancomycin, Zosyn and Levaquin 4. Morbid obese 5. Mild mental retardation. 6. Poor personal hygiene. Plan: 1. GI scope tomorrow. 2. She got a dose of IV iron Venofer today. I can hold off RBC transfusion for now. 3. She will be a poor candidate for oral iron right now because of tolerance issues with so many things going on, specially GI track. 4. Continue on Protonix 40 mg po. 5. In term of her discharge plan and follow up with me. I would have to check out with cancer center policy since we are not sure of her bed bug and lice situation at home. Cancer center patients are most immunocompromised and can not take the risk. Clinical Quality Measures DVT/VTE Risk/Contraindication: Risk Factor Score Per Nursin RFS Level Per Nursing on Admit: 4+=Very High GENESIS LINDSAY MD September 23, 2016 17:39
[2016-09-23] MEDS: QUEtiapine 100 MG (SEROquel) TAB IMMEDIATE RELEASE PO SCH (20:50)
[2016-09-24] VITALS (7 sets, daily range): BP systolic 90–127; BP diastolic 59–77
[2016-09-24] MEDS ORDERED: TROUGH ORDER-PHARMACY XX NR (06:00)
[2016-09-24] MEDS: PANTOPRAZOLE 40 MG (PROTONIX) TAB PO SCH (06:46)
[2016-09-24] MEDS: VENlafaxine 75 MG (EFFEXOR) TAB PO SCH (06:46)
[2016-09-24 07:15] LABS: BASOPHILS # (AUTO) 0.1 10^3/uL (0.0-0.1); BASOPHILS % (AUTO) 1 % (0-10); EOSINOPHILS # (AUTO) 0.3 10^3/uL (0.0-0.3); EOSINOPHILS % (AUTO) 3 % (0-10); LYMPHOCYTES # (AUTO) 1.8 X 10^3 (1.0-4.0); LYMPHOCYTES % (AUTO) 24 % (12-44); MEAN CORPUSCULAR HEMOGLOBIN 23 PG (25-34); MEAN CORPUSCULAR HGB CONC 30 G/DL (32-36); MEAN CORPUSCULAR VOLUME 79 FL (80-99); MEAN PLATELET VOLUME 10.9 FL (7.4-10.4); MONOCYTES # (AUTO) 0.8 X 10^3 (0.0-1.0); MONOCYTES % (AUTO) 11 % (0-12); NEUTROPHILS # (AUTO) 4.6 X 10^3 (1.8-7.8); NEUTROPHILS % (AUTO) 62 % (42-75); PLATELET COUNT 354 10^3/uL (130-400); RED BLOOD COUNT 3.71 10^6/uL (4.35-5.85); RED CELL DISTRIBUTION WIDTH 20.2 % (10.0-14.5); WHITE BLOOD COUNT 7.5 10^3/uL (4.3-11.0)
[2016-09-24 07:35] LABS: ANION GAP 9 MMOL/L (5-14); BLOOD UREA NITROGEN 5 MG/DL (7-18); BUN/CREATININE RATIO 7; CALCIUM 9.2 MG/DL (8.5-10.1); CARBON DIOXIDE 23 MMOL/L (21-32); CHLORIDE 107 MMOL/L (98-107); CREATININE SERUM 0.75 MG/DL (0.60-1.30); GFR ESTIMATED > 60; GLUCOSE 85 MG/DL (70-105); POTASSIUM 3.6 MMOL/L (3.6-5.0); SODIUM 139 MMOL/L (135-145)
[2016-09-24] MEDS ORDERED: FLEET ENEMA ADULT 1 EA BTL PR NR ×2 (08:19→09:00)
[2016-09-24] MEDS: FAMOTIDINE 20MG/2ML IV (PEPCID) IV SCH ×2 (08:38→20:20)
[2016-09-24] MEDS: VANCOMYCIN INJECTION 2,000 MG in NS IV 500 ML 500 ML IV SCH (08:38)
[2016-09-24] MEDS: NS IV 1000 ML 1,000 ML IV SCH (08:39)
[2016-09-24] MEDS ORDERED: LIDOCAINE PF 2% 10 ML (XYLOCAINE) AMP ONE (10:19)
[2016-09-24] MEDS ORDERED: proPOfol 200 MG/20 ML (DIPRIVAN) VIAL IV ONE ×2 (10:19→11:06)
[2016-09-24] MEDS ORDERED: MIDAZOLAM 2 MG/2 ML (VERSED) VIAL ONE (10:20)
[2016-09-24] MEDS ORDERED: NS IV 1000 ML 1,000 ML ONE (10:33)
[2016-09-24] MEDS ORDERED: NS IV 1000 ML 1,000 ML IV PRN (10:40)
--- NOTE | 2016-09-24 12:42 | Progress Note-Hospitalist ---
Progress Note Progress Notes/Assess & Plan Date Seen 09/24/16 Diagonsis/Assessment & Plan Saumya underwent colonoscopy this morning which revealed 6 adenomatous- appearing polyps largest measuring 0.5 x 1.5 cm. All had a benign adenomatous appearance. There is no evidence for blood in the colon. The cecum did not reveal any significant abnormalities other than lipomatous hypertrophy of the ileocecal valve. I suspect either this or combination with stool responsible for CT findings. She may resume a regular diet. A full copy of the procedural report will follow. When histopathology evaluation is complete we'll make recommendations for future surveillance colonoscopy. Would advise continued by mouth iron on discharge. We'll sign off unless reconsulted. Sincerely, Too Jackson M.D. TOO JACKSON MD September 24, 2016 12:42
[2016-09-24] MEDS ORDERED: IRON SUCROSE INJECTION 300 MG in NS (IVPB) 250 ML IV NR (14:45)
--- NOTE | 2016-09-24 15:33 | Oncology Progress Note ---
Subjective Subjective/Events-last exam Pt had colonoscopy today and comfortable sleeping now. A few polyps noticed but active source of bleeding Stool occult blood +, possible upper GI bleeding Pt may go home over the weekend. Data Review Labs Laboratory Tests 09/24/16 06:58 Laboratory Tests 09/22/16 06:30: Red Blood Count 3.02L, Hemoglobin 6.7#*L, Hematocrit 23L, Mean Corpuscular Volume 76L, Mean Corpuscular Hemoglobin 22L, Mean Corpuscular Hemoglobin Concent 29L, Red Cell Distribution Width 19.7H, Mean Platelet Volume 11.5H, Potassium Level 5.3H, Calcium Level 8.4L, Aspartate Amino Transf (AST/SGOT) 89H , Alkaline Phosphatase 199H, Albumin 2.5L 09/22/16 11:45: Vancomycin Level Trough 21.6H 09/23/16 07:00: Red Blood Count 3.35L, Hemoglobin 7.8L, Hematocrit 26L, Mean Corpuscular Volume 78L, Mean Corpuscular Hemoglobin 23L, Mean Corpuscular Hemoglobin Concent 30L, Red Cell Distribution Width 19.6H, Mean Platelet Volume 11.0H, Potassium Level 3.5L 09/23/16 15:08: Vancomycin Level Trough 22.9H 09/23/16 16:24: 09/24/16 06:58: Red Blood Count 3.71L, Hemoglobin 8.6L, Hematocrit 29L, Mean Corpuscular Volume 79L, Mean Corpuscular Hemoglobin 23L, Mean Corpuscular Hemoglobin Concent 30L, Red Cell Distribution Width 20.2H, Mean Platelet Volume 10.9H, Blood Urea Nitrogen 5L Laboratory Tests 09/24/16 06:58 Physical Exam Vital Signs Vital Sign - Last 12Hours 09/20/16 09/20/16 10:46 15:02 Temp 100.0 Pulse 83 Resp 18 B/P (MAP) 140/71 Pulse Ox 98 O2 Delivery Room Air O2 Flow Rate 2.00 Capillary Refill : Less Than 3 Seconds General Appearance: No Apparent Distress Respiratory: No Accessory Muscle Use, No Respiratory Distress Impression & Plan Impression & Plan IMP: 1. Severe microcytic iron deficiency anemia. Hb 5-6 range, iron <10 and saturation <2%. s/p 4 units RBC transfusion 09/21/2016 and 09/22/16. Hb is up to 5.3 to 8.6 proper response to transfusion. She is feeling much better. 2. Bed bug and lice infection on treatment. 3. pneumonia and Staph bacteremia on Vancomycin, Zosyn and Levaquin 4. Morbid obese 5. Mild mental retardation. 6. Poor personal hygiene. Plan: 1. Pt can be discharged from Hematology point of view. 2. Finish her IV iron Venofer 3/3 treatment before discharge 3. She will be a poor candidate for oral iron because of stomach irritation and recent GI bleeding. 4. Continue on Protonix 40 mg po when discharge home and stay on for 3 months and then off. 5. In term of her discharge plan and follow up with me. Since we are not sure of her bed bug and lice situation at home, it would be too risky to bring her back to cancer for follow up because of cancer center patients are most immunocompromised and can not take the risk. I will be happy to guide the primary physician at the community clinic for follow up over there. 6. mud car worker to help for disinfestation of bed bugs and lice at her home. Clinical Quality Measures DVT/VTE Risk/Contraindication: Risk Factor Score Per Nursin RFS Level Per Nursing on Admit: 4+=Very High GENESIS LINDSAY MD September 24, 2016 15:33
--- NOTE | 2016-09-24 18:10 | Progress Note (SOAP) ---
Subjective Subjective/Events-last exam Patient back from colonoscopy. No new concerns today. Denies chest pain, shortness of breath, or abdominal pain. Date seen by provider: September 24, 2016 Objective Exam Last Set of Vital Signs Vital Signs Date Time Temp Pulse Resp B/P (MAP) Pulse Ox O2 Delivery O2 Flow Rate FiO2 09/24/16 12:00 97.4 59 18 104/71 99 1.50 09/23/16 07:46 Room Air Capillary Refill : Less Than 3 Seconds I&O Intake and Output 09/24/16 00:00 Intake Total 3975 ml Output Total 400 ml Balance 3575 ml Intake Oral 2095 ml IV Total 1880 ml Output Urine Total 400 ml # Voids 5 # Bowel Movements 1 General: Alert, Oriented X3, Cooperative Lungs: Clear to Auscultation, Normal Air Movement Heart: Regular Rate, No Murmurs Abdomen: Normal Bowel Sounds, Soft, No Tenderness, No Hepatosplenomegaly, No Masses Extremities: Normal Pulses, No Tenderness/Swelling Results/Procedures Lab Laboratory Tests 09/24/16 06:58: White Blood Count 7.5, Red Blood Count 3.71L, Hemoglobin 8.6L, Hematocrit 29L, Mean Corpuscular Volume 79L, Mean Corpuscular Hemoglobin 23L, Mean Corpuscular Hemoglobin Concent 30L, Red Cell Distribution Width 20.2H, Platelet Count 354, Mean Platelet Volume 10.9H, Neutrophils (%) (Auto) 62, Lymphocytes (%) (Auto) 24 , Monocytes (%) (Auto) 11, Eosinophils (%) (Auto) 3, Basophils (%) (Auto) 1, Neutrophils # (Auto) 4.6, Lymphocytes # (Auto) 1.8, Monocytes # (Auto) 0.8, Eosinophils # (Auto) 0.3, Basophils # (Auto) 0.1, Sodium Level 139, Potassium Level 3.6, Chloride Level 107, Carbon Dioxide Level 23, Anion Gap 9, Blood Urea Nitrogen 5L, Creatinine 0.75, Estimat Glomerular Filtration Rate > 60, BUN/ Creatinine Ratio 7, Glucose Level 85, Calcium Level 9.2, Serum Test, Qualitative NEGATIVE, Vancomycin Level Trough 10.9 09/24/16 17:05: Lab Scanned Report Transfusion Reaction Form Microbiology 09/20/16 Blood Culture - Preliminary, Resulted No growth Radiology Date of Exam: 09/21/16 CHEST 1 VIEW, AP/PA ONLY Indication: Lower respiratory infection Portable chest 6:22 AM Heart size and pulmonary vascularity are normal. Lungs are clear. There are no effusions or pneumothoraces. Impression: Negative chest Assessment/Plan Assessment/Plan Plan 36 yo with mild retardation admitted for fever and severe anemia Plan Severe Microcytic Iron Deficiency Anemia possible GI loss vs infestation of bugs - Colonoscopy with multiple polyps removed, no active bleeding - Venefrer #3/3 given today - s/p 4 units pRBCs - Hematology following patient and will be happy to help guide therapy by PCP as she would be a risk to cancer patients in clinic Staph Bacteremia - Vanc D4, Will transition to PO in AM in preparation for discharge Bed Bug and Lice infestation - Patient has been showered and treated, will continue to monitor - SW following case to help with home infestation Elevated LFTs - Will continue to monitor FEN: Reg diet DVT PPX: SCDs, lovenox contraindicated at this time due to severe anemia Dispo: Admit to Med Surg, plan for d/c tomorrow Social: SW consulted and following Diagnosis/Problems: Clinical Quality Measures DVT/VTE Risk/Contraindication: Risk Factor Score Per Nursin RFS Level Per Nursing on Admit: 4+=Very High IVELISSE ROWE MD September 24, 2016 18:10
[2016-09-24] MEDS: QUEtiapine 100 MG (SEROquel) TAB IMMEDIATE RELEASE PO SCH (20:19)
[2016-09-25] MEDS: PANTOPRAZOLE 40 MG (PROTONIX) TAB PO SCH (06:25)
[2016-09-25] MEDS: VENlafaxine 75 MG (EFFEXOR) TAB PO SCH (06:25)
[2016-09-25] MEDS ORDERED: TROUGH ORDER-PHARMACY XX NR (07:00)
[2016-09-25 07:28] LABS: BASOPHILS % (AUTO) 0 % (0-10); EOSINOPHILS # (AUTO) 0.1 10^3/uL (0.0-0.3); EOSINOPHILS % (AUTO) 2 % (0-10); LYMPHOCYTES # (AUTO) 1.7 X 10^3 (1.0-4.0); LYMPHOCYTES % (AUTO) 25 % (12-44); MEAN CORPUSCULAR HEMOGLOBIN 23 PG (25-34); MEAN CORPUSCULAR HGB CONC 29 G/DL (32-36); MEAN CORPUSCULAR VOLUME 81 FL (80-99); MEAN PLATELET VOLUME 10.5 FL (7.4-10.4); MONOCYTES # (AUTO) 0.8 X 10^3 (0.0-1.0); MONOCYTES % (AUTO) 11 % (0-12); NEUTROPHILS # (AUTO) 4.3 X 10^3 (1.8-7.8); NEUTROPHILS % (AUTO) 62 % (42-75); PLATELET COUNT 366 10^3/uL (130-400); RED CELL DISTRIBUTION WIDTH 21.3 % (10.0-14.5); WHITE BLOOD COUNT 6.9 10^3/uL (4.3-11.0)
[2016-09-25 07:46] LABS: ANION GAP 9 MMOL/L (5-14); BLOOD UREA NITROGEN 5 MG/DL (7-18); BUN/CREATININE RATIO 7; CALCIUM 8.9 MG/DL (8.5-10.1); CARBON DIOXIDE 23 MMOL/L (21-32); CHLORIDE 108 MMOL/L (98-107); CREATININE SERUM 0.72 MG/DL (0.60-1.30); GFR ESTIMATED > 60; GLUCOSE 101 MG/DL (70-105); POTASSIUM 3.6 MMOL/L (3.6-5.0); SODIUM 140 MMOL/L (135-145)
--- NOTE | 2016-09-25 07:51 | Oncology Progress Note ---
Subjective Subjective/Events-last exam No new issues over night May go home today. Uncertain of her home situation of bed bug and lice Data Review Labs Laboratory Tests 09/25/16 07:20 Laboratory Tests 09/22/16 11:45: Vancomycin Level Trough 21.6H 09/23/16 07:00: Red Blood Count 3.35L, Hemoglobin 7.8L, Hematocrit 26L, Mean Corpuscular Volume 78L, Mean Corpuscular Hemoglobin 23L, Mean Corpuscular Hemoglobin Concent 30L, Red Cell Distribution Width 19.6H, Mean Platelet Volume 11.0H, Potassium Level 3.5L 09/23/16 15:08: Vancomycin Level Trough 22.9H 09/23/16 16:24: 09/24/16 06:58: Red Blood Count 3.71L, Hemoglobin 8.6L, Hematocrit 29L, Mean Corpuscular Volume 79L, Mean Corpuscular Hemoglobin 23L, Mean Corpuscular Hemoglobin Concent 30L, Red Cell Distribution Width 20.2H, Mean Platelet Volume 10.9H, Blood Urea Nitrogen 5L 09/24/16 17:05: 09/25/16 07:20: Red Blood Count 3.50L, Hemoglobin 8.2L, Hematocrit 28L, Mean Corpuscular Hemoglobin 23L, Mean Corpuscular Hemoglobin Concent 29L, Red Cell Distribution Width 21.3H, Mean Platelet Volume 10.5H Physical Exam Vital Signs Vital Sign - Last 12Hours 09/20/16 09/20/16 10:46 15:02 Temp 100.0 Pulse 83 Resp 18 B/P (MAP) 140/71 Pulse Ox 98 O2 Delivery Room Air O2 Flow Rate 2.00 Capillary Refill : Less Than 3 Seconds General Appearance: No Apparent Distress, Other (sound sleep) Impression & Plan Impression & Plan IMP: 1. Severe microcytic iron deficiency anemia. Hb 5-6 range, iron <10 and saturation <2%. s/p 4 units RBC transfusion 09/21/2016 and 09/22/16. Hb is up to 5.3 to 8.6 proper response to transfusion. She is feeling much better. 2. Bed bug and lice infection on treatment. 3. pneumonia and Staph bacteremia on Vancomycin, Zosyn and Levaquin 4. Morbid obese 5. Mild mental retardation. 6. Poor personal hygiene. Plan: 1. Pt can be discharged from Hematology point of view. 2. Finish her IV iron Venofer 3/3 treatment before discharge. You can start oral iron 2 weeks later as out-pt once her stomach situation better and upper GI bleeding stopped. You want to achieve serum iron close to 100 and then stop oral iron 3. Need to figure out her home situation to prevent the infestation again. 4. Continue on Protonix 40 mg po when discharge home and stay on for 3 months and then off. 5. In term of her discharge plan and follow up with me. Since we are not sure of her bed bug and lice situation at home, it would be too risky to bring her back to cancer for follow up because of cancer center patients are most immunocompromised and can not take the risk. I will be happy to guide the primary physician at the community clinic for follow up over there. Clinical Quality Measures DVT/VTE Risk/Contraindication: Risk Factor Score Per Nursin RFS Level Per Nursing on Admit: 4+=Very High GENESIS LINDSAY MD September 25, 2016 07:51
[2016-09-25] MEDS: VANCOMYCIN INJECTION 2,000 MG in NS IV 500 ML 500 ML IV SCH (07:58)
[2016-09-25 08:00] VITALS: BP 117/78
[2016-09-25] MEDS ORDERED: IRON SUCROSE INJECTION 300 MG in NS (IVPB) 250 ML IV NR (08:00)
[2016-09-25] MEDS: FAMOTIDINE 20MG/2ML IV (PEPCID) IV SCH (10:12)
[2016-09-25] MEDS: NS IV 1000 ML 1,000 ML IV SCH (10:12)
--- NOTE | 2016-09-25 10:45 | Discharge Summary ---
Diagnosis/Chief Complaint Date of Admission September 20, 2016 at 14:27 Date of Discharge 09/25/2016 Admission Diagnosis Admission Diagnosis Severe Iron Deficiency Anemia Staph Bacteremia Elevated LFTs Bed Bug and Lice infestation Discharge Diagnosis See Above Chief Complaint/HPI Chief Complaint/HPI 36 yo F that was admitted for severe anemia requiring transfusion. She was brought in by her mother for increased shortness of breath and fatigue. Patient states that she also has a pain in her stomach in which she sees [facility] for. She has a severe infestation of bed bugs and lice on admission. Very poor hygiene. Otherwise has not other complaints this AM. She is asking why she feels so bad all the time. Primary cattle care worker is her mother and sister. Mother recently admitted a few weeks ago and sister is currently admitted for abscess with I&D. Discharge Summary-Simple/Stand Procedures - Inpatient Colonoscopy: Multiple polyp removal, pathology pending Consultations Dr John: Colonoscopy Hematology: Dr Munoz Discharge Physical Examination Allergies: Coded Allergies: pseudoephedrine (Verified Allergy, Unknown, 09/24/16) Vitals & I&Os Vital Sign - Last 12Hours Date Time Temp Pulse Resp B/P (MAP) Pulse Ox O2 Delivery O2 Flow Rate FiO2 09/25/16 08:00 97.6 62 20 117/78 93 09/24/16 12:00 1.50 09/23/16 07:46 Room Air Intake and Output 09/25/16 00:00 Intake Total 1620 ml Output Total 5 ml Balance 1615 ml General Appearance: Alert, Oriented X3, Cooperative, No Acute Distress HEENT: Atraumatic, PERRLA, EOMI, Mucous Memb Moist/[place] Walk Respiratory: Clear to Auscultation, Normal Air Movement Cardiovascular: Regular Rate, No Murmurs Abdominal: Normal Bowel Sounds, Soft, No Tenderness, No Hepatosplenomegaly Extremities: No Edema, No Tenderness/Swelling Skin: Other (Chronic skin changes on arm and legs from infestation) Neuro: Normal Gait, Normal Speech, Strength at 5/5 X4 Ext, Sensation Intact, Cranial Nerves 3-12 NL Psych/Mental Status: Mental Status NL, Mood NL Hospital Course See final discharge diagnosis. Pending Labs Polyp Pathology pending from colonoscopy Radiology Reviewed Date of Exam: 09/21/16 CHEST 1 VIEW, AP/PA ONLY Indication: Lower respiratory infection Portable chest 6:22 AM Heart size and pulmonary vascularity are normal. Lungs are clear. There are no effusions or pneumothoraces. Impression: Negative chest Discussion & Recommendations 36 yo F that was admitted for severe anemia and shortness of breath Severe Iron Deficiency Anemia: Iron level was undetectable. Patient with some mild retardation and poor family support, previous poor prep for colonoscopy. Decision was to keep patient for inpatient colon prep for Dr John to perform colonoscopy. Patient received 4 units of blood during admission for admit Hgb level of 5.2. Iron replacement of Venofer 900 during admission. Patient had + Hemoccult testing. Recent EGD last year that was normal. Hematology consulted and will plan to coordinate care with PCP. They are worried about the risk to cancer patients by seeing her in clinic. Hold off on PO iron replacement for now. Repeat iron levels in 6 weeks and replace IV if needed. Discussed with patient the likelihood that this was caused by severe bed bug infestation. Adult protective services were contacted and DFS is going to try and assist family in extermination. Staph Bacteremia: Patient fever curve improved by time of discharge. Staph was cornejo sensitive. She was d/c home with PO antibiotics. Elevated LFTs: will need outpatient follow up to trend levels Bed Bug and Lice infestation: See above Discharge Condition at discharge Stable Instructions to patient/family Please see electonic discharge instructions given to patient. Discharge Medications Reviewed and agree with Discharge Medication list on patient's Discharge Instruction sheet Clinical Quality Measures DVT/VTE Risk/Contraindication: Risk Factor Score Per Nursin RFS Level Per Nursing on Admit: 4+=Very High Copy Copies To 1: SINAN QUINONES MD, HOLLY R MD September 25, 2016 10:45
[2016-09-25] MEDS ORDERED: SULF1TAB35 PO (10:47)
[2016-09-25] MEDS ORDERED: PANT40TA3 PO (10:47)
--- NOTE | 2016-09-25 10:50 | Discharge Instructions ---
Discharge [facility] Discharge Medications New, Converted or Re-Newed RX: Transmitted to Pharmacy New Medications: Sulfamethoxazole/Trimethoprim (Bactrim Ds Tablet) 1 Each Tablet 1 EACH PO BID for 10 Days, #20 TAB Pantoprazole Sodium (Pantoprazole Sodium) 40 Mg Tablet.dr 40 MG PO DAILY@0700, #30 TAB Continued Medications: Hydrocodone/Ibuprofen (Hydrocodone-Ibuprofen 7.5-200) 1 Each Tablet 1 EACH PO Q6H PRN for PAIN, TAB Quetiapine Fumarate (Quetiapine Fumarate) 100 Mg Tablet 100 MG PO HS Venlafaxine HCl (Venlafaxine HCl) 75 Mg Tab 75 MG PO HS LAST FILLED 08/06/16 #60 Discontinued Medications: Ferrous Sulfate (Ferrous Sulfate) 325 Mg Tablet 325 MG PO BID Patient Instructions Goal/Follow Up Appt: You have a follow up appt on October 01 @ 2pm with Dr Quinones Patient Instructions: - It is very important that you and your family get the bed bugs and lice treated as this is likely causing your anemia and making you very sick. - Make sure that you complete your antibioitcs Return to [facility] For: - Unable to tolerate antibiotics - Shortness of breath - Chest pain Activity & Diet Discharge Diet: No Restrictions Activity as Tolerated: Yes Orders-Post D/C & Referrals Pneu Vac Indicated: Yes Copy Copies To 1: SINAN QUINONES MD, HOLLY R MD September 25, 2016 10:50
[2016-09-25] MEDS ORDERED: VANCOMYCIN 500 MG/NS 100 ML IVPB IV NR ×2 (20:00)
--- NOTE | 2016-09-25 20:28 | OPERATIVE REPORT ---
DATE OF SERVICE: 09/24/2016 COLONOSCOPY INDICATIONS: Colonoscopy was performed for iron deficiency anemia with abnormal CT findings involving questionable mass on the cecum. The patient was placed in the left lateral decubitus position. Prior to undergoing colonoscopy, digital rectal evaluation was performed. Anal sphincter tone was normal. Perianal reflexes intact. No evidence for internal or external hemorrhoids. The colonoscope was then inserted into the rectum and under direct visualization advanced into the cecum. The cecum was identified by identification of the ileocecal valve and the cecal strap. Photographic documentation was obtained. Careful inspection was made as the scope was withdrawn. The quality of the prep was suboptimal. FINDINGS: There was no evidence for internal or external hemorrhoids. The rectum was unremarkable. Six adenomatous-appearing polyps were removed today. The first one being noted in the proximal sigmoid colon that was 3 x 4 mm and was biopsied and ablated with no subsequent blood loss. The second polyp was noted in the distal descending colon was 5 mm x 1.5 mm in size, the largest polyps removed. A diminutive was noted in the proximal descending colon that was biopsied, ablated and submitted for histopathology. Similar polyps were removed from the proximal transverse colon and 2 adjacent polyps were removed from the proximal transverse colon and one proximal ascending colon polyp was removed. Again no significant blood loss was identified. The cecum was unremarkable in appearance. There was significant lipomatous hypertrophy of the ileocecal valve, which is otherwise unremarkable. ASSESSMENT: Six adenomatous-appearing polyps were noted and removed today. There was no evidence for blood in the colon. The largest polyp measured .5 cm x 1.5 cm in size from the distal descending colon. I suspect that abnormal CT findings were combination of stool and/or significant lipomatous hypertrophy of the ileocecal valve. We will await on histopath report before making recommendations for future surveillance colonoscopy. Job ID: [id number] DocumentID: [id number] Dictated Date: 09/24/2016 11:32:50 Scrap Yard Worker Date: 09/25/2016 04:41:13 Dictated By: TOO JACKSON MD [facility]
[2016-09-26] MEDS ORDERED: VANCOMYCIN 1250 MG/NS 250 ML IVPB IV SCH ×2 (07:00)
[2016-09-27] MEDS ORDERED: TROUGH ORDER-PHARMACY XX NR (07:00)
--- NOTE | 2016-09-29 09:03 | OPERATIVE REPORT ---
DATE OF SERVICE: 09/24/2016 FOLLOWUP PATHOLOGY REPORT SURVEILLANCE COLONOSCOPY RECOMMENDATION: She underwent colonoscopy on 09/24 and had 6 small adenomatous-appearing polyps. All of them turned out to be tubular adenomas, the lowest risk adenoma from developing into malignancy risk. As long as there is no family history for colon cancer, especially early colon cancer prior to the age of 50, would advocate to consideration for a repeat surveillance colonoscopy in 5 years. Job ID: [id number] DocumentID: [id number] Dictated Date: 09/28/2016 08:15:19 Can Slider Date: 09/28/2016 17:12:27 Dictated By: TOO JACKSON MD
== END 2016-09-25 13:25 | disposition home or self-care (01) | DRG 811 ==
LOC: EDUNIT# 10:46 → ER 10:51 → 4TH 14:27
PROVIDERS: ADMIT Family Medicine; ATTEND Family Medicine
PROC: 0DBM8ZX Excision of Descending Colon, Via Natural or Artificial Opening Endoscopic, Diagnostic (ICD-10-PCS; 2016-09-24)
PROC: 0DBL8ZX Excision of Transverse Colon, Via Natural or Artificial Opening Endoscopic, Diagnostic (ICD-10-PCS; 2016-09-24)
PROC: 0DBK8ZX Excision of Ascending Colon, Via Natural or Artificial Opening Endoscopic, Diagnostic (ICD-10-PCS; 2016-09-24)
PROC: 0DBN8ZX Excision of Sigmoid Colon, Via Natural or Artificial Opening Endoscopic, Diagnostic (ICD-10-PCS; principal; 2016-09-24 10:45)
DX: D50.9 Iron deficiency anemia, unspecified (principal); A41.02 Sepsis due to Methicillin resistant Staphylococcus aureus; J18.9 Pneumonia, unspecified organism; E66.01 Morbid (severe) obesity due to excess calories; Z68.41 Body mass index [BMI] 40.0-44.9, adult; B85.0 Pediculosis due to Pediculus humanus capitis; D72.1 Eosinophilia; D12.5 Benign neoplasm of sigmoid colon; D12.4 Benign neoplasm of descending colon; E87.6 Hypokalemia; F17.210 Nicotine dependence, cigarettes, uncomplicated; J45.909 Unspecified asthma, uncomplicated; F70 Mild intellectual disabilities; E87.5 Hyperkalemia
CPT/HCPCS: 36415; 51701; 71010; 80048; 80053; 80202; 81000; 82274; 82607; 82728; 82746; 83036; 83540; 83605; 83735; 84443; 84484; 84703; 85007; 85025; 85027; 85610; 85730; 86850; 86900; 86901; 86920; 87040; 87077; 87186; 94640; 94760; 96374; 96375

== ENCOUNTER 2017-04-01 09:00 | Outpatient (RCR) | payer MEDICAID ==
[~2017-04-01 09:00] MED LIST changes: +FERR-74 PO; +PANT40TA3 PO; +QUET100T69 PO; +SULF1TAB35 PO
== END 2017-04-12 14:31 | disposition home or self-care (01) ==
PROVIDERS: ATTEND Internal Medicine
DX: I87.2 Venous insufficiency (chronic) (peripheral) (principal)

== ENCOUNTER 2019-04-07 22:55 | Emergency (ER) | payer MEDICAID ==
[~2019-04-07] VITALS: Ht 170 cm; Wt 119.5 kg
[~2019-04-07 22:55] MED LIST changes: -FERR-74 PO; +FERR325T18 PO
[2019-04-07] MEDS ORDERED: ASPIRIN 81 MG CHEW (CHILDREN'S ASA) PO ONE (23:00)
[2019-04-07] MEDS ORDERED: NITROGLYCERIN 0.4 MG SL TABS BTL 25'S SL PRN (23:00)
[2019-04-07 23:09] LABS: BASOPHILS % (AUTO) 0 % (0-10); EOSINOPHILS # (AUTO) 0.5 10^3/uL (0.0-0.3); EOSINOPHILS % (AUTO) 3 % (0-10); HEMATOCRIT 35 % (35-52); HEMOGLOBIN 10.9 G/DL (11.5-16.0); LYMPHOCYTES # (AUTO) 1.3 X 10^3 (1.0-4.0); LYMPHOCYTES % (AUTO) 7 % (12-44); MEAN CORPUSCULAR HEMOGLOBIN 25 PG (25-34); MEAN CORPUSCULAR HGB CONC 31 G/DL (32-36); MEAN CORPUSCULAR VOLUME 81 FL (80-99); MEAN PLATELET VOLUME 9.1 FL (7.4-10.4); MONOCYTES # (AUTO) 1.4 X 10^3 (0.0-1.0); MONOCYTES % (AUTO) 8 % (0-12); NEUTROPHILS # (AUTO) 14.9 X 10^3 (1.8-7.8); NEUTROPHILS % (AUTO) 83 % (42-75); PLATELET COUNT 528 10^3/uL (130-400); WHITE BLOOD COUNT 18.1 10^3/uL (4.3-11.0)
[2019-04-07] MEDS ORDERED: ONDANSETRON 4 MG/2 ML (SDV) Z0FRAN IVP ONE (23:15)
[2019-04-07] MEDS ORDERED: HYOSCYAMINE 0.125 MG (LEVSIN) TAB PO ONE (23:15)
[2019-04-07] MEDS ORDERED: PANTOPRAZOLE 40 MG (PROTONIX) VIAL IV ONE (23:15)
[2019-04-07 23:19] LABS: PROTHROMBIN TIME PATIENT 13.8 SEC (12.2-14.7)
--- NOTE | 2019-04-07 23:25 | ED Abdominal Pain ---
General Chief Complaint: Chest Pain Stated Complaint: CP Source of Information: Patient (PT IS LIMITED HISTORIAN), Family (SISTER GIVES MOST INFORMATION), Old Records History of Present Illness Date Seen by Provider: Apr 07, 2019 Time Seen by Provider: 22:55 Initial Comments PT ARRIVES VIA POV FROM HOME WITH SISTER ( YOEL CACERES) --PT LIVES WITH HER MOTH ER ( YURI CACERES ), HER SISTER YOEL AND YOEL'S 3 CHILDREN. PT C/O "CHEST PAIN"--BUT POINTS TO EPIGASTRIC AREA, NOT ACTUALLY IN CHEST STATES PAIN BEGAN 1 1/2 HOURS AGO, WHEN SHE WAS TRYING TO EAT STATES PAIN STARTED A LITTLE BEFORE SHE WAS EATING, BUT GOT WORSE C/O NAUSEA,NO VOMITING NO DIARRHEA C/O SHORTNESS OF BREATH--PT IS ANXIOUS AND HYPERVENTILATING NO FEVER HAS CHRONIC COUGH--SMOKES AT LEAST 1 PPD PT WITH HISTORY OF SEVERE ANXIETY AND PANIC ATTACKS, PER SISTER, AND PT HAS NOT TAKEN ANY OF HER MEDICATIONS TODAY, STATES "I KEEP FORGETTING TO TAKE THEM" PT STATES THIS FEELS LIKE THE PAIN SHE HAD BEFORE SHE HAD HER GALLBLADDER OUT YEARS AGO. PCP: DR. QUINONES Allergies and Home Medications Allergies Coded Allergies: pseudoephedrine (Verified Allergy, Unknown, 09/24/16) Home Medications Hydrocodone/Ibuprofen 1 Each Tablet, 1 EACH PO Q6H PRN for PAIN, (Reported) Hyoscyamine Sulfate 0.125 Mg Tab.subl, 1-2 TAB SL Q4H Prescribed by: RON FOY on 04/08/19 024 Nitrofurantoin Monohyd/M-Cryst 100 Mg Capsule, 100 MG PO BID Prescribed by: RON FOY on 04/08/193 Ondansetron 8 Mg Tab.rapdis, 8 MG PO Q6H Prescribed by: RON FOY on 04/08/19 024 Pantoprazole Sodium 40 Mg Tablet., 40 MG PO DAILY@0700 Prescribed by: IVELISSE ROWE on 09/25/16 1047 Pantoprazole Sodium 40 Mg Tablet.dr, 40 MG PO DAILY Prescribed by: RON FOY on 04/08/19 024 Quetiapine Fumarate 100 Mg Tablet, 100 MG PO HS, (Reported) Sulfamethoxazole/Trimethoprim 1 Each Tablet, 1 EACH PO BID Prescribed by: IVELISSE ROWE on 09/25/16 1047 Venlafaxine HCl 75 Mg Tab, 75 MG PO HS, (Reported) LAST FILLED 08/06/16 #60 Patient Home Medication List Home Medication List Reviewed: Yes Review of Systems Review of Systems Constitutional: No chills, No fever Respiratory: See HPI Cardiovascular: See HPI Gastrointestinal: See HPI Genitourinary: No Symptoms Reported Musculoskeletal: no symptoms reported Psychiatric/Neurological: See HPI, Anxiety Endocrine: No Symptoms Reported Hematologic/Lymphatic: No Symptoms Reported Past Zjhuzwe-Wtpbgp-Cshhzt Hx Past Med/Social Hx: Reviewed and Corrections made Patient Social History Alcohol Use: Denies Use Recreational Drug Use: No Smoking Status: Current Everyday Smoker (1 PPD) Type Used: Cigarettes (1 PPD) Recent Foreign Travel: No Contact w/Someone Who Travel: No Recent Hopitalizations: No Physical Abuse: No Sexual Abuse: No Mistreated: No Fear: No Immunizations Up To Date Tetanus Booster (TDap): Less than 5yrs PED Vaccines UTD: Yes Seasonal Allergies Seasonal Allergies: No Past Medical History Surgeries: Yes ("KIDNEY SURGERY" AT AGE 4--DOES NOT KNOW EXACTLY WHAT SURGERY WAS FOR; RIGHT KNEE SCOPE; CYSTOSCOPIES/URETEROSCOPIES; EGD /COLONOSCOPY/POLYPECTOMY 2016) Gallbladder, Orthopedic, Renal Respiratory: Yes Asthma Cardiac: No Neurological: Yes (MR/LOW IQ) Developmental Disorder Reproductive Disorders: No Sexually Transmitted Disease: No Genitourinary: Yes (UNKNOWN "KIDNEY SURGERY" AT AGE 4; CHRONIC LEFT HYDRONEPHROSIS) Gastrointestinal: Yes (EGD/COLONOSCOPY/POLYPECTOMY--6 BENIGN ADENOMAS) Polyps Musculoskeletal: No Endocrine: Yes (OBESITY) Hearing Impairment: Hard of Hearing, Deaf Cancer: No Psychosocial: Yes Anxiety, Bipolar, Depression Integumentary: Yes (HX OF SEVERE BED BUG INFESTATION AND LICE INFESTATION. ) Psoriasis Blood Disorders: Yes (SEVERE ANEMIA) Family Medical History No Pertinent Family Hx Physical Exam Vital Signs Vital Signs - First Documented 04/07/19 04/07/19 22:55 22:58 Temp 36.8 Pulse 81 Resp 22 B/P (MAP) 102/62 (75) Pulse Ox 99 O2 Delivery Room Air Capillary Refill : Height/Weight/BMI Height: 5'8.00" Weight: 277lbs. 3.0oz. 125.996451ir; 42.2 BMI Method:Stated General Appearance: obese, other (FILTHY, EXTREMELY MALODOROUS. EXTREMELY DRAMATIC, HYPERVENTILATING AND MOANING/GRUNTING ON ARRIVAL. KEEPS EYES SQUEEZED SHUT AT ALL TIMES, FISTS CLENCHED, WITH MILD GENERALIZED TREMULOUSNESS. ) HEENT: other (VERY POOR DENTITION--MOST TEETH MISSING, AND FEW REMAINING TEETH WITH EXTENSIVE DECAY AND EXTREMELY POOR HYGIENE OF MOUTH, AND FACE WITH DRIED FOOD OR DEBRIS OF SOME SORT ) Neck: normal inspection Respiratory: normal breath sounds, other (HYPOERVENTILATING) Cardiovascular: regular rate, rhythm, no murmur Gastrointestinal: normal bowel sounds, soft, tenderness (MARKED EPIGASTRIC AND XYPHOID TENDERNESS. PALPATION DRAMATICALLY REPRODUCES PAIN) Extremities: pedal edema (AT LEAST 1+ EDEMA BILATERALLY, BUT DIFFICULT TO DETERMINE DUE TO BODY HABITUS) Back: no CVA tenderness Neurologic/Psychiatric: no motor/sensory deficits, alert, other (EXTREMELY ANXIOUS, HYPERVENTILATING, MOANING/WAILING/GRUNTING, AND SCREAMS WITH IV STICK. ) Skin: normal color, warm/dry Progress/Results/Core Measures Results/Orders Lab Results Laboratory Tests Test 04/07/19 22:58 04/08/19 00:45 Range/Units White Blood Count 18.1 H 4.3-11.0 10^3/uL Red Blood Count 4.32 L 4.35-5.85 10^6/uL Hemoglobin 10.9 L 11.5-16.0 G/DL Hematocrit 35 35-52 % Mean Corpuscular Volume 81 80-99 FL Mean Corpuscular Hemoglobin 25 25-34 PG Mean Corpuscular Hemoglobin Concent 31 L 32-36 G/DL Red Cell Distribution Width 17.0 H 10.0-14.5 % Platelet Count 528 H 130-400 10^3/uL Mean Platelet Volume 9.1 7.4-10.4 FL Neutrophils (%) (Auto) 83 H 42-75 % Lymphocytes (%) (Auto) 7 L 12-44 % Monocytes (%) (Auto) 8 0-12 % Eosinophils (%) (Auto) 3 0-10 % Basophils (%) (Auto) 0 0-10 % Neutrophils # (Auto) 14.9 H 1.8-7.8 X 10^3 Lymphocytes # (Auto) 1.3 1.0-4.0 X 10^3 Monocytes # (Auto) 1.4 H 0.0-1.0 X 10^3 Eosinophils # (Auto) 0.5 H 0.0-0.3 10^3/uL Basophils # (Auto) 0.0 0.0-0.1 10^3/uL Neutrophils % (Manual) 89 % Lymphocytes % (Manual) 4 % Monocytes % (Manual) 3 % Eosinophils % (Manual) 4 % Blood Morphology Comment NORMAL Prothrombin Time 13.8 12.2-14.7 SEC INR Comment 1.0 0.8-1.4 Activated Partial Thromboplast Time 28 24-35 SEC Sodium Level 140 135-145 MMOL/L Potassium Level 3.8 3.6-5.0 MMOL/L Chloride Level 105 98-107 MMOL/L Carbon Dioxide Level 21 21-32 MMOL/L Anion Gap 14 5-14 MMOL/L Blood Urea Nitrogen 11 7-18 MG/DL Creatinine 1.09 0.60-1.30 MG/DL Estimat Glomerular Filtration Rate 56 BUN/Creatinine Ratio 10 Glucose Level 106 H 70-105 MG/DL Calcium Level 9.7 8.5-10.1 MG/DL Corrected Calcium 9.8 8.5-10.1 MG/DL Magnesium Level 1.9 1.6-2.4 MG/DL Total Bilirubin 0.2 0.1-1.0 MG/DL Aspartate Amino Transf (AST/SGOT) 17 5-34 U/L Alanine Aminotransferase (ALT/SGPT) 18 0-55 U/L Alkaline Phosphatase 112 40-136 U/L Total Creatine Kinase 163 29-168 U/L Creatine Kinase MB 1.3 <6.6 NG/ML Myoglobin 41.2 10.0-92.0 NG/ML Troponin I < 0.028 <0.028 NG/ML B-Type Natriuretic Peptide 110.9 H <100.0 PG/ML Total Protein 7.9 6.4-8.2 GM/DL Albumin 3.9 3.2-4.5 GM/DL Amylase Level 54 25-125 U/L Lipase 20 8-78 U/L Serum Test, Qualitative NEGATIVE NEGATIVE Serum Alcohol < 10 <10 MG/DL Urine Color YELLOW Urine Clarity CLEAR Urine pH 5.5 5-9 Urine Specific [place] 1.010 L 1.016-1.022 Urine Protein NEGATIVE NEGATIVE Urine Glucose (UA) NEGATIVE NEGATIVE Urine Ketones NEGATIVE NEGATIVE Urine Nitrite POSITIVE NEGATIVE Urine Bilirubin NEGATIVE NEGATIVE Urine Urobilinogen 0.2 < = 1.0 MG/DL Urine Leukocyte Esterase 1+ H NEGATIVE Urine RBC (Auto) 1+ H NEGATIVE Urine RBC 0-2 /HPF Urine WBC 10-25 H /HPF Urine Squamous Epithelial Cells 0-2 /HPF Urine Crystals NONE /LPF Urine Bacteria LARGE H /HPF Urine Casts NONE /LPF Urine Mucus NEGATIVE /LPF Urine Culture Indicated YES Urine Opiates Screen NEGATIVE NEGATIVE Urine Oxycodone Screen NEGATIVE NEGATIVE Urine Methadone Screen NEGATIVE NEGATIVE Urine Propoxyphene Screen NEGATIVE NEGATIVE Urine Barbiturates Screen NEGATIVE NEGATIVE Ur Tricyclic Antidepressants Screen NEGATIVE NEGATIVE Urine Phencyclidine Screen NEGATIVE NEGATIVE Urine Amphetamines Screen NEGATIVE NEGATIVE Urine Methamphetamines Screen NEGATIVE NEGATIVE Urine Benzodiazepines Screen NEGATIVE NEGATIVE Urine Cocaine Screen NEGATIVE NEGATIVE Urine Cannabinoids Screen NEGATIVE NEGATIVE Micro Results Microbiology 04/08/19 Urine Culture - Preliminary, Resulted Escherichia coli My Orders Orders - RON FOY DO Cbc With Automated Diff (04/07/19 22:56) Magnesium (04/07/19 22:56) Chest 1 View, Ap/Pa Only (04/07/19 22:56) Ekg Tracing (04/07/19 22:56) Comprehensive Metabolic Panel (04/07/19 22:56) Myoglobin Serum (04/07/19 22:56) Protime With Inr (04/07/19 22:56) Partial Thromboplastin Time (04/07/19 22:56) O2 (04/07/19 22:56) Monitor-Rhythm Ecg Trace Only (04/07/19 22:56) Ed Iv/Invasive Line Start (04/07/19 22:56) Creatine Kinase (04/07/19 22:56) Creatine Kinase Mb (04/07/19 22:56) Lipase (04/07/19 22:56) Amylase (04/07/19 22:56) BNP (04/07/19 22:56) Troponin I (04/07/19 22:56) Nitroglycerin 0.4 Mg Btl 25's (Nitrostat (04/07/19 23:00) Aspirin Chewable Tablet (Baby Aspirin Ch (04/07/19 23:00) Alcohol (04/07/19 22:56) Drug Screen Stat (Urine) (04/07/19 22:56) Hcg,Qualitative Serum (04/07/19 22:56) Pantoprazole Injection (Protonix Injecti (04/07/19 23:15) Ondansetron Injection (Zofran Injectio (04/07/19 23:15) Hyoscyamine Sl Tablet (Levsin Sl Tablet) (04/07/19 23:15) Manual Differential (04/07/19 22:58) Ct [facility] Chest/Noang Abd-Pelv W (04/08/19 00:01) Iohexol Injection (Omnipaque 350 Mg/Ml 1 (04/08/19 00:15) Received Contrast (Hold Metformin- Contr (04/08/19 00:15) Ns (Ivpb) (Sodium Chloride 0.9% Ivpb Bag (04/08/19 00:15) Straight Cath For Spec.-Adult (04/08/19 00:30) Ua Culture If Indicated (04/08/19 02:11) Ketorolac Injection (Toradol Injection) (04/08/19 02:15) Diphenhydramine Injection (Benadryl Inje (04/08/19 02:15) Urine Culture (04/08/19 00:45) Medications Given in ED Vital Signs/I&O 04/07/19 04/07/19 04/07/19 04/08/19 22:55 22:55 22:58 03:17 Temp 36.8 Pulse 81 72 Resp 22 25 B/P (MAP) 102/62 (75) 113/58 (75) Pulse Ox 99 99 93 O2 Delivery Room Air Room Air Room Air Room Air Progress Progress Note : Progress Note PT PLACED ON NRB MASK WITHOUT OXYGEN FOR HYPERVENTILATION,WITH IMPROVEMENT IN HYPERVENTILATION PT EVENTUALLY CALMED, AND HAD NO FURTHER COMPLAINTS ON RETURN FROM CT, PT IMMEDIATELY WENT TO SLEEP AND SLEPT VERY SOUNDLY--SNORING ( SISTER STATES THAT SHE NORMALLY SNORES EVEN LOUDER AT HOME--IS FELT THAT SHE HAS SLEEP APNEA, BUT PT UNABLE TO UNDERGO TESTING AND FELT THAT SHE WOULD NOT TOLERATE A CPAP OR BE COMPLIANT ) PT EASILY AWAKENED, AND PRIOR TO DISMISSAL, PT IS NOW SMILING, HAS COMPLETELY DRESSED HERSELF, IS TALKING NORMALLY/NORMAL BASELINE, FOLDING THE BLANKETS AND SHEETS, AND IS COMPLETELY NORMAL FOR HER. IN NO ACUTE DISTRESS OR DISCOMFORT WHATSOEVER. Initial ECG Impression Date: Apr 07, 2019 Initial ECG Impression Time: 23:00 Initial ECG Rate: 77 Initial ECG Rhythm: Normal Sinus Diagnostic Imaging Comments ABDOMEN XRAYS--NO ACUTE PROCESS, PENDING RADIOLOGIST REVIEW CT CHEST ANGIOGRAM/ ABDOMEN-PELVIS--NO ACUTE PROCESS, MODERATE LEFT PELVOCALIECTASIS WITHOUT EVIDENCE OF OBSTRUCTING STONE, UROTHELIAL THICKENING BILATERALLY BUT MORE PROMINENT ON LEFT--PER [facility] VIA FAX [id number]--PT HAS CHRONIC LEFT COLLECTING SYSTEM DILATION Reviewed: Reviewed by Me Departure Impression Primary Impression: Anxiety hyperventilation Additional Impressions: Epigastric abdominal pain Urinary tract infection Disposition: HOME, SELF-CARE Condition: Improved Departure-Patient Inst. Referrals: SINAN QUINONES MD (PCP) Primary Care Physician [facility] (Family) Primary Care Physician Patient Instructions: Acute Abdomen (Belly Pain), Adult (DC), Anxiety, Adult (DC), Hyperventilation, Urinary Tract Infection, Adult (DC) Add. Discharge Instructions: CLEAR LIQUIDS--WATER, BROTH, JELLO, GATORADE TOMORROW IF YOU ARE BETTER, ADD BRATS DIET TO CLEAR LIQUIDS--BANANAS, RICE, APPLESAUCE, TOAST, SALTINES TAKE YOUR REGULAR MEDICATIONS PRESCRIBED FOLLOW UP WITH YOUR DR FOR FURTHER CARE All discharge instructions reviewed with patient and/or family. Voiced understanding. Scripts Nitrofurantoin Monohyd/M-Cryst (Macrobid 100 mg Capsule) 100 Mg Capsule 100 MG PO BID, #20 CAP Prov: RON FOY DO 04/08/19 Ondansetron (Ondansetron Odt) 8 Mg Tab.rapdis 8 MG PO Q6H for Nausea/Vomiting, #10 TAB Prov: RON FOY DO 04/08/19 Hyoscyamine Sulfate (Levsin-Sl) 0.125 Mg Tab.subl 1-2 TAB SL Q4H for Abdominal Pain, #15 TAB Prov: RON FOY DO 04/08/19 Pantoprazole Sodium (Protonix) 40 Mg Tablet.dr 40 MG PO DAILY, #15 TAB Prov: RON FOY DO 04/08/19 RON FOY DO Apr 07, 2019 23:25 POS
[2019-04-07 23:28] LABS: ALBUMIN 3.9 GM/DL (3.2-4.5); BILIRUBIN,TOTAL 0.2 MG/DL (0.1-1.0); CALCIUM 9.7 MG/DL (8.5-10.1); CREATININE SERUM 1.09 MG/DL (0.60-1.30); MAGNESIUM 1.9 MG/DL (1.6-2.4); POTASSIUM 3.8 MMOL/L (3.6-5.0); TOTAL PROTEIN 7.9 GM/DL (6.4-8.2)
[2019-04-07 23:32] LABS: EOSINOPHILS % (MANUAL) 4 %; LYMPHOCYTES % (MANUAL) 4 %; MONOCYTES % (MANUAL) 3 %; NEUTROPHILS % (MANUAL) 89 %; RBC MORPH NORMAL
[2019-04-07 23:34] LABS: CREATINE KINASE MB 1.3 NG/ML (<6.6)
[2019-04-08] MEDS ORDERED: IOHEXOL 350 MG/ML 100 ML (OMNIPAQUE 350) VIAL IV ONE (00:15)
[2019-04-08] MEDS ORDERED: HOLD METFORMIN - RECEIVED CONTRAST 20 ML VIAL IV SCH (00:15)
[2019-04-08] MEDS ORDERED: NS 100 ML (IVPB) BAG IV ONE (00:15)
[2019-04-08 01:05] LABS: AMPHETAMINE SCREEN, URINE NEGATIVE (NEGATIVE); BARBITURATE SCREEN URINE NEGATIVE (NEGATIVE); BENZODIAZEPINES SCREEN URINE NEGATIVE (NEGATIVE); CANNABINOID SCREEN, URINE NEGATIVE (NEGATIVE); COCAINE SCREEN URINE NEGATIVE (NEGATIVE); METHADONE STAT NEGATIVE (NEGATIVE); METHAMPHETAMINE SCREEN URINE S NEGATIVE (NEGATIVE); OPIATE SCREEN URINE NEGATIVE (NEGATIVE); OXYCODONE STAT NEGATIVE (NEGATIVE); PROPOXYPHENE STAT NEGATIVE (NEGATIVE); TRICYCLIC ANTIDEPRESSANTS SCRE NEGATIVE (NEGATIVE)
[2019-04-08] MEDS ORDERED: KETOROLAC 30 MG/ML VIAL IVP ONE (02:15)
[2019-04-08] MEDS ORDERED: diphenhydrAMINE 50 MG/ML INJ (BENADRYL) IVP ONE (02:15)
[2019-04-08 02:17] LABS: BILIRUBIN,URINE NEGATIVE (NEGATIVE); CLARITY,URINE CLEAR; COLOR,URINE YELLOW; GLUCOSE, URINE (UA) NEGATIVE (NEGATIVE); KETONES,URINE NEGATIVE (NEGATIVE); LEUKOCYTE ESTERASE ,URINE 1+ (NEGATIVE); NITRITE,URINE POSITIVE (NEGATIVE); PH,URINE 5.5 (5-9); PROTEIN,URINE NEGATIVE (NEGATIVE)
[2019-04-08 02:28] LABS: BACTERIA,URINE LARGE /HPF; RBC,URINE 0-2 /HPF; SQUAMOUS EPITHELIAL CELL,UR 0-2 /HPF
[2019-04-08] MEDS ORDERED: PANT40TA2 PO (02:41)
[2019-04-08] MEDS ORDERED: ONDA8TAB13 PO (02:41)
[2019-04-08] MEDS ORDERED: HYOS0.1283 SL (02:41)
[2019-04-08] MEDS ORDERED: NITR-65 PO (03:13)
[2019-04-08 03:17] VITALS: BP 113/58
--- NOTE | 2019-04-08 06:55 | Diagnostic Imaging Report ---
INDICATION: Chest pain, tachypnea Post IV contrast enhanced CT chest, abdomen and pelvis performed within the chest, 3-D reconstructions of CT angiographic technique undertaken. CHEST: There is prominence of the patent pulmonary arterial branches centrally. Underlying pulmonary hypertension cannot be excluded. There was no filling defect or PE evident. The aorta is patent and nonaneurysmal. The heart size is within normal limits. No lung mass, infiltrate or thoracic adenopathy. There is very minimal dependent zones of atelectasis. No effusion, pneumothorax or acute chest wall pathology. ABDOMEN PELVIS: There is a mild left hydroureteronephrosis with urothelial thickening extending into the proximal left ureter. There is questionable more mild urothelial thickening associated with the nondilated right kidney in its proximal ureter. Pyelonephritis and urinary tract infection suggested by these findings, correlate with lab studies. There is some chronic left renal atrophy. The adrenals are negative. The gallbladder is surgically absent. Spleen and pancreas normal. The aortoiliac and mesenteric vessels patent and nonaneurysmal. No dissection or rupture. Given its degree of distention the urinary bladder wall is at least mildly thickened but nonfocal. Uterus and adnexa unremarkable. No ascites, abscess, hematoma or other fluid collection. No free air. IMPRESSION: CHEST: Negative for PE. Mild prominence of the patent pulmonary arterial branches noted. Mild pulmonary hypertension could not be excluded. ABDOMEN PELVIS: Some mild left atrophy chronic. Left greater than right calyceal and pelvic dilatation with left greater than right urothelial thickening. No visualized radiodense stone. Slight bladder wall thickening is an equivocal finding. The overall pattern is suspicious for urinary tract infection. Pyelonephritis greater left not excluded. No abscess. The remaining abdominal pelvic solid and hollow viscera appeared unremarkable. Dictated by: Dictated on workstation # [id number]
--- NOTE | 2019-04-08 07:28 | Diagnostic Imaging Report ---
EXAMINATION: Single view the chest. INDICATION: Chest pain COMPARISON: 09/21/2016 FINDINGS: Single view of the chest demonstrates clear lungs bilaterally. The heart is normal. There is no pneumothorax. Osseous structures are age-appropriate. IMPRESSION: Negative chest. Dictated by: Dictated on workstation # [id number]
== END 2019-04-08 03:17 | disposition home or self-care (01) ==
LOC: EDUNIT# 22:55 → ER 22:56
DX: R06.4 Hyperventilation (principal); F41.9 Anxiety disorder, unspecified; N39.0 Urinary tract infection, site not specified; R10.13 Epigastric pain; J45.909 Unspecified asthma, uncomplicated; F31.9 Bipolar disorder, unspecified; D64.9 Anemia, unspecified; E66.9 Obesity, unspecified; F17.210 Nicotine dependence, cigarettes, uncomplicated; Z88.8 Allergy status to other drugs, medicaments and biological substances; Z68.41 Body mass index [BMI] 40.0-44.9, adult
CPT/HCPCS: 36415; 51701; 71045; 71275; 74177; 80053; 80306; 80320; 81000; 82150; 82550; 82553; 83690; 83735; 83874; 83880; 84484; 84703; 85007; 85027; 85610; 85730; 87077; 87088; 87186; 93005; 93041; 96374; 96375

== ENCOUNTER 2020-03-25 15:57 | Emergency (ER) | payer MEDICAID ==
[~2020-03-25] VITALS: Ht 147 cm; Wt 136.0 kg
[~2020-03-25 15:57] MED LIST changes: +HYOS0.1283 SL; +NITR-65 PO; +ONDA8TAB13 PO; +PANT40TA2 PO; -PANT40TA3 PO; +PANT40TA52 PO; +QUET100T33 PO; -QUET100T69 PO
--- NOTE | 2020-03-25 16:56 | ED General ---
General Chief Complaint: General Problems/Pain Stated Complaint: LEFT SIDE PAIN;LEFT LOWER BACK PAIN Nursing Triage Note: PT ARRIVES TO ER WITH C/O L SIDE PAIN AND L LOWER BACK PAIN WHICH STARTED LAST TUESDAY Nursing Sepsis Screen: No Definite Risk Source of Information: Patient Exam Limitations: No Limitations History of Present Illness Date Seen by Provider: Mar 25, 2020 Time Seen by Provider: 16:54 Initial Comments To ER with reports of left flank pain that began last week. Was sent out here by [facility]. Timing/Duration: 5-6 Days Associated Systoms: Denies Symptoms Allergies and Home Medications Allergies Coded Allergies: pseudoephedrine (Verified Allergy, Unknown, 09/24/16) Home Medications Hydrocodone/Ibuprofen 1 Each Tablet, 1 EACH PO Q6H PRN for PAIN, (Reported) Hyoscyamine Sulfate 0.125 Mg Tab.subl, 1-2 TAB SL Q4H Prescribed by: RON FOY on 04/08/19 0241 Nitrofurantoin Monohyd/M-Cryst 100 Mg Capsule, 100 MG PO BID Prescribed by: RON FOY on 04/08/19 0313 Ondansetron 8 Mg Tab.rapdis, 8 MG PO Q6H Prescribed by: RON FOY on 04/08/19 0241 Pantoprazole Sodium 40 Mg Tablet.dr, 40 MG PO DAILY@0700 Prescribed by: IVELISSE ROWE on 09/25/16 1047 Pantoprazole Sodium 40 Mg Tablet.dr, 40 MG PO DAILY Prescribed by: RON FOY on 04/08/19 0241 Quetiapine Fumarate 100 Mg Tablet, 100 MG PO HS, (Reported) Sulfamethoxazole/Trimethoprim 1 Each Tablet, 1 EACH PO BID Prescribed by: IVELISSE ROWE on 09/25/16 1047 Venlafaxine HCl 75 Mg Tab, 75 MG PO HS, (Reported) LAST FILLED 08/06/16 #60 Patient Home Medication List Home Medication List Reviewed: Yes Review of Systems Review of Systems Constitutional: see HPI EENTM: see HPI Respiratory: no symptoms reported Cardiovascular: no symptoms reported Genitourinary: no symptoms reported Musculoskeletal: no symptoms reported Skin: no symptoms reported Psychiatric/Neurological: No Symptoms Reported Hematologic/Lymphatic: No Symptoms Reported Past Zymibvt-Zkybdy-Fllvxe Hx Patient Social History Alcohol Use: Denies Use Recreational Drug Use: No Type Used: Cigarettes Recent Foreign Travel: No Contact w/Someone Who Travel: No Recent Infectious Disease Expo: No Recent Hopitalizations: No Immunizations Up To Date Tetanus Booster (TDap): Less than 5yrs PED Vaccines UTD: Yes Date of Influenza Vaccine: Feb 22, 2020 Seasonal Allergies Seasonal Allergies: No Past Medical History Surgeries: Yes Gallbladder, Orthopedic, Renal Respiratory: Yes Asthma Cardiac: No Neurological: Yes (MR/LOW IQ) Developmental Disorder Reproductive Disorders: No Sexually Transmitted Disease: No Genitourinary: Yes (UNKNOWN "KIDNEY SURGERY" AT AGE 4; CHRONIC LEFT HYDRONEPHROSIS) Gastrointestinal: Yes (EGD/COLONOSCOPY/POLYPECTOMY--6 BENIGN ADENOMAS) Polyps Musculoskeletal: No Endocrine: Yes (OBESITY) Hearing Impairment: Hard of Hearing, Deaf Cancer: No Psychosocial: Yes Anxiety, Bipolar, Depression Integumentary: Yes (HX OF SEVERE BED BUG INFESTATION AND LICE INFESTATION. ) Psoriasis Blood Disorders: Yes (SEVERE ANEMIA) Family Medical History No Pertinent Family Hx Physical Exam Vital Signs Vital Signs - First Documented 03/25/20 16:06 Temp 37.0 Pulse 90 B/P (MAP) 124/73 (90) Pulse Ox 95 O2 Delivery Room Air Capillary Refill : Less Than 3 Seconds Height, Weight, BMI Height: 5'8.00" Weight: 277lbs. 3.0oz. 125.742352us; 62.00 BMI Method:Stated General Appearance: No Apparent Distress, WD/WN, Obese (Hard of hearing, uses sign language) Neck: Full Range of Motion, Normal Inspection Respiratory: Normal Breath Sounds, No Accessory Muscle Use, No Respiratory Distress Gastrointestinal: Normal Bowel Sounds, Soft, Tenderness (left flank) Extremity: Normal Capillary Refill, Normal Inspection Neurologic/Psychiatric: Alert, Oriented x3 Skin: Normal Color, Warm/Dry Progress/Results/Core Measures Suspected Sepsis Recent Fever Within 48 Hours: No Infection Criteria Present: None New/Unexplained Altered Menta: No Sepsis Screen: No Definite Risk SIRS Temperature: Pulse: 90 Respiratory Rate: Laboratory Tests 03/25/20 16:52: White Blood Count 11.9H Blood Pressure 124 /73 Mean: 90 Laboratory Tests 03/25/20 16:52: Creatinine 1.22, Platelet Count 294, Total Bilirubin 1.1H Results/Orders Lab Results Laboratory Tests Test 03/25/20 16:17 03/25/20 16:52 Range/Units Urine Color YELLOW Urine Clarity CLOUDY Urine pH 6.0 5-9 Urine Specific [place] 1.010 L 1.016-1.022 Urine Protein 2+ H NEGATIVE Urine Glucose (UA) NEGATIVE NEGATIVE Urine Ketones NEGATIVE NEGATIVE Urine Nitrite POSITIVE H NEGATIVE Urine Bilirubin NEGATIVE NEGATIVE Urine Urobilinogen 2.0 < = 1.0 MG/DL Urine Leukocyte Esterase 3+ H NEGATIVE Urine RBC (Auto) 2+ H NEGATIVE Urine RBC 2-5 H /HPF Urine WBC TNTC H /HPF Urine Crystals NONE /LPF Urine Bacteria FEW H /HPF Urine Casts NONE /LPF Urine Mucus NEGATIVE /LPF Urine Culture Indicated YES White Blood Count 11.9 H 4.3-11.0 10^3/uL Red Blood Count 3.81 3.80-5.11 10^6/uL Hemoglobin 11.1 L 11.5-16.0 g/dL Hematocrit 35 35-52 % Mean Corpuscular Volume 91 80-99 fL Mean Corpuscular Hemoglobin 29 25-34 pg Mean Corpuscular Hemoglobin Concent 32 32-36 g/dL Red Cell Distribution Width 15.0 H 10.0-14.5 % Platelet Count 294 130-400 10^3/uL Mean Platelet Volume 10.1 9.0-12.2 fL Immature Granulocyte % (Auto) 1 % Neutrophils (%) (Auto) 73 42-75 % Lymphocytes (%) (Auto) 13 12-44 % Monocytes (%) (Auto) 13 H 0-12 % Eosinophils (%) (Auto) 1 0-10 % Basophils (%) (Auto) 0 0-10 % Neutrophils # (Auto) 8.7 H 1.8-7.8 10^3/uL Lymphocytes # (Auto) 1.5 1.0-4.0 10^3/uL Monocytes # (Auto) 1.6 H 0.0-1.0 10^3/uL Eosinophils # (Auto) 0.1 0.0-0.3 10^3/uL Basophils # (Auto) 0.0 0.0-0.1 10^3/uL Immature Granulocyte # (Auto) 0.1 0.0-0.1 10^3/uL Sodium Level 134 L 135-145 MMOL/L Potassium Level 3.5 L 3.6-5.0 MMOL/L Chloride Level 101 98-107 MMOL/L Carbon Dioxide Level 23 21-32 MMOL/L Anion Gap 10 5-14 MMOL/L Blood Urea Nitrogen 13 7-18 MG/DL Creatinine 1.22 0.60-1.30 MG/DL Estimat Glomerular Filtration Rate 49 BUN/Creatinine Ratio 11 Glucose Level 120 H 70-105 MG/DL Calcium Level 9.3 8.5-10.1 MG/DL Corrected Calcium 9.7 8.5-10.1 MG/DL Total Bilirubin 1.1 H 0.1-1.0 MG/DL Aspartate Amino Transf (AST/SGOT) 24 5-34 U/L Alanine Aminotransferase (ALT/SGPT) 30 0-55 U/L Alkaline Phosphatase 135 40-136 U/L Total Protein 7.3 6.4-8.2 GM/DL Albumin 3.5 3.2-4.5 GM/DL Serum Test, Qualitative NEGATIVE NEGATIVE My Orders Orders - MADAN KO APRN Ua Culture If Indicated (03/25/20 16:39) Hcg,Qualitative Serum (03/25/20 16:39) Cbc With Automated Diff (03/25/20 16:39) Comprehensive Metabolic Panel (03/25/20 16:39) Ed Iv/Invasive Line Start (03/25/20 16:39) Ns Iv 1000 Ml (Sodium Chloride 0.9%) (03/25/20 17:00) Fentanyl Injection (Sublimaze Injection (03/25/20 17:00) Ct Abd/Pelvis Wo(Kidney Stone) (03/25/20 16:52) Ketorolac Injection (Toradol Injection) (03/25/20 17:00) Urine Culture (03/25/20 16:17) Medications Given in ED Current Medications Medications Dose Ordered Sig/Shae Route Start Time Stop Time Status Last Admin Dose Admin Fentanyl Citrate 50 mcg ONCE ONCE IVP 03/25/20 17:00 03/25/20 17:01 DC 03/25/20 17:04 50 MCG Ketorolac Tromethamine 15 mg ONCE ONCE IVP 03/25/20 17:00 03/25/20 17:01 DC 03/25/20 17:04 15 MG Vital Signs/I&O 03/25/20 16:06 Temp 37.0 Pulse 90 B/P (MAP) 124/73 (90) Pulse Ox 95 O2 Delivery Room Air Capillary Refill : Less Than 3 Seconds Blood Pressure Mean: 90 Diagnostic Imaging Comments NAME: [facility] REC#: [id number] PT STATUS: REG ER : 1980 PHYSICIAN: MADAN KO APRN ADMIT DATE: 03/25/20/ER Draft Date of Exam:03/25/20 CT ABD/PELVIS WO(KIDNEY STONE) PROCEDURE: CT urinary tract, rule out kidney stone. TECHNIQUE: Multiple contiguous axial images were obtained through the abdomen and pelvis without the use of intravenous contrast. Auto Exposure Controls were utilized during the CT exam to meet ALARA standards for radiation dose reduction. INDICATION: Kidney stones and left-sided abdominal pain. Correlation is made with prior CT from 04/08/2019. Lung bases are clear. The liver is unremarkable. Gallbladder surgically absent. No biliary ductal dilatation is seen. Pancreas and spleen are unremarkable. No adrenal mass is identified. There is diffuse dilatation of the right renal collecting system and right ureter with associated urothelial thickening. This is seen on prior exam from 2019. However, no definite obstructing calculus is identified. The left kidney is atrophic with cortical thinning. There is also dilatation of the left renal collecting system and left ureter with associated urothelial thickening traced to the level of urinary bladder. No obstructing calculi are seen. No bladder calculi are detected. There is some trace bladder wall thickening. Features appear very similar to prior examination. Aorta is non-aneurysmal. Bowel loops are normal caliber. There is no ascites. Uterus is unremarkable. IMPRESSION: Overall stable noncontrast CT of the abdomen and pelvis when compared with exam from 04/08/2019. Bilateral hydroureteronephrosis, left greater with associated urothelial thickening and left renal atrophy are similar. This could be owing to chronic reflux. No obstructing calculi are seen. No acute feature is detected. Dictated on workstation # [id number] Dict: 03/25/20 1733 Trans: 03/25/20 1745 [facility] [id number] Interpreted by: MARY JANE CACERES MD Electronically signed by: Departure Impression Primary Impression: Pyelonephritis Disposition: 01 HOME, SELF-CARE Condition: Stable Departure-Patient Inst. Decision time for Depature: 18:08 Referrals: SINAN QUINONES MD (PCP) Primary Care Physician [facility] (Family) Primary Care Physician Patient Instructions: Kidney Infection Add. Discharge Instructions: 1. MEdication as directed 2. Follow up wiht your doctor THIS WEEK for recheck. 3. Return to er for any worsening pain, fevers, or other concerns. All discharge instructions reviewed with patient and/or family. Voiced understanding. Scripts Cefdinir (Cefdinir) 300 Mg Capsule 300 MG PO BID, #14 CAP Prov: MADAN KO APRN 03/25/20 MADAN KO APRN Mar 25, 2020 16:55
[2020-03-25] MEDS ORDERED: KETOROLAC 30 MG/ML VIAL IVP ONE (17:00)
[2020-03-25] MEDS ORDERED: fentaNYL INJECTION 100 MCG/2 ML AMP IVP ONE (17:00)
[2020-03-25] MEDS ORDERED: NS IV 1000 ML 1,000 ML IV SCH (17:00)
[2020-03-25 17:03] LABS: BASOPHILS % (AUTO) 0 % (0-10); EOSINOPHILS # (AUTO) 0.1 10^3/uL (0.0-0.3); EOSINOPHILS % (AUTO) 1 % (0-10); HEMATOCRIT 35 % (35-52); HEMOGLOBIN 11.1 g/dL (11.5-16.0); LYMPHOCYTES # (AUTO) 1.5 10^3/uL (1.0-4.0); LYMPHOCYTES % (AUTO) 13 % (12-44); MEAN CORPUSCULAR HEMOGLOBIN 29 pg (25-34); MEAN CORPUSCULAR HGB CONC 32 g/dL (32-36); MEAN CORPUSCULAR VOLUME 91 fL (80-99); MEAN PLATELET VOLUME 10.1 fL (9.0-12.2); MONOCYTES # (AUTO) 1.6 10^3/uL (0.0-1.0); MONOCYTES % (AUTO) 13 % (0-12); NEUTROPHILS # (AUTO) 8.7 10^3/uL (1.8-7.8); NEUTROPHILS % (AUTO) 73 % (42-75); PLATELET COUNT 294 10^3/uL (130-400); WHITE BLOOD COUNT 11.9 10^3/uL (4.3-11.0)
[2020-03-25 17:20] LABS: ALBUMIN 3.5 GM/DL (3.2-4.5); BILIRUBIN,TOTAL 1.1 MG/DL (0.1-1.0); CALCIUM 9.3 MG/DL (8.5-10.1); CREATININE SERUM 1.22 MG/DL (0.60-1.30); POTASSIUM 3.5 MMOL/L (3.6-5.0); TOTAL PROTEIN 7.3 GM/DL (6.4-8.2)
[2020-03-25 17:25] LABS: BILIRUBIN,URINE NEGATIVE (NEGATIVE); CLARITY,URINE CLOUDY; COLOR,URINE YELLOW; GLUCOSE, URINE (UA) NEGATIVE (NEGATIVE); KETONES,URINE NEGATIVE (NEGATIVE); LEUKOCYTE ESTERASE ,URINE 3+ (NEGATIVE); NITRITE,URINE POSITIVE (NEGATIVE); PROTEIN,URINE 2+ (NEGATIVE)
--- NOTE | 2020-03-25 17:46 | Diagnostic Imaging Report ---
PROCEDURE: CT urinary tract, rule out kidney stone. TECHNIQUE: Multiple contiguous axial images were obtained through the abdomen and pelvis without the use of intravenous contrast. Auto Exposure Controls were utilized during the CT exam to meet ALARA standards for radiation dose reduction. INDICATION: Kidney stones and left-sided abdominal pain. Correlation is made with prior CT from 04/08/2019. Lung bases are clear. The liver is unremarkable. Gallbladder surgically absent. No biliary ductal dilatation is seen. Pancreas and spleen are unremarkable. No adrenal mass is identified. There is diffuse dilatation of the right renal collecting system and right ureter with associated urothelial thickening. This is seen on prior exam from 2019. However, no definite obstructing calculus is identified. The left kidney is atrophic with cortical thinning. There is also dilatation of the left renal collecting system and left ureter with associated urothelial thickening traced to the level of urinary bladder. No obstructing calculi are seen. No bladder calculi are detected. There is some trace bladder wall thickening. Features appear very similar to prior examination. Aorta is non-aneurysmal. Bowel loops are normal caliber. There is no ascites. Uterus is unremarkable. IMPRESSION: Overall stable noncontrast CT of the abdomen and pelvis when compared with exam from 04/08/2019. Bilateral hydroureteronephrosis, left greater with associated urothelial thickening and left renal atrophy are similar. This could be owing to chronic reflux. No obstructing calculi are seen. No acute feature is detected. Dictated by: Dictated on workstation # [id number]
[2020-03-25 17:57] LABS: BACTERIA,URINE FEW /HPF; WBC,URINE TNTC /HPF
[2020-03-25] MEDS ORDERED: CEFD300C3 PO (18:10)
[2020-03-25] MEDS ORDERED: ACHD5005 PO (18:10)
[2020-03-25] MEDS ORDERED: RX-HYDROCODONE/APAP 5/325 MG #4 TAB PK PO PRN (18:15)
[2020-03-25] MEDS ORDERED: cefTRIAXone FOR IV USE 2,000 MG in WATER (STERILE) FOR INJECTION 20 ML IV ONE (18:15)
[2020-03-25 18:34] VITALS: BP 125/72
== END 2020-03-25 18:37 | disposition home or self-care (01) ==
LOC: EDUNIT# 15:57 → ER 15:59
DX: N12 Tubulo-interstitial nephritis, not specified as acute or chronic (principal); E66.9 Obesity, unspecified; F31.9 Bipolar disorder, unspecified; F41.9 Anxiety disorder, unspecified; Z68.44 Body mass index [BMI] 60.0-69.9, adult; Z88.8 Allergy status to other drugs, medicaments and biological substances
CPT/HCPCS: 36415; 74176; 80053; 81000; 84703; 85025; 87088

== ENCOUNTER → 2023-03-31 | Outpatient (CLI) | payer MEDICAID ==
[~2023-03-31] MED LIST changes: +ACHD5005 PO; +HYDR-4085 PO; -HYDR-87 PO; -SULF1TAB35 PO; +SULF1TAB38 PO
== END ==
LOC: CARD 11:18
PROVIDERS: ATTEND Student in an Organized Health Care Education/Training Program
DX: I51.7 Cardiomegaly (principal); R60.0 Localized edema
CPT/HCPCS: 93306